=== PATIENT | male | born 1975 | race Caucasian/White ===

== ENCOUNTER 2020-08-26 18:18 | Inpatient (IN) | payer OTHER, SELFPAY ==
[2020-08-26 18:45] LABS: #Eosinphils 0.2 thou/uL (0.0-0.7); #Lymphocytes 1.6 thou/uL (1.20-3.40); #Monocytes 0.7 thou/uL (0.11-0.59); #Neutrophils 6.7 thou/uL (1.40-6.50); %Basophils 0.5 % (0.0-1.0); %Eosinophils 2.1 % (0.0-10.0); %Monocytes 7.3 % (0.0-10.0); %Neutrophils 73.1 % (42.0-75.0); Hemoglobin 14.1 g/dL (14.0-18.0); Mean Corpuscular Hemoglobin 34.2 pg (27.0-31.0); Mean Corpuscular Volume 97.8 fL (78.0-98.0); Mean Platelet Volume 7.3 fL (7.4-10.4); Platelet Count 248 thou/uL (130-400); RBC Distribution Width 12.4 % (11.5-14.5); Red Blood Cell (RBC) Count 4.14 mill/uL (4.70-6.10); White Blood Cell (WBC) Count 9.2 thou/uL (4.8-10.8)
[2020-08-26 19:09] LABS: ALT (SGPT) 67 U/L (8-55); AST (SGOT) 62 U/L (5-34); Alkaline Phosphatase 91 U/L (40-110); Anion Gap 13 mmol/L (10-20); BUN (Urea Nitrogen) 13 mg/dL (8.9-20.6); Bilirubin, Total 0.5 mg/dL (0.2-1.2); Calc. Creatinine Clearance 0 mL/min (70-130); Carbon Dioxide 23 mmol/L (22-29); Chloride 102 mmol/L (98-107); Estimated GFR-MDRD 89; Globulin 2.7 g/dL (2.4-3.5); Glucose 104 mg/dL (70-105); Lipase 8 U/L (8-78); Protein, Total 6.7 g/dL (6.0-8.3); Sodium 133 mmol/L (136-145)
--- NOTE | 2020-08-26 19:09 | RAD ---
Exam: Chest one view HISTORY:Chest pain Comparison: 02/05/2017 FINDINGS: Cardiac silhouette:Cardiomegaly Aorta: Unremarkable Pulmonary vessels: Normal Costophrenic angles: Small bilateral effusions LUNGS: Lungs are hyperinflated. Multifocal interstitial and alveolar opacities suggesting possible mu lti lobar pneumonia. Pneumothorax: No pneumothorax. Persistent opacification of the left lung apex. Osseous abnormalities: None IMPRESSION: 1. Multi lobar opacities suggesting multi lobar pneumonia. Continued surveillance is recommended. 2. Stable opacification of the left lung apex. 3. COPD.
[2020-08-26] MEDS ORDERED: Aspirin Chewable 81 MG TAB ONE ×2 (19:55→19:57)
[2020-08-26] MEDS ORDERED: Nitroglycerin 0.4 MG TAB 1 EACH ONE ×2 (19:55→22:48)
[2020-08-26] MEDS ORDERED: Furosemide 20 MG/2 ML VIAL ONE (19:58)
[2020-08-26 20:38] LABS: SARS-CoV-2 NAA Rapid Test Not Detected (NotDetected)
[2020-08-26] MEDS ORDERED: Azithromycin 500 MG VIAL ONE (20:49)
--- NOTE | 2020-08-26 21:03 | PDOC.FPRHP ---
- History of Present Illness Chief Complaint: SOB x1wk History of Present Illness: Mr. Zendejas is a 45M who presented to the ED for worsening SOB that started 1 wk ago. He went to his PCP on Sunday, who thought the SOB might be related to allergies and started him on Flonase. It did not work and he went back to his PCP on , she started him on some nebulizer breathing treatments. They did not work and he went back to his PCP on 08/25. He was diaphoretic and pale so she got an EKG with results she "didn't like" and sent him to the ED. He endorses orthopnea and PAD. 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 CXR showed multilobar opacities suggesting multilobar PNA in addition to stable opacification of the L lung apex. CBC was nml; CMP showed mild hyponatremia; BNP >2000 He denies cardiac hx aside from one episode of "swelling around his heart" and one episode of recurrent PVCs. He has never seen a Extrusion Supervisor. - Allergies/Adverse Reactions Allergies Allergy/AdvReac Type Severity Reaction Status Date / Time Penicillins Allergy Verified 08/27/20 00:06 Sulfa (Sulfonamide Allergy Verified 08/27/20 00:07 Antibiotics) - Home Medications Medication Instructions Recorded Confirmed Type Loratadine/Pseudoephedrine 1 each PO DAILY 08/27/20 08/27/20 History [Claritin-D 12 Hour Tablet] - History PMHx:COPD, hx of MAC PNA PSHx: hernia s/p repair FHx: lung cancer in dad, no DM or thyroid disease Social: tob use, EtOH abuse, marijuana use, hx of cocaine use - Review of Systems General: denies: fever/chills, weight/appetite/sleep changes Eyes: denies: vision changes ENT: reports: nasal congestion, rhinorrhea Respiratory: reports: cough, shortness of breath, exercise intolerance Cardiovascular: reports: chest pain, paroxysmal nocturnal dyspnea, orthopnea. denies: edema Gastrointestinal: denies: vomiting, diarrhea, abdominal pain, GI bleeding Genitourinary: reports: other (difficulty initiating stream). denies: incontinence - Vital signs BP: 92/78 HR: 82 RR: 22 Tmax: 97.5F Pox: 93% on RA - Physical Exam Constitutional: NAD, awake, alert and oriented, well developed HEENT: normocephalic and atraumatic, EOMI, grossly normal vision, grossly normal hearing, MMM -HEENT: White patches on oropharynx, can be scraped off Neck: supple, FROM, no LAD Chest: no-tender to palpation, no lesions Heart: RRR (difficult to auscultate), pulses present, no edema Lungs: CTAB, no respiratory distress, good air movement, no rales/rhonchi, no wheezing Abdomen: soft, no masses/distention Musculoskeletal: normal structure, normal tone, ROM grossly normal Neurological: no focal deficit Skin: no rash/lesions Heme/Lymphatic: no unusual bruising or bleeding, no purpura, no petechia, no LAD Psychiatric: normal mood and affect, good judgment and insight, intact recent and remote memory FMR H&P: Results - Labs Result Diagrams: 08/30/20 04:07 08/30/20 04:07 Lab results: WBC 9.2 thou/uL (4.8-10.8) 08/26/20 18:36 Hgb 14.1 g/dL (14.0-18.0) 08/26/20 18:36 Hct 40.5 % (42.0-52.0) L 08/26/20 18:36 MCV 97.8 fL (78.0-98.0) 08/26/20 18:36 Plt Count 248 thou/uL (130-400) 08/26/20 18:36 Neutrophils % 73.1 % (42.0-75.0) 08/26/20 18:36 Sodium 133 mmol/L (136-145) L 08/26/20 18:36 Potassium 5.0 mmol/L (3.5-5.1) 08/26/20 18:36 Chloride 102 mmol/L (98-107) 08/26/20 18:36 Carbon Dioxide 23 mmol/L (22-29) 08/26/20 18:36 BUN 13 mg/dL (8.9-20.6) 08/26/20 18:36 Creatinine 0.92 mg/dL (0.7-1.3) 08/26/20 18:36 Glucose 104 mg/dL (70-105) 08/26/20 18:36 Calcium 9.0 mg/dL (7.8-10.44) 08/26/20 18:36 Total Bilirubin 0.5 mg/dL (0.2-1.2) 08/26/20 18:36 AST 62 U/L (5-34) H 08/26/20 18:36 ALT 67 U/L (8-55) H 08/26/20 18:36 Alkaline Phosphatase 91 U/L (40-110) 08/26/20 18:36 CK-MB (CK-2) 8.0 ng/mL (0-6.6) H* 08/26/20 18:36 B-Natriuretic Peptide 2317.5 pg/mL (0-100) H 08/26/20 18:36 Serum Total Protein 6.7 g/dL (6.0-8.3) 08/26/20 18:36 Albumin 4.0 g/dL (3.5-5.0) 08/26/20 18:36 Lipase 8 U/L (8-78) 08/26/20 18:36 FMR H&P: A/P - Plan This is a 45M who presented to the ED for SOB x1wk Sepsis likely 2/2 PNA - SIRS: tachycardic, tachypneic - Clinically, lungs CTAB and satting well on RA - Hx of MAC PNA w/o immunosuppression, per pt Chronic opacities in L lung - CXR showed multilobar opacities suggestive of multilobar PNA - Started on Azithro and Rocephin in the ED Monitor QT for prolongation - 1L bolus LR - BCx ordered - Procal ordered Indeterminate trop suspected to be NSTEMI type 2 - EKG showed L anterior fascicular block and LVH, borderline prolonged QT - Trop 0.039 - CK-MB 8 - BNP 2317.5 - Trending trops, repeat EKG ordered - Caution with Zofran, Azithro, other QT prolonging agents Possible new-onset CHF - BNP 2317.5 - Given Lasix in ED - Clinically, not fluid overloaded - Endorses SOB, orthopnea, paroxysmal dyspnea - Hx of pericardial effusions - Echo ordered - Consider cards consult - Caution with fluid resuscitation EtOH abuse - Drinks EtOH daily - ASE protocol ordered Oral candidiasis - White exudates on palate, scraped off with tongue depressor - Increases suspicion for immunosuppression - Nystatin ordered Tobacco use - Smoking cessation counseling - Nicotine patch Drug use - Marijuana use - UDS ordered Dispo: inpt tele, LOS >48h Diet: HH, low Na DVT: Ruperto 40 GI Ppx: Pepcid Abx: Azithro, Rocephin IVF: SL PCP: [facility] in [facility] [place] [place] Code: Full FMR H&P: Upper Level - Plan Date/Time: 08/26/202101 Princess Vidal MD, have evaluated this patient and agree with findings/plan as outlined by internet sourcer resident. Pertinent changes/additions are listed here. HPI: 45 yo M with PMH of COPD, MAC pneumonia, and pericardial effusion presents for SOB. Patient reports his SOB has been worsening over the last few days. He presented to his PCPs office 3 days ago, reports he was diagnosed with seasonal allergies and sent home on Flonase. He reports his SOB has continued to worsen and he presented again to his PCP today who sent him to the ER. He reports symptoms of fatigue and paroxysmal nocturnal dyspnea. Denies chest pain/palpitations, fever/chills. Report rhinorrhea, denies pharyngitis. Denies nausea/vomiting/diarrhea/constipation. He currently smokes tobacco 2 PPD, has smoked since age 15. He also drinks 4-6 beers daily. ED: given nitro, Rocephin 2 g (22:42 08/26), Zofran, azithromycin 500 mg (08/27), furosemide 20 mg, nitro 0.4 mg, ASA 324 mg. Covid neg. CXR showed multifocal pneumonia and stable MAXIMO opacity, COPD EKG showed sinus tach, possible left atrial enlargement, LVH Physical exam: VS: 98.0, P87, R 18, O2 97% on RA, 150/63 General: cachectic male, no acute distress, cooperative, sitting upright in bed Mouth: poor dentition, no pharyngeal edema, + white exudates on palate that are removable Lungs: BCTA, no wheezing or crackles Cardiac: RRR, no murmurs Abd: +BS, soft, nontender to palpation Extremities: no cyanosis or edema A/P: Sepsis 2/2 CAP -Tachypneic, tachycardic, WBC wnl. Multifocal pneumonia on CXR. Hx of MAC pneumonia -Continue azithromycin and Rocephin -Procal and CRP pending -Blood and urine cx pending Likely new onset CHF -BNP 2300, however pt not fluid overloaded on exam. - formal Echo pending -s/p Lasix Ind Trops - suspect NSTEMI type 2, will continue to trend -Pt denies chest pain Tobacco Abuse -2 PPD, since age 15, 60 PY hx -Unit Leader cessation -nicotine patch while inpt Alcohol abuse -4-6 drinks daily -ASE scoring protocol -need to clarify last known drink in AM Hyponatremia -suspect 2/2 malnutrition vs alcohol abuse Protein/calorie malnutrition -2/2 diet vs alcohol abuse vs other -collateral specialist consulted Thrush -concerned for immunocompromised state -HIV, RPR, Hep C ordered -treat with nystatin powder Marijuana Abuse -aware Hx of Cocaine abuse -aware -UDS pending QTc prolongation -aware -QTc 496, on azithromycin -avoid other QT prolonging medications (Zofran) Hx COPD -no wheezing on exam, not on medications at home for this Mild transaminitis -Suspect 2/2 to alcohol abuse vs hepatic congestion vs other -AST is not 2x greater than ALT -consider liver sono in AM Diet: HH DVT ppx: Lovenox GI ppx: none PCP: [facility], [facility] Code: Full Dispo: admit to tele inpatient, LOS >48 hrs L Stephanie BINGHAM PGY3 Addendum - Attending - Attending Attestation Date/Time: 08/31/20 0436 I discussed Mr Zendejas with Dr. Cerna and Stephanie on the evening of 08/26/2020. I agree with the History, Examination, Assessment and Plan documented above with any addition or exceptions noted below.
[2020-08-26] MEDS ORDERED: Ondansetron PF 4 MG/2 ML Vial ONE (21:22)
[2020-08-26] MEDS ORDERED: cefTRIAXone\\ROCEPHIN 2 GM VIAL ONE (22:36)
[2020-08-27] MEDS ORDERED: Acetaminophen 325 MG TAB PO PRN (00:15)
[2020-08-27] MEDS ORDERED: Ondansetron ODT 4 MG TAB SL PRN (00:15)
[2020-08-27] MEDS ORDERED: Ondansetron PF 4 MG/2 ML Vial IVP PRN (00:15)
[2020-08-27 00:49] LABS: Lactic Acid 1.2 mmol/L (0.5-2.2)
[2020-08-27 01:49] LABS: Troponin I 0.041 ng/mL (< 0.028)
[2020-08-27] MEDS ORDERED: Enoxaparin Sodium 40 MG/0.4 ML SYRINGE SC SCH (02:15)
[2020-08-27 02:16] LABS: Troponin I 0.056 ng/mL (< 0.028)
[2020-08-27] MEDS ORDERED: Lactated Ringer's 1,000 ML IV SCH (04:30)
[2020-08-27 04:39] LABS: #Basophils 0.1 thou/uL (0.0-0.2); #Eosinphils 0.2 thou/uL (0.0-0.7); #Lymphocytes 1.7 thou/uL (1.20-3.40); #Monocytes 0.7 thou/uL (0.11-0.59); #Neutrophils 6.5 thou/uL (1.40-6.50); %Basophils 0.8 % (0.0-1.0); %Eosinophils 2.3 % (0.0-10.0); %Lymphocytes 18.8 % (21.0-51.0); %Monocytes 7.6 % (0.0-10.0); %Neutrophils 70.5 % (42.0-75.0); Hemoglobin 14.3 g/dL (14.0-18.0); Mean Corpuscular HGB CONC 34.2 g/dL (32.0-36.0); Mean Corpuscular Hemoglobin 33.5 pg (27.0-31.0); Mean Corpuscular Volume 97.9 fL (78.0-98.0); Mean Platelet Volume 7.4 fL (7.4-10.4); Platelet Count 260 thou/uL (130-400); RBC Distribution Width 12.4 % (11.5-14.5); Red Blood Cell (RBC) Count 4.26 mill/uL (4.70-6.10); White Blood Cell (WBC) Count 9.2 thou/uL (4.8-10.8)
[2020-08-27 05:00] LABS: ALT (SGPT) 77 U/L (8-55); AST (SGOT) 62 U/L (5-34); Alkaline Phosphatase 94 U/L (40-110); Anion Gap 10 mmol/L (10-20); BUN (Urea Nitrogen) 15 mg/dL (8.9-20.6); Bilirubin, Total 0.6 mg/dL (0.2-1.2); Calc. Creatinine Clearance 99 mL/min (70-130); Calcium 9.1 mg/dL (7.8-10.44); Carbon Dioxide 25 mmol/L (22-29); Chloride 100 mmol/L (98-107); Estimated GFR-MDRD Greater than 90; Globulin 2.7 g/dL (2.4-3.5); Glucose 90 mg/dL (70-105); Potassium 4.8 mmol/L (3.5-5.1); Protein, Total 6.7 g/dL (6.0-8.3); Sodium 130 mmol/L (136-145)
[2020-08-27 05:19] LABS: HIV (1/2) Antibody/Antigen Non-Reactive (NonReactive); HIV 1/2 INDEX 0.09 S/CO (<1.00); Hep C IgG Ab Non-Reactive (NonReactive); Hep C Index 0.08 S/CO (0-0.79); Syphilis Antibody Nonreactive (Nonreactive); Syphilis Antibody Index 0.08 S/CO (<1.00 Non-Reactive); Troponin I 0.049 ng/mL (< 0.028)
--- NOTE | 2020-08-27 06:26 | PDOC.FM ---
- Subjective Subjective: Patient was resting comfortably in bed at the time of evaluation. He endorsed mild SOB, but denied any crushing chest pain, N/V, or recent fevers or chills. Of note, the patient was questioned specifically about his former MAC infection, which he states happened approximately 10Y prior with subsequent evaluation conducted by the Department of Health. Patient denied any cause for such an infection, particularly with regard to known immunocompromise, HIV infection, IV drug use or risky sexual practices. Patient's only concern was that he wanted to have breakfast and go outside to smoke a cigarette. - Objective Vital Signs & Weight: Vital Signs (12 hours) Temp Pulse Resp BP Pulse Ox 08/27/20 03:30 97.6 F 08/27/20 03:08 104 H 24 H 112/68 98 08/27/20 02:30 98 08/27/20 00:05 97.9 F 107 H 16 115/77 98 Weight Weight 62.006 kg I&O: 08/25/20 08/26/20 08/27/20 06:59 06:59 06:59 Intake Total 981.5 Output Total 400 Balance 581.5 Result Diagrams: 08/27/20 04:20 08/27/20 04:20 Phys Exam - Physical Examination Constitutional: NAD HEENT: PERRLA, moist MMs Patchy white exudates in posterior pharynx Neck: no nodes, supple, full ROM Respiratory: no wheezing, no rales, no rhonchi E-to-A Egophany heards in RUL and RML Cardiovascular: RRR, no significant murmur, no rub Gastrointestinal: soft, non-tender, no distention, positive bowel sounds Musculoskeletal: no edema, pulses present Neurological: non-focal, moves all 4 limbs Lymphatic: no nodes Psychiatric: normal affect Skin: no rash Dx/Plan (1) Multifocal pneumonia Code(s): J18.9 - PNEUMONIA, UNSPECIFIED ORGANISM Status: Acute (2) History of Mycobacterium avium complex infection Code(s): Z86.19 - PERSONAL HISTORY OF OTHER INFECTIOUS AND PARASITIC DISEASES Status: Acute (3) New onset of congestive heart failure Code(s): I50.9 - HEART FAILURE, UNSPECIFIED Status: Acute (4) Alcohol abuse Code(s): F10.10 - ALCOHOL ABUSE, UNCOMPLICATED Status: Acute (5) Tobacco abuse Code(s): Z72.0 - TOBACCO USE Status: Acute (6) Marijuana abuse Code(s): F12.10 - CANNABIS ABUSE, UNCOMPLICATED Status: Acute (7) NSTEMI (non-ST elevated myocardial infarction) Code(s): I21.4 - NON-ST ELEVATION (NSTEMI) MYOCARDIAL INFARCTION Status: Acute - Plan Plan: Patient is a 45 y/o male with a 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 1. Multi-Lobar Pneumonia -SIRS: Tachycardic, Tachypneic -Patient has a Hx of MAC PNA w/o Immunosuppression - chronic opacities in left lung -CXR: Multi-lobar opacities -s/p 1L Azithromycin and Ceftriaxone in the ED - may consider altering drug regimen based on repeat EKG -WBCs: 9.2 -Procal: 0.06 -CRP: 0.89 -Lactic Acid: 1.2 -BCx: Pending -UCx: Pending 2. Indeterminate Troponins -Likely 2/2 to NSTEMI, Type 2 -EKG: L Anterior Fascicular Block, LVH with borderline Prolonged QT Interval -Trop: 0.039 > 0.049 -CK-MB: 8 -BNP: 2317.5 -Repeat EKG: Pending -See above for caution with Azithromycin - Jagruti DC'd 3. Possible New-Onset CHF -Patient complains of prolonged SOB, orthopnea and HUTCHINSON -Patient endorses a remote Hx of Pericardial Effusions - cause unknown -BNP: 2317.5 -s/p Lasix x1 in the ED -Echo: Pending - will consider Cardiology consult based on results -Will proceed cautiously with fluid resuscitation 4. EtOH Abuse -Patient endorses daily EtOH Abuse - last EtOH unknown -ASE Protocol -Lorazepam 2 mg PO Q4H PRN 5. Oral Candidiasis -White exudates noted on palate - easily scraped off with tongue depressor -Increased suspicion for immunosuppression -HIV: Pending -RPR: Pending -Nystatin SSW 6. Tobacco Use -Nicotine Patch 21 mg Daily 7. Drug Abuse -Patient endorses frequent MJ Abuse -UDS: Cocaine, MJ Code: Full PCP: CC Diet: HH w/ Low Sodium Activity: Ad zhang VTE PPx: None - SAUL Score: 2 Dispo: Patient is currently stable and admitted to the Telemetry Floor for treatment of Multi-Lobar Pneumonia with ongoing investigation into possible New- Onset CHF and cause for Immunocompromise. Will continue ABx as per above and monitor vital signs closely. Pending repeat EKG and Echo, will alter ABx regimen and consult Cardiology as indicated. Expected LOS > 48H. Addendum - Attending - Attending Attestation Date/Time: 08/27/20 4065 I personally evaluated the patient and discussed the management with Dr. Ashley. I agree with the History, Examination, Assessment and Plan documented above with any addition or exceptions noted below.
[2020-08-27 07:22] LABS: Amphetamine Not Detected (NotDetected); Cocaine Metabolite Screen Detected (NotDetected); Medtox Reader # READER 4; Methamphetamine Not Detected (NotDetected); Opiate Screen Not Detected (NotDetected); Phencyclidine (PCP) Not Detected (NotDetected); THC/Cannabinoid Screen Detected (NotDetected)
[2020-08-27 07:23] LABS: Barbiturates Screen Not Detected (NotDetected); Benzodiazepine Screen Not Detected (NotDetected); Medtox Control Line Valid? VALID (VALID); Methadone Not Detected (NotDetected); Oxycodone Screen Not Detected (NotDetected); Tricyclic Screen Not Detected (NotDetected)
[2020-08-27] MEDS: Famotidine 20 MG TAB PO SCH ×2 (08:19→21:28)
[2020-08-27] MEDS: Nicotine 21 MG PATCH TD SCH (08:20)
[2020-08-27] MEDS ORDERED: Lorazepam 1 MG TAB PO PRN (08:30)
[2020-08-27] MEDS ORDERED: Nystatin 100,000 Units/mL UDCUP SSW SCH (09:00)
[2020-08-27] MEDS ORDERED: FLU VACC QS2020-21(6MOS UP)/PF 60 MCG/0.5 ML SYRINGE IM ONE (09:00)
[2020-08-27] MEDS: Nystatin 500,000 UNITS/5 ML UDCUP SSW SCH ×4 (12:00→21:28)
[2020-08-27] MEDS: Sodium Chloride 1 GM TAB PO SCH (12:24)
[2020-08-27] MEDS ORDERED: Furosemide 40 MG/4 ML VIAL SLOW IVP SCH (15:00)
[2020-08-27] MEDS ORDERED: Milrinone Lactate/D5W 20 MG in Premix Bag 1 BAG IVPB SCH (15:45)
[2020-08-27] MEDS: Carvedilol 3.125 MG TAB PO SCH (16:35)
[2020-08-27] MEDS ORDERED: Azithromycin 500 MG in Sodium Chloride 0.9% 250 ML 250 ML IVPB SCH (21:00)
[2020-08-27] MEDS: cefTRIAXone\\ROCEPHIN 1 GM in Sodium Chloride 0.9% 100 ML IVPB SCH (21:28)
[2020-08-27] MEDS: Enoxaparin Sodium 60 MG/0.6 ML SYRINGE SC SCH (21:30)
[2020-08-28 04:17] LABS: #Basophils 0.1 thou/uL (0.0-0.2); #Eosinphils 0.4 thou/uL (0.0-0.7); #Lymphocytes 1.8 thou/uL (1.20-3.40); #Monocytes 0.7 thou/uL (0.11-0.59); #Neutrophils 4.5 thou/uL (1.40-6.50); %Basophils 1.3 % (0.0-1.0); %Eosinophils 4.9 % (0.0-10.0); %Lymphocytes 24.1 % (21.0-51.0); %Monocytes 9.1 % (0.0-10.0); %Neutrophils 60.7 % (42.0-75.0); Hemoglobin 15.8 g/dL (14.0-18.0); Mean Corpuscular HGB CONC 35.6 g/dL (32.0-36.0); Mean Corpuscular Hemoglobin 34.6 pg (27.0-31.0); Mean Corpuscular Volume 97.1 fL (78.0-98.0); Mean Platelet Volume 7.8 fL (7.4-10.4); Platelet Count 275 thou/uL (130-400); RBC Distribution Width 12.3 % (11.5-14.5); Red Blood Cell (RBC) Count 4.56 mill/uL (4.70-6.10); White Blood Cell (WBC) Count 7.5 thou/uL (4.8-10.8)
[2020-08-28 04:38] LABS: Iron 62 ug/dL (65-175); Iron Binding Capacity, Total 258 mcg/dL (261-462)
[2020-08-28 04:42] LABS: ALT (SGPT) 121 U/L (8-55); AST (SGOT) 88 U/L (5-34); Albumin 3.7 g/dL (3.5-5.0); Alkaline Phosphatase 92 U/L (40-110); Anion Gap 12 mmol/L (10-20); BUN (Urea Nitrogen) 15 mg/dL (8.9-20.6); Bilirubin, Total 0.5 mg/dL (0.2-1.2); Calc. Creatinine Clearance 102 mL/min (70-130); Calcium 8.7 mg/dL (7.8-10.44); Carbon Dioxide 23 mmol/L (22-29); Chloride 101 mmol/L (98-107); Estimated GFR-MDRD Greater than 90; Globulin 2.5 g/dL (2.4-3.5); Glucose 121 mg/dL (70-105); Potassium 3.7 mmol/L (3.5-5.1); Protein, Total 6.2 g/dL (6.0-8.3); Sodium 132 mmol/L (136-145)
--- NOTE | 2020-08-28 05:46 | PDOC.FM ---
- Subjective Subjective: Mr. Sanchez is doing well this morning. He denies any SOB and says he only woke up once catching his breath which is an improvement. He denies any cocaine use. - Objective Vital Signs & Weight: Vital Signs (12 hours) Temp Pulse Resp BP BP Pulse Ox 08/28/20 04:00 97.5 F L 92 15 103/80 103/80 96 08/28/20 00:05 97 08/27/20 23:47 115/84 08/27/20 23:44 98.4 F 111 H 19 115/84 97 08/27/20 19:10 97.6 F 115 H 20 111/73 95 Weight Admit Weight 62.006 kg Weight 60.827 kg I&O: 08/26/20 08/27/20 08/28/20 06:59 06:59 06:59 Intake Total 981.5 960 Output Total 620 1650 Balance 361.5 -690 Result Diagrams: 08/28/20 03:39 08/28/20 03:39 EKG Reviewed by me: Yes (tele: sinus tach 110-115s) Phys Exam - Physical Examination Constitutional: NAD HEENT: moist MMs, sclera anicteric Neck: full ROM Respiratory: no wheezing, clear to auscultation bilateral increased rate Gastrointestinal: soft, non-tender, positive bowel sounds Musculoskeletal: no edema, pulses present Neurological: moves all 4 limbs Psychiatric: normal affect, A&O x 3 Dx/Plan - Plan Plan: Patient is a 45 y/o male with a 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 1. New-Onset Biventricular HF -Patient complains of prolonged SOB, orthopnea and HUTCHINSON and endorses a remote Hx of Pericardial Effusions - cause unknown -BNP: 2317.5, s/p Lasix x1 in the ED -Echo: prethrombus in IVC, increase LV, EF <15% -Consult: Ajith () - entresto, carvedilol, coronary angiogram -Consult: Samy - milrinone drip, recommends abdominal ultrasound to evaluate for hepatomegaly and splenomegaly, consider transfer to a higher care center for possible LVAD or right ventricular biopsy -Hemachromatosis suspicion: iron low, TIBC low, ferritin increased at 373.62, transferrin saturation 24%. Seems unlikely. 2. Dilated Cardiomyopathy See plan above 3. Multi-Lobar Pneumonia -SIRS: Tachycardic, Tachypneic -Patient has a Hx of MAC PNA w/o Immunosuppression - chronic opacities in left lung -CXR: Multi-lobar opacities -s/p 1L Azithromycin and Ceftriaxone in the ED, discontinue azithromycin, continue ceftriaxone -WBCs: 9.2, Procal: 0.06, CRP: 0.89, Lactic Acid: 1.2 -BCx: Pending -UCx: Pending 4. Indeterminate Troponins -Likely 2/2 to NSTEMI, Type 2 -EKG: L Anterior Fascicular Block, LVH with borderline Prolonged QT Interval -Trop: 0.039 > 0.049 > 0.056 > 0.049 -CK-MB: 8 -BNP: 2317.5 -Repeat EKG: Pending 5. EtOH Abuse -Patient endorses daily EtOH Abuse - last EtOH unknown -ASE Protocol -Lorazepam 2 mg PO Q4H PRN 6. Oral Candidiasis -White exudates noted on palate - easily scraped off with tongue depressor -Increased suspicion for immunosuppression -HIV: negative, RPR: negative -Nystatin SSW 7. Tobacco Use -Nicotine Patch 21 mg Daily 8. Drug Abuse -Patient endorses frequent MJ Abuse -UDS: Cocaine, MJ Code: Full PCP: CC Diet: HH w/ Low Sodium Activity: Ad zhang VTE PPx: None - SAUL Score: 2 Dispo: Patient is currently stable and admitted to the Telemetry Floor for treatment newly diagnosed biventricular heart failure and continued treatment of multi-lobar pneumonia with ongoing investigation into cause for immunocompromise. Will continue treatment as per above and monitor vital signs closely. Consider transfer to a higher care center. Expected LOS > 48H. Addendum - Attending - Attending Attestation Date/Time: 08/28/20 3636 I personally evaluated the patient and discussed the management with Dr. Garces. I agree with the History, Examination, Assessment and Plan documented above with any addition or exceptions noted below. Patient currently on a milrinone drip this a.m. Appreciate recs from Dr. Pablo. [facility] unable to [facility] pt as a transfer. Ct chest ordered and additional labs to look for other causes of pneumonia per recs of Dr. Pablo. Consulting ID.
--- NOTE | 2020-08-28 06:10 | CON ---
DATE OF CONSULTATION: 08/27/2020 SERVICE: Advanced Heart Failure Cardiology Consult Service. REASON FOR CONSULT: Acute heart failure. HISTORY OF PRESENT ILLNESS: Mr. Keyur Zendejas, previously healthy 45-year-old gentleman, presented with severe fatigue and shortness of breath. 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 In fact, he was working full-time at [employer] in [place], [place]. He did not notice there is anything really wrong. He denies any fever, chills, or any infectious spells. About 10 weeks ago, he began to notice progressive fatigue. He could do less and less at work and on the weekend all he could do was sleep. About 10 days ago, his symptoms become much more severe. He cannot sleep at night. He will go to sleep at night and then 2 hours later, he will wake up, gasping for breath, walk around, go back to sleep again and wake up. Then for the past week, he was not able to work at all. Eventually, he called his primary care. His primary care physician gave him medication for allergy. It did not have an effect and he went back to his primary care again on Sunday. The ECG was done, it was concerning to the primary care, then he was referred to [facility] for admission. PAST MEDICAL HISTORY: During this initial visit, he denied of having any past medical issues. SOCIAL HISTORY: 1. He has smoked for 30 years, is an active smoker, a pack per day, so he has a 30 pack-year smoking history. 2. He is an active drinker. He drinks about 4 to 8 beers per day or perhaps more. However, he has only been doing that for about 1 to 2 years, that is what he claims. 3. Illicit drug use: He denies any illicit drug use; however, he was tested positive for cocaine and also tested positive for marijuana. After that, he denies cocaine use, but he admits to marijuana use. FAMILY HISTORY: His father at age 50 due to brain cancer; however, his father had a heart attack and received stents at age 47. His mother is still alive and well at age 70. He has one brother who is without any problems. REVIEW OF SYSTEMS: GENERAL: He is fatigued. HEENT: There is no change in vision, hearing, or swallowing. PULMONARY: Please see HPI. CARDIAC: Please see HPI. GI: He does not have any complaints of nausea, vomiting, or diarrhea. Until more recently, he did not have early satiety. : He is able to urinate well. MUSCULOSKELETAL: He does not complain of any joint or muscular pains. INTEGUMENT: There is no new skin breakdown. NEUROLOGIC: There are no new focal deficits or weaknesses. MEDICATIONS: His current medications include; 1. Aspirin 81 mg daily. 2. Carvedilol at 1.56 b.i.d. 3. Ceftriaxone 1 g daily. 4. Enoxaparin 60 mg b.i.d. 5. Famotidine 20 mg b.i.d. 6. Ativan 2 mg q.4 hours p.r.n. 7. Nicotine patch 21 mg daily, then switch. 8. Entresto at 24/ combination half tablet b.i.d. PHYSICAL EXAMINATION: VITAL SIGNS: Heart rate 106, blood pressure 115/83, and he is in sinus tachycardia. His telemetry was reviewed, he is in sinus tachycardia without concerning arrhythmia. GENERAL: He is a thin appearing gentleman. However, he is very fatigued. He is also very short of breath. Taking a few steps will cause shortness of breath and after talking will cause shortness of breath. HEENT: Showed EOMI. Oropharynx showed very poor dentition, but moist mucosa. NECK: His JVP is about 11 cm. PULMONARY: He has good air movement bilaterally, maybe there is very very small amount of crackles at the deep left base. CARDIAC: Tachycardic. Normal S1 and S2, there is 2/6 holosystolic murmur at the apex. However, his PMI is severely laterally and inferiorly displaced, it is about 8th rib or lower and half way towards the mid axillary line. ABDOMEN: Soft, nontender, but the liver seemed to be enlarged. EXTREMITIES: His lower extremities are currently without edema; however, it is cool to touch. Barely palpable radial pulses and minimal dorsalis pedis pulses. DIAGNOSTIC STUDIES: His echocardiogram from August 27, 2020, was reviewed. 1. His left ventricle is very dilated with LVIDd of 8.05 cm. 2. His left ventricular ejection fraction is 10% or worse. 3. His has moderate to severe mitral regurgitation. 4. He has grade 3 diastolic dysfunction, which is a restrictive filling pattern. 5. His right ventricle is dilated with moderately depressed right ventricular function. ASSESSMENT: Unfortunate 45-year-old gentleman presented with acute heart failure with reduced ejection fraction. It is dilated cardiomyopathy with combined systolic and diastolic dysfunction. He also has right ventricular dysfunction. Thus it is biventricular failure. His heart failure is likely to be chronic and progressive given his echocardiographic findings. Right now, the cause of his cardiomyopathy is unknown. He has look of a post-myocarditis. However, drug use, alcohol, and also coronary artery disease that is undiagnosed can all play a role. He is definitely showing signs of poor perfusion. Being so fatigued, being unable to do any meaningful activities, and unable to really concentrate during exam, all points to hypoperfusion. Fortunately, he is not too volume overloaded, it is only mildly so. Thus at this point, we need to optimize his hemodynamics, so we could make a diagnosis. If at all possible, slowly add on heart failure medications. Ideally, he should be transferred to a center that can evaluate him for urgent left ventricular assist device or urgent heart transplant evaluation. If this is a rapidly progressing myocarditis, he does not have very much time. Please see the following for my detailed recommendations. RECOMMENDATIONS: 1. Agree with starting milrinone. Start at 0.125 mcg/kg per minute. If his systolic blood pressure remains above 95 mmHg, increase milrinone to 0.25 mcg/kg per minute. 2. Agree with starting Entresto 24/26 half tablet twice a day. 3. If the patient suddenly drops his blood pressure, stop milrinone immediately and switch to dobutamine at 2.5 mcg/kg per minute and then titrate up to 5 mcg/kg per minute. 4. If the patient drops the blood pressure, he needs to transfer to the CCU immediately. At that point, a central line will be needed. Likely at that point, he will need combination of dobutamine plus norepinephrine. 5. Ideally, a coronary angiogram will be useful. Identifying critical blockage can provide a good solution to solve this problem. 6. Ideally, a right ventricular biopsy to look for inflammatory cells of myocarditis is also good to do. However, due to lack of insurance, he will probably not be able to transfer to a center that can perform this. 7. If at all possible, please assist the patient in finding a center who would take an unfunded patient for urgent advanced heart failure evaluation. 8. Please work with Case Management and Heart Failure Team in establishing long- term medication for heart failure. 9. Please do ultrasound of the abdomen to look for hepatomegaly and also look for splenomegaly. 10. Please assist patient in establishing Medicaid or Medicare. He absolutes needs healthcare insurance. It has been a pleasure taking care of Mr. Keyur Zendejas. If you have any questions, please give me a call. This consultation took about 70 minutes. This includes personally performing history and physical, reading of echocardiogram, coordinating care with multiple services, holding family meeting with the patient and his mother, and direct patient interaction. Job ID: [id number] [facility]Rand
--- NOTE | 2020-08-28 07:36 | CON ---
DATE OF CONSULTATION: 08/27/2020 INDICATION FOR CONSULTATION: A 45-year-old male with a history of drug use and alcohol abuse, who presented with worsening dyspnea and an echo that demonstrated an EF of less than 15%. We are asked to see him for this. HISTORY: This is a pleasant 45-year-old gentleman who has a past medical history significant for MAC pneumonia approximately 10-12 years ago and a pericardial effusion due to unknown cause in 1998. He also has a history significant for at least a 53-slss-iyac history with the patient endorsing up to 5 packs a day smoked at one point and alcohol use 4-8 beers per day, as well as marijuana use, who presented to the ED for worsening dyspnea over the last week. He reports that this past Sunday, he went to his primary care provider, Concepcion Wilson in [place], for dyspnea and she diagnosed him with seasonal allergies and gave him a script for Flonase, which he reported did not help. He then returned to the clinic on Sunday and she gave him a nebulizer which he reported did not help. He returned once again and she performed an EKG at that time after which she recommended he go to a cardiac hospital in [place] to be evaluated. He spoke with his mother and agreed to meet her at the [facility] as this was a mid point for both of them. He reports that along with the worsening dyspnea over the last week, he does endorse new orthopnea and a dry intermittent cough. He denies any fever or any chest pain, palpitations, chest tightness, or abdominal pain. He reports that these are new symptoms and he has never experienced this before. Upon evaluation in the ER he was found to have an initial troponin of 0.039 with a BNP of 2317, and a chest x-ray demonstrated multilobar opacities suggesting multilobar pneumonia, stable opacification of the left lung apex, and COPD. He was given 20 mg of IV Lasix and started on ceftriaxone and azithromycin for his pneumonia. Today, he continues to endorse orthopnea and dyspnea and continued to deny any chest pain or tightness. His troponins were monitored and peaked at 0.056 before down trending. At this time, he has a positive balance on his fluid intake of 361 mL. PAST MEDICAL HISTORY: Significant for the above history of MAC pneumonia, treated by the health department; a pericardial effusion due to unknown cause in 1998, treated with reported anti-inflammatories, what looks like COPD based on the chest x-ray finding; history of hypertension that resolved on its own per patient without treatment. FAMILY HISTORY: Father had lung cancer from smoking and had a myocardial infarction at age 47, at age 50. Paternal grandfather had an AL at age 52 and . SOCIAL HISTORY: The patient endorses smoking 2 packs a day up until last week when he started to have difficulty breathing. 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 Endorses drinking 4-8 beers per day. Endorses occasional marijuana use. The patient did not endorse cocaine use, though this came out positive on his urine drug screen. ALLERGIES: PENICILLIN AND SULFA. MEDICATIONS: Prior to admission included 1. Claritin-D. 2. Flonase. 3. Nebulized treatments. REVIEW OF SYSTEMS: A 12-point review of systems is unremarkable except for what was noted in history of present illness. PHYSICAL EXAMINATION: GENERAL: A slender appearing, pleasant gentleman, who is in no acute distress at this time. VITAL SIGNS: Temperature 97.4, pulse 108, respiratory rate 22, O2 saturation 98% on room air, blood pressure 109/78. HEENT: Head is normocephalic and atraumatic. NECK: Supple with full range of motion. Trachea midline. JVD present. CHEST: Diminished breath sounds on bilateral lower lobes. No wheezing, rales, or rhonchi appreciated. CARDIOVASCULAR: Regular rate and rhythm with normal S1, S2 with no notable murmurs appreciated. ABDOMEN: Positive bowel sounds without any masses appreciated. EXTREMITIES: No clubbing, cyanosis, or edema. Full range of motion throughout. NEUROLOGIC: He appears to be neurologically intact without any gross focal motor deficits appreciated. LABORATORY DATA: Sodium 130, potassium 4.8, chloride 100, BUN 15, creatinine 0.83, GFR greater than 90, AST 62, ALT is 77, troponin 0.049, C-reactive protein 0.89, BNP 2317, procalcitonin 0.06, TSH 1.99. IMPRESSION: 1. Reduced ejection fraction heart failure. Echocardiogram today demonstrates an ejection fraction less than 15% with a significantly increased left ventricular size and restrictive filling pattern noted. Due to the nature of his presentation and the severity of his disease, this has likely been a chronic problem. He was given 20 mg IV Lasix on admission and is still positive on his fluid status. We will add a half tab Entresto b.i.d. and 1.56 mg p.o. b.i.d. Coreg to be held with systolics less than 100. We will also start the patient on 81mg aspirin and will give the patient another dose of 40 mg of IV Lasix to see if this helps him better diurese. The patient will likely benefit from a cardiac catheterization and a LifeVest before he goes home. It appears that the patient is uninsured at this time and would recommend Case Management be involved to help the patient get LifeVest. 2. Dilated cardiomyopathy. See recommendations above. 3. History of drug use. The patient admits to marijuana use, but does not admit to cocaine use, though cocaine is positive on urine drug screen. 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 4. Tobacco abuse. The patient reports that he decided to cut back to 1 pack a day this past week due to worsening dyspnea. Continue to encourage patient to stop smoking as this has likely contributed to his cardiac pathology. 5. Alcohol abuse. The patient drinks up to 4 to 8 beers per day. Continue ASE protocol per primary team. 6. Indeterminate troponins, peaked at 0.056 and it has since trended down. Patient denies chest pain at this time. 7. 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 The patient has a high likelihood of developing a clot and downward side effects of that including stroke. The patient is on 60 mg of Lovenox b.i.d. at this time for therapeutic Lovenox. Would recommend to continue this at this time. 8. Pneumonia. Continue IV antibiotics per primary team. Dr. López evaluated the patient during the consultation and agrees with the assessment and plan. We will continue to follow along with you during the patient's hospital course. Job ID: [id number] [facility]
[2020-08-28] MEDS: Carvedilol 3.125 MG TAB PO SCH ×2 (07:50→16:22)
[2020-08-28] MEDS: Aspirin 81 mg Enteric Coated Tablet PO SCH (07:52)
[2020-08-28] MEDS: Nicotine 21 MG PATCH TD SCH (07:52)
[2020-08-28] MEDS: Enoxaparin Sodium 60 MG/0.6 ML SYRINGE SC SCH ×2 (07:52→21:30)
[2020-08-28] MEDS: Nystatin 500,000 UNITS/5 ML UDCUP SSW SCH ×4 (07:52→21:30)
[2020-08-28] MEDS: Famotidine 20 MG TAB PO SCH ×2 (07:52→21:30)
[2020-08-28] MEDS: Sodium Chloride 1 GM TAB PO SCH (08:01)
[2020-08-28] MEDS ORDERED: Iopamidol-370 76% 500 ML 1 ML ONE (09:18)
--- NOTE | 2020-08-28 11:45 | RAD ---
RADIOGRAPH CHEST 2 VIEW: DATE: 08/28/2020 TIME: 11:32 AM HISTORY: 45-year-old male follow-up abnormal chest radiograph. "Multilobar pulmonary opacities" COMPARISON: 08/26/2020 FINDINGS: Again noted is the severe left apical pleural thickening, chronic left apical volume loss with trache al deviation to the left, and multifocal patchy pulmonary opacities throughout the left upper and mid lung zones. This appearance has not changed since 08/26/2020. Although the left apical pleural thi ckening was present on 02/05/2017 chest radiograph, along with tracheal deviation to the left, most of the left upper and mid lung zone pulmonary opacities were not present at that time. However, on a left shoulder radiograph of 01/14/2020, those left pulmonary opacities were present, and appears similar to the current chest radiograph. Therefore, these appear to be severe chronic pulmonary wagoner es on the left. There are extensive contralateral apical bullae and hyperlucency in the right upper lobe. Diffusely prominent interstitial markings throughout the right mid and lower lung zones appears simil ar to 08/26/2020. Blunting of the lateral costophrenic angles bilaterally on frontal view. No interval change overall in the frontal view compared to 08/26/2020. Lateral view demonstrates mild blunting of bilateral posterior costophrenic angles. No cardiomegaly. IMPRESSION: 1) severe left upper lobe pulmonary changes and left apical pleural changes, appear to be chronic, si gnificantly worse since 02/05/2017, but apparently stable since 01/14/2020. This appearance is suggestive of sequelae of prior inflammatory process such as previous tuberculosis, previous severe p neumonia, and/or pneumoconiosis. 2) severe paraseptal emphysema involving right upper lobe. 3) bilateral pleural thickening. 4) interstitial densities throughout the right mid and lower lung zones. Uncertain whether chronic or acute. 5) recommend continued follow-up..
--- NOTE | 2020-08-28 14:15 | PDOC.BPN ---
- Brief Progress Note Called [facility] in [place], [place] to inquire about possible transfer. Was informed they have no beds. This is the second attempt made as Dr. Senthil Cerna tried to call last night.
--- NOTE | 2020-08-28 15:01 | ULT ---
Sonogram abdomen complete HISTORY: Upper abdomen pain. Dyspnea. FINDINGS: Gallbladder shows no focal abnormalities. Some artifactual echogenicity is noted on several images. Common duct is 0.2 cm. Liver unremarkable without focal mass or intrahepatic biliary dilatation. No f ree fluid. The spleen, kidneys, and visualized portions of the abdominal aorta, IVC, and pancreas are within nor mal limits. IMPRESSION : No abnormalities are demonstrated.
[2020-08-28] MEDS: Milrinone Lactate/D5W 20 MG in Premix Bag 1 BAG IVPB SCH ×2 (16:21→22:42)
[2020-08-28 17:14] LABS: HBSAB Concentration Less than 8.00 mIU/mL; HBSAg Index 0.17 S/CO (0-0.99); Hep B Core Total Ab Non-Reactive (NonReactive); Hep B Core Total Index 0.05 S/CO (0-0.79); Hep B Surf AB Non-Reactive (NonReactive); Hep B Surf Ag Non-Reactive S/CO (NonReactive)
--- NOTE | 2020-08-28 17:24 | PRG ---
DATE OF SERVICE: 08/28/2020 SERVICE: Advanced Heart Failure Cardiology Consulting Service. SUBJECTIVE: Mr. Zendejas had a good day. He felt much better with combination of milrinone and also IV Lasix. He is able to breathe easier. He was able to sleep better. He says the best night's sleep he had in about 2 weeks. He also noticed that he has much more energy level and he is less short of breath. He was much pleased with the results. Due to his chest x-ray findings, questions were asked. He was treated for Mycobacterium avium-intracellulare. However, he did not finish the treatment. He also had multiple sexual partners in the past. The last one he came with several months ago. He denied injectable drug use. He does admit to marijuana use. Thus, this completes a more accurate picture of his status. REVIEW OF SYSTEMS: GENERAL: There is no fever, chills, or productive cough. HEENT: There is no change in vision, hearing, or swallowing. PULMONARY: He is less short of breath. CARDIAC: There is no palpitation, chest pain, or syncope. GI: There is no nausea, vomiting, or diarrhea. : He is able to urinate on his own. MUSCULOSKELETAL: There is no muscle or joint pains. INTEGUMENT: There are no skin breakdowns. NEUROLOGIC: There are no new focal deficits or weaknesses. MEDICATIONS: He is currently on are, 1. Aspirin 81 mg daily. 2. Carvedilol at 1.5 twice a day. 3. Ceftriaxone at 1 g daily. 4. Enoxaparin at 60 mg twice a day. 5. Pepcid 20 mg b.i.d. 6. Milrinone currently at 0.125 mcg/kg/min. 7. Nicotine patch 21 mg daily. 8. Nystatin swish and swallow 500,000 units. 9. Sacubitril/valsartan half tablet twice a day. The telemetry was reviewed. He shows sinus rhythm with occasional PVC. There is no other concerning rhythm. PHYSICAL EXAMINATION: VITAL SIGNS: His most recent vitals are heart rate 97, blood pressure 107/86. GENERAL: He is alert and conversational, resting comfortably in bed and also sitting up easily. He is more energetic and he is able to speak in longer sentences today than yesterday. HEENT: Shows EOMI. His oropharynx has really poor dentition. There is some possible white material. He also has noticeable temporalis wasting to suggest chronic malabsorption or chronic malnutrition. NECK: His JVP is only about 8 or 9 cm today. Thus, he is not volume overload today. PULMONARY: There is good air movement, however, there are some fine Velcro-like crackles. CARDIAC: Regular rate and rhythm. Normal S1, S2. There is 2/6 holosystolic murmur near the apex. His PMI is very much inferiorly and laterally displaced. ABDOMEN: Soft, nontender. Positive bowel sounds. EXTREMITIES: His lower extremities are skinny without edema. LABORATORY DATA: His laboratory values today are white cell count 7.5, hemoglobin 5.8, platelets 295. His chemistry shows sodium 132, potassium 3.6, BUN 15, creatinine 0.8. His other laboratory values show that his ferritin is mildly elevated at 374. His iron is low at 62. His TIBC also reduced at 258. He has a persistently elevated AST and ALT. This is just a chronic liver dysfunction or chronic liver damage. Chest x-ray was reviewed, 1. It shows mild cardiomegaly. 2. It shows bilateral infiltrates and scars on the lung, with prominent infiltrates in the right lung. 3. There are reticulonodular patterns in bilateral lungs. 4. There is also possibility of cavitary lesions. 5. There is pleural effusion. ASSESSMENT: 45-year-old gentleman has an underlying infectious and possibly immunodeficient process driving this whole picture. His chest x-ray finding of infiltrates and scars in bilateral lungs, especially in the right is concerning for an active Mycobacterium avium-intracellulare fungus or tuberculosis infections. This needs to be quickly checked. An infectious process could be driving his cardiomyopathy. He resides in [place] Heart Association stage C, [place] Heart Association class IIIB heart failure with reduced ejection fraction. He also has a right ventricular dysfunction. Currently, he is euvolemic. With augmentation of milrinone, he is heading toward compensated. We will attempt to increase his milrinone today. If his liver enzymes improve, then we know it is from poor perfusion. If the liver enzymes does not improve or gets worse, then this is probably infectious process. If it is possible, the eventual goal will be turning off the milrinone, and discharging him on combination of carvedilol and Entresto plus as needed diuretics. Please see the following for my recommendations. RECOMMENDATIONS: 1. Consider consulting infectious disease specialist too for this case. 2. Please check for hepatitis B infection. Testing includes hepatitis B surface antigen, hepatitis B surface antibody, hepatitis B core antibody, hepatitis B e-antigen, quantitative PCR for HBV DNA, a blood test for tuberculosis such as gamma interferon or T-Spot, blood test for fungus such as Fungitell. 3. Perform CT scan of the chest to look for active HE or tuberculosis infection. 4. If that IV dye is given, the patient can receive IV fluids to clear the dye, that will be 1 mL/kg/min for either 6 to 12 hours. 5. Increase milrinone to 0.25 mcg/kg/min. 6. Increase carvedilol to 3.125 p.o. b.i.d., eventually we will increase up to 6.25. 6.25 mg twice a day is the minimum threshold to obtain survival benefit. 7. Currently, he does not need diuretics. However, he will likely to need diuretics in the future. 8. Coronary angiogram will also be helpful. It has been a pleasure of taking care of Mr. Zendejas. If you have any questions, please give me a call. Visitation time was 50 minutes today. This includes personally performing history and physical, reading chest x-ray, reviewing multiple data sources, coordinating care with other service, holding family meeting to fully understand his past with their current goals, and direct patient interaction. Job ID: [id number] [facility]
--- NOTE | 2020-08-28 17:53 | CT ---
CT Chest W Con History: Mycobacterium avium infection Comparison: Chest radiograph same day Findings: Severe scarring with cavitation the left upper lobe with cephalization of the hilum. Lentif orm opacity is seen involving the lingula. Severe background centrilobular and paraseptal emphysema. Thick bands of scar in both upper lobes. Aortic contour is nonaneurysmal. Heart size is enlarged. The left ventricle is dilated. Upper abdomen is relatively unremarkable. No acute osseous abnormality. Thoracic spine is intact. Bonifacio rnum and manubrium are intact. Impression: 1. Findings of chronic atypical infectious process such as mycobacterium avium. There is extensive sc ar with cicatrization along with cavitation the left lung apex. Lentiform focus of scar is noted within the lingula for which a follow-up CT of the chest in 6 months is recommended. 2. Cardiomegaly with dilated left ventricle suggesting dilated cardiomyopathy. Nonemergent cardiology consultation with echo evaluation may be beneficial. 3. High-grade background severe centrilobular and paraseptal emphysema for age.
[2020-08-28] MEDS: cefTRIAXone\\ROCEPHIN 1 GM in Sodium Chloride 0.9% 100 ML IVPB SCH (21:31)
[2020-08-29 03:54] LABS: #Basophils 0.1 thou/uL (0.0-0.2); #Eosinphils 0.5 thou/uL (0.0-0.7); #Lymphocytes 1.6 thou/uL (1.20-3.40); #Monocytes 0.8 thou/uL (0.11-0.59); #Neutrophils 5.1 thou/uL (1.40-6.50); %Basophils 1.4 % (0.0-1.0); %Eosinophils 5.6 % (0.0-10.0); %Lymphocytes 19.9 % (21.0-51.0); %Monocytes 9.9 % (0.0-10.0); %Neutrophils 63.1 % (42.0-75.0); Mean Corpuscular HGB CONC 35.6 g/dL (32.0-36.0); Mean Corpuscular Hemoglobin 34.7 pg (27.0-31.0); Mean Corpuscular Volume 97.5 fL (78.0-98.0); Mean Platelet Volume 7.2 fL (7.4-10.4); Platelet Count 273 thou/uL (130-400); RBC Distribution Width 12.4 % (11.5-14.5); Red Blood Cell (RBC) Count 4.61 mill/uL (4.70-6.10); White Blood Cell (WBC) Count 8.1 thou/uL (4.8-10.8)
[2020-08-29 04:16] LABS: ALT (SGPT) 99 U/L (8-55); AST (SGOT) 48 U/L (5-34); Albumin 3.4 g/dL (3.5-5.0); Alkaline Phosphatase 79 U/L (40-110); Anion Gap 13 mmol/L (10-20); BUN (Urea Nitrogen) 16 mg/dL (8.9-20.6); Bilirubin, Total 0.4 mg/dL (0.2-1.2); Calc. Creatinine Clearance 97 mL/min (70-130); Calcium 8.3 mg/dL (7.8-10.44); Carbon Dioxide 21 mmol/L (22-29); Chloride 105 mmol/L (98-107); Estimated GFR-MDRD Greater than 90; Globulin 2.4 g/dL (2.4-3.5); Glucose 104 mg/dL (70-105); Potassium 3.9 mmol/L (3.5-5.1); Protein, Total 5.8 g/dL (6.0-8.3); Sodium 135 mmol/L (136-145)
--- NOTE | 2020-08-29 06:04 | PDOC.FM ---
- Subjective Subjective: Mr. Zendejas is feeling well today. His shortness of breath is much improved. - Objective Vital Signs & Weight: Vital Signs (12 hours) Temp Pulse Resp BP BP BP Pulse Ox 08/29/20 04:00 98.6 F 92 18 105/75 96 08/29/20 00:58 96 08/29/20 00:00 56 L 114/75 114/75 08/28/20 20:00 98.3 F 92 18 104/81 104/81 93 L Weight Admit Weight 62.006 kg Weight 59.511 kg I&O: 08/27/20 08/28/20 08/29/20 06:59 06:59 06:59 Intake Total 981.5 1697.6 2290 Output Total 620 3250 2350 Balance 361.5 -1552.4 -60 Result Diagrams: 08/29/20 03:43 08/29/20 03:43 EKG Reviewed by me: Yes (tele: Sinus rhythm and sinus tach 80-110s) Phys Exam - Physical Examination Constitutional: NAD HEENT: moist MMs, sclera anicteric Neck: full ROM Respiratory: no wheezing, clear to auscultation bilateral Cardiovascular: RRR, no significant murmur Gastrointestinal: soft, non-tender, no distention Musculoskeletal: no edema, pulses present Neurological: moves all 4 limbs Psychiatric: normal affect, A&O x 3 Dx/Plan - Plan Plan: Patient is a 45 y/o male with a 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 1. New-Onset Biventricular HF -Patient complains of prolonged SOB, orthopnea and HUTCHINSON and endorses a remote Hx of Pericardial Effusions - cause unknown -BNP: 2317.5, s/p Lasix x1 in the ED -Echo: prethrombus in IVC, increase LV, EF <15% -Consult: Ajith () - entresto, carvedilol, coronary angiogram -Consult: Samy - increased milrinone drip, increased carvedilol. Keep SBP >90. -Hemachromatosis suspicion: iron low, TIBC low, ferritin increased at 373.62, transferrin saturation 24%. Seems unlikely. -Abdominal ultrasound normal -Called [facility] on two occasions for potential transfer and was informed no beds were available. 2. Dilated Cardiomyopathy -Suspicion for infectious tachycardia -HIV, RPR, Hep B were negative -HIV RNA pending, TB pending, fungal studies pending -Consult: Moiz: awaiting recs 3. Multi-Lobar Pneumonia -SIRS: Tachycardic, Tachypneic -Patient has a Hx of MAC PNA w/o Immunosuppression - chronic opacities in left lung -CXR: Multi-lobar opacities -s/p 1L Azithromycin and Ceftriaxone in the ED, discontinue azithromycin, continue ceftriaxone -WBCs: 9.2, Procal: 0.06, CRP: 0.89, Lactic Acid: 1.2 -BCx: neg -UCx: neg -CT chest: chronic MAC, cardiomegaly, emphysema 4. Indeterminate Troponins -Likely 2/2 to NSTEMI, Type 2 -EKG: L Anterior Fascicular Block, LVH with borderline Prolonged QT Interval -Trop: 0.039 > 0.049 > 0.056 > 0.049 -CK-MB: 8 -BNP: 2317.5 5. EtOH Abuse -Patient endorses daily EtOH Abuse - last EtOH unknown -ASE Protocol -Lorazepam 2 mg PO Q4H PRN 6. Oral Candidiasis -White exudates noted on palate - easily scraped off with tongue depressor -Increased suspicion for immunosuppression -HIV: negative, RPR: negative -Nystatin SSW 7. Tobacco Use -Nicotine Patch 21 mg Daily 8. Drug Abuse -Patient endorses frequent MJ Abuse -UDS: Cocaine, MJ Code: Full PCP: CC Diet: HH w/ Low Sodium Activity: Ad zhang VTE PPx: None - SAUL Score: 2 Dispo: Will speak with Samy today to ask how long patient should be on milrinone. Follow López recs to determine if patient will receive cath soon. Follow Moiz recs. Discharge pending completed workup. Addendum - Attending - Attending Attestation Date/Time: 08/29/20 4705 I personally evaluated the patient and discussed the management with Dr. Garces. I agree with the History, Examination, Assessment and Plan documented above with any addition or exceptions noted below. Patient is feeling a little better this morning. He remains on the milrinone drip. Awaiting ID consult. Will f/u with cards recs. Liver enzymes improving.
[2020-08-29] MEDS: Nicotine 21 MG PATCH TD SCH (08:32)
[2020-08-29] MEDS: Nystatin 500,000 UNITS/5 ML UDCUP SSW SCH ×4 (08:32→21:17)
[2020-08-29] MEDS: Carvedilol 3.125 MG TAB PO SCH ×2 (08:33→16:20)
[2020-08-29] MEDS: Aspirin 81 mg Enteric Coated Tablet PO SCH (08:33)
[2020-08-29] MEDS: Famotidine 20 MG TAB PO SCH ×2 (08:33→21:17)
[2020-08-29] MEDS: Enoxaparin Sodium 60 MG/0.6 ML SYRINGE SC SCH ×2 (08:33→21:17)
[2020-08-29] MEDS: Sodium Chloride 1 GM TAB PO SCH (08:34)
--- NOTE | 2020-08-29 08:52 | EKG ---
Test Reason : STAT Blood Pressure : / mmHG Vent. Rate : 103 BPM Atrial Rate : 103 BPM P-R Int : 152 ms QRS Dur : 108 ms QT Int : 386 ms P-R-T Axes : 090 -51 120 degrees QTc Int : 505 ms Sinus tachycardia Left atrial enlargement Left anterior fascicular block Left ventricular hypertrophy with repolarization abnormality Abnormal ECG When compared with ECG of 26-AUG-2020 18:23, (Unconfirmed) No significant change was found Confirmed by DR. Elina LEON ([id number]) on 08/29/2020 8:51:53 AM Referred By: Confirmed By:DR. Elina LEON
--- NOTE | 2020-08-29 19:40 | PDOC.CPN ---
- Subjective Date: 08/19/20 Time: 17:00 - Review of Systems General: denies: fever/chills, weight/appetite/sleep changes, night sweats, fatigue Respiratory: denies: cough, congestion, shortness of breath, exercise intolerance Cardiovascular: denies: chest pain, palpitation, edema, paroxysmal nocturnal dyspnea, orthopnea Gastrointestinal: denies: nausea, vomiting, diarrhea, constipation, abd pain, GI bleeding Musculoskeletal: denies: pain, tenderness, stiffness, swelling, arthriti s/arthralgias Neurological: denies: numbness, syncope, seizure, weakness - Objective Allergies/Adverse Reactions: Allergies Allergy/AdvReac Type Severity Reaction Status Date / Time Penicillins Allergy Verified 08/27/20 00:06 Sulfa (Sulfonamide Allergy Verified 08/27/20 00:07 Antibiotics) Visit Medications: Current Medications Aspirin (Aspirin 81 Mg Enteric Coated Tablet) 81 mg PO DAILY [facility] Last Admin: 08/29/20 08:33 Dose: 81 mg Documented by: Carvedilol (Carvedilol 3.125 Mg Tab) 3.125 mg PO BID-WM [facility] Last Admin: 08/29/20 16:20 Dose: 3.125 mg Documented by: Enoxaparin Sodium (Enoxaparin Sodium 60 Mg/0.6 Ml Syringe) 60 mg SC 0900,2100 [facility] Last Admin: 08/29/20 08:33 Dose: 60 mg Documented by: Famotidine (Famotidine 20 Mg Tab) 20 mg PO BID [facility] Last Admin: 08/29/20 08:33 Dose: 20 mg Documented by: Ceftriaxone Sodium 1 gm/ (Sodium Chloride) 100 mls @ 200 mls/hr IVPB 2200 [facility] Last Admin: 08/28/20 21:31 Dose: 100 mls Documented by: Milrinone Lactate/Dextrose 20 (mg/ Device) 100 mls @ 4.65 mls/hr IVPB INF [facility] Last Admin: 08/28/20 22:42 Dose: 100 mls Documented by: Lorazepam (Lorazepam 1 Mg Tab) 2 mg PO Q4H PRN PRN Reason: Anxiety/Agitation Last Admin: 08/27/20 12:30 Dose: 2 mg Documented by: Nicotine (Nicotine 21 Mg Patch) 21 mg TD DAILY [facility] Last Admin: 08/29/20 08:32 Dose: Not Given Documented by: Nystatin (Nystatin 500,000 Units/5 Ml Udcup) 500,000 units SSW QID [facility] Last Admin: 08/29/20 16:20 Dose: 500,000 units Documented by: Sodium Chloride (Flush - Normal Saline 10 Ml Syringe) 10 ml IVF PRN PRN PRN Reason: Saline Flush Last Admin: 08/28/20 21:31 Dose: 10 ml Documented by: Sodium Chloride (Sodium Chloride 1 Gm Tab) 1 gm PO DAILY [facility] Last Admin: 08/29/20 08:34 Dose: 1 gm Documented by: Vital Signs & Weight: Vital Signs Temp Pulse Resp BP BP Pulse Ox 08/29/20 15:26 97.8 F 88 16 109/81 109/81 98 08/29/20 11:13 98/68 08/29/20 11:11 97.9 F 95 20 98/68 95 08/29/20 08:19 114/76 08/29/20 07:53 97 Admit Weight 136 lb 11.2 oz Weight 131 lb 3.2 oz - Quality Measures Condition: Heart Failure CV meds: Beta Joanie: Yes, NICOLE/ARB: Yes - Physical Exam Neck: no JVD/HJR Cardiac: regular rate and rhythm, no murmur Lungs: clear to auscultation, no wheeze, rales, rhonchi Neuro: grossly intact Extremities: no cyanosis, no clubbing, no edema Musculoskeletal: normal range of motion - Labs Result Diagrams: 08/29/20 03:43 08/29/20 03:43 Troponin/CKMB CK-MB (CK-2) 8.0 ng/mL (0-6.6) H* 08/26/20 18:36 Troponin I 0.049 ng/mL (< 0.028) H 08/27/20 04:20 - Assessment/Plan Assessment/Plan: 1.CMY. Severe decrease in AM. Plan for cardiac cath in AM to rule out severe CAD. Procedure and risks explained to the pt. 2.CHF: symptoms improved. Denies SOB. Ambulating in the halls. On Milrinone. 3.Tobacco abuse: advised to stop. 4.Illicit drug use: may be the basis of the CMY. 5.Abn. Troponin: may be due to demand ischemia or underlying CAD, cath tomorrow. 6.Chronic lung changes, consider chronic infectious dz. Dr. Rockwell consulted.
[2020-08-29] MEDS ORDERED: Communication Order-Pharmacy FS SCH (19:45)
[2020-08-29] MEDS: Milrinone Lactate/D5W 20 MG in Premix Bag 1 BAG IVPB SCH (21:16)
[2020-08-29] MEDS: cefTRIAXone\\ROCEPHIN 1 GM in Sodium Chloride 0.9% 100 ML IVPB SCH (21:17)
--- NOTE | 2020-08-29 22:12 | CON ---
DATE OF CONSULTATION: 08/29/2020 REASON FOR CONSULTATION: Cardiomyopathy and history of previously treated mycobacterium avium complex lung infection. 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 Vasques about 8 to 10 years ago. He interrupted the treatment before the planned end date of therapy, approximately around 8 months of treatment and he never followed up for that since, and he developed worsening dyspnea for the past few weeks and saw his PCP and after trying a few inhaled medications, he ended up coming to the emergency room was admitted and found to have EF of 15%. He is in the process of being worked up for his cardiomyopathy. Right now, he has some headaches intermittently. No visual symptoms, sore throat, odynophagia, or dysphagia. No odynophagia. Sometimes, he has chest pain in the left anterior chest area when he takes a deep breath, but not usually. He has no sputum production for many years now and no hemoptysis. Still smoking 2 packs of cigarettes per day. No abdominal pain or diarrhea. No genitourinary symptoms. No edema. He has a history of some pericardial process in 1998 with effusion, hypertension, short-lived emphysema, Mycobacterium avium complex infection, treated for 8 months with triple drug combination. He saw Dr. Vasques for 3 or 4 times, interrupted his treatment prematurely. He has not followed for that diagnosis since. SOCIAL HISTORY: He lives in [place]. Smokes marijuana intermittently. Smokes two packs of cigarettes per day. Used cocaine many years ago by the inhaled route, but never did intravenous drugs and drinks daily. He works in [employer] in [place] for a [employer]. ALLERGIES: PENICILLIN AND SULFA DRUGS. MEDICATIONS: He is only taking Claritin-D. PHYSICAL EXAMINATION: VITAL SIGNS: He has been afebrile. Blood pressure 109/81, pulse 88, respirations 16, and O2 saturation 98%. SKIN: Peripheral IV access. He is voiding in the toilet urinal. No lymphadenopathy. Has no edema. HEENT: Ocular movements conjugate. Oral cavity with numerous missing teeth. Remainder ones with marked decay and gum disease. Oral mucosa otherwise normal. NECK: Supple. No jugular venous distention. LUNGS: With no obvious crackles or wheezing. HEART: S1 and S2. Very faint systolic murmur at the apex. No S3. ABDOMEN: Soft, not distended or tender. No ascites. No bladder distention. No organomegaly. No joint inflammatory activity. EXTREMITIES: No edema. Pulses 1+ in dorsalis pedis. Plantar responses are flexor. Moves all extremities equally. LABORATORY DATA: Syphilis, hepatitis serology, HIV, and SARS-CoV PCR all nonreactive. White cell count is 9.2, hemoglobin 14, MCV 97, platelets 248 with 72% neutrophils. Sodium 133, creatinine 0.92. AST 62, ALT 67. Troponin 0.039. BNP was 2300. Albumin 4.0, globulin 2.7, toxic screen cocaine metabolites. Chest CT showed a cavitary lesion with thickened perry in the left upper lobe, cavitation of left lung apex, cardiomegaly, and dilated left ventricle and the severe centrilobular and paraseptal emphysema. Abdomen ultrasound, nothing remarkable. There is a pathology report from October 2012, which showed no malignancy. ASSESSMENT: 1. History of Mycobacterium avium complex infection, treated for 8 to 10 years ago. The patient interrupted treatment prematurely and has not had any followup since does not have any symptoms right now other than the ones related to his heart failure, specifically has no sputum production, hemoptysis, or cough. 2. Cardiomyopathy, unclear etiology at this moment. The patient to undergo cardiac catheterization followed by other interventions to identify if it is ischemic or not. DISCUSSION: Once the coronary angio clarifies if cardiomyopathy it is ischemic or not, then further testing might be required including the possibility of post-infectious cardiomyopathy including viral and parasitic. Trypanosoma cruzi has autoctone transmission in [place] and certain areas and that is within the realm of possibilities. Mycobacterium avium complex has not been reported as an agent causing direct myocarditis other than in animals. I have not been able to find any single report of direct myocarditis caused by Mycobacterium avium complex infection. Other cause of infectious myocarditis could have left the patient with dilated cardiomyopathy including adenovirus, coxsackie, and herpes virus group type of viruses, various other bacterial pathogens, those are appear to be less likely. In terms of working up his mycobacterial infection, the next step would be to obtain sputum for cultures. He is not spontaneously producing any, so he would have to have a respiratory therapist to administer hypertonic saline to stimulate cough and submit samples for AFB culture. Since he did take 8 months of treatment, it is conceivable that he could have eradicated infection. Job ID: [id number] JOHANNE
[2020-08-30 04:29] LABS: #Basophils 0.1 thou/uL (0.0-0.2); #Eosinphils 0.4 thou/uL (0.0-0.7); #Lymphocytes 1.8 thou/uL (1.20-3.40); #Monocytes 0.7 thou/uL (0.11-0.59); %Basophils 1.5 % (0.0-1.0); %Eosinophils 6.2 % (0.0-10.0); %Lymphocytes 25.2 % (21.0-51.0); %Monocytes 9.8 % (0.0-10.0); %Neutrophils 57.3 % (42.0-75.0); Hemoglobin 15.3 g/dL (14.0-18.0); Mean Corpuscular HGB CONC 35.5 g/dL (32.0-36.0); Mean Corpuscular Hemoglobin 33.9 pg (27.0-31.0); Mean Corpuscular Volume 95.5 fL (78.0-98.0); Mean Platelet Volume 7.5 fL (7.4-10.4); Platelet Count 283 thou/uL (130-400); RBC Distribution Width 12.3 % (11.5-14.5); Red Blood Cell (RBC) Count 4.51 mill/uL (4.70-6.10)
[2020-08-30 05:01] LABS: ALT (SGPT) 67 U/L (8-55); AST (SGOT) 25 U/L (5-34); Albumin 3.3 g/dL (3.5-5.0); Alkaline Phosphatase 70 U/L (40-110); Anion Gap 11 mmol/L (10-20); BUN (Urea Nitrogen) 14 mg/dL (8.9-20.6); Bilirubin, Total 0.3 mg/dL (0.2-1.2); Calc. Creatinine Clearance 106 mL/min (70-130); Calcium 8.4 mg/dL (7.8-10.44); Carbon Dioxide 22 mmol/L (22-29); Chloride 106 mmol/L (98-107); Estimated GFR-MDRD Greater than 90; Globulin 2.4 g/dL (2.4-3.5); Glucose 95 mg/dL (70-105); Potassium 3.8 mmol/L (3.5-5.1); Protein, Total 5.7 g/dL (6.0-8.3); Sodium 135 mmol/L (136-145)
[2020-08-30] MEDS: Carvedilol 3.125 MG TAB PO SCH ×2 (05:46→16:57)
[2020-08-30] MEDS: Famotidine 20 MG TAB PO SCH ×2 (05:46→21:16)
[2020-08-30] MEDS: Aspirin 81 mg Enteric Coated Tablet PO SCH (05:46)
[2020-08-30] MEDS: Sodium Chloride 1 GM TAB PO SCH (05:46)
--- NOTE | 2020-08-30 06:23 | PRG ---
DATE OF SERVICE: 08/29/2020 SUBJECTIVE: Mr. Zendejas had a good day. With starting milrinone, also increasing the dose of milrinone to 0.25 mcg/kg per minute helped him a lot. He said he is no longer short of breath. He is now breathing easy. Before milrinone, he felt very short of breath and tight-chested. He also noticed his energy level has increased with milrinone. He is now able to walk around the hospital and he has not felt this good in a long time. Furthermore, this is the first time in many days he actually slept overnight. So, he is feeling much better. However, he complains that he feels like slowly coming back of allergies, so he made a request for Claritin. He also said he has been taking Claritin-D for a long time for about a year or two. He said that taking Claritin by itself, it did not provide relief, it had to be Claritin-D. REVIEW OF SYSTEMS: GENERAL: There is no fever, chills, or productive cough. HEENT: There is no change in vision, hearing, or swallowing. PULMONARY: Please see HPI. CARDIAC: There is no palpitation, chest pain, or syncope. GI: There is no nausea, vomiting, or diarrhea. : He is able to urinate on his own. MUSCULOSKELETAL: He is not complaining of muscle or joint pains. INTEGUMENT: There is no new skin breakdown. NEUROLOGIC: There are no new focal deficits or weaknesses. MEDICATIONS: His medication list includes; 1. Aspirin 81 mg daily. 2. Carvedilol 3.125 mg b.i.d. 3. Ceftriaxone 1 g daily. 4. Enoxaparin 60 mg SC twice a day. 5. Famotidine (Pepcid) 20 mg b.i.d. 6. Milrinone currently at 0.25 mcg/kg/minute. 7. Nicotine patch, right now is 21 mg daily. 8. Nystatin swish and swallow 500,000 units. 9. Sacubitril/valsartan currently at 24/ half tablet twice a day. Telemetry was reviewed. The patient is in sinus rhythm. Sometimes sinus tachycardia. PHYSICAL EXAMINATION: VITAL SIGNS: Latest vitals that were taken with a heart rate 88, blood pressure 101/73. GENERAL: I was able to lay the patient down flat. He is actually comfortable lying flat. He is not feeling shortness of breath while lying flat. This is an improvement. HEENT: Shows EOMI. Oropharynx has moist mucosa, but he has poor dentition. NECK: His JVP is approximately 7 or 8 cm. LUNGS: There is good air movement bilaterally and clear to auscultation bilaterally. CARDIAC: Regular rate and rhythm with normal S1 and S2. There is 2/6 holosystolic murmur at the apex with radiation to the left axilla. His PMI is severely inferiorly and laterally displaced, indicating extremely enlarged heart. ABDOMEN: Soft, nontender. Positive bowel sounds. EXTREMITIES: Lower extremities are without edema. IMAGING STUDIES: CT scan was done yesterday. CT scan showed there are of lung cavities especially left upper lobe and some in the right upper lobe, consistent with mycobacterium avium intracellulare. There are also infiltrates in the lungs. LABORATORY DATA: His current laboratory values are white cell blood count 8.1, hemoglobin 45, platelets 273. His chemistry showed sodium 135, potassium 3.9, chloride 105, bicarb 21, BUN 16, creatinine 0.81. His AST is 48, which is decreased from yesterday. ALT is 99, which is decreased from yesterday. ASSESSMENT: This is a 45-year-old male, has improved on milrinone. He likely to reside in [place] Heart Association stage C/stage D, [place] Heart Association class 3B heart failure with reduced ejection fraction. It is a biventricular failure. Increasing the milrinone dose relieving the symptom and also decreasing his liver enzymes suggest that he has significant low cardiac output. It being the first admission for heart failure, he will need a coronary angiogram to see if there is significant stenosis. If there is significant coronary artery disease with critical stenosis, then revascularization can help this patient. Thus, it will be very reasonable and ideal for him to get a coronary angiogram as soon as possible. We will also need to titrate up carvedilol. For now, we need to hold off on Entresto half dose. The reason why is we do not want to drop the blood pressure too much and then we also want to make sure that he is ready for his catheterization. The overall plan if there is normal coronary, it will be use the milrinone to provide enough blood flow to clear the dye and after that, the milrinone can be titrated off over 24 hours. At the end of titrating off milrinone, then you can restart Entresto. The target goal for him will be Entresto 24/26 twice a day. If he only tolerates half tablet, then a half tablet will work too. Please see the following for my recommendations. RECOMMENDATIONS: 1. Proceed with a coronary angiogram tomorrow. 2. Hold Entresto tonight and tomorrow, we will start this after the coronary angiogram. If needed he can tolerate a low dose of IV fluids to flush out the dye. This can be normal saline 50 mL/hour for 10 hours. 3. The main plan will be use milrinone to maintain his cardiac output and clear out his liver congestion first. Then, the milrinone can be titrated off over one day. You would decrease it down to 0.125 mcg/kg/min at night and then next morning, then you can turn it off. Please do restart Entresto half dose twice a day the day after catheterization and also at the end of the milrinone titration off. Possible discharge medications will consist of carvedilol 6.25 mg twice a day and Entresto 24/26 tablet at least half tablet twice a day, if possible full tablet twice a day. 4. We can use digoxin 0.125 mg daily to help with some slight improvement in contractility of the heart as an outpatient. He may need some chronic low-dose diuretics, but this is to be seen. It has been a pleasure taking care of Mr. Zendejas. If any questions, please give me a call. The total visitation time was 30 minutes. This includes personally performing history and physical, reviewing data, coordinating care, meeting with the family does include Ms. Zendejas, his mom and his daughter and also direct patient interaction. Job ID: [id number] [facility]Rand
[2020-08-30] MEDS ORDERED: Verapamil 5 MG/2 ML VIAL ONE (06:45)
[2020-08-30] MEDS ORDERED: Heparin 10,000 UNITS/ 10 ML VIAL ONE (06:45)
--- NOTE | 2020-08-30 06:45 | PDOC.FM ---
- Subjective Subjective: Mr. Zendejas just returned from his cath this AM. He denies SOB and asks if he can go outside and walk around. - Objective Vital Signs & Weight: Vital Signs (12 hours) Temp Pulse Resp BP BP BP Pulse Ox 08/30/20 04:00 98.5 F 86 13 109/80 109/80 93 L 08/30/20 00:00 97 88/56 L 88/56 L 08/29/20 20:00 97.1 F L 115 H 18 111/81 111/81 98 Weight Admit Weight 62.006 kg Weight 59.421 kg I&O: 08/28/20 08/29/20 08/30/20 06:59 06:59 06:59 Intake Total 1697.6 2290 2960 Output Total 3250 2700 2600 Balance -1552.4 -410 360 Result Diagrams: 08/30/20 04:07 08/30/20 04:07 EKG Reviewed by me: Yes (tele: secondary AVB, 7 beats Vtach) Phys Exam - Physical Examination Constitutional: NAD HEENT: moist MMs, sclera anicteric Neck: full ROM Respiratory: no wheezing, clear to auscultation bilateral Cardiovascular: RRR, no significant murmur Gastrointestinal: soft, non-tender, no distention, positive bowel sounds Musculoskeletal: no edema, pulses present Neurological: moves all 4 limbs Psychiatric: normal affect, A&O x 3 Dx/Plan - Plan Plan: Patient is a 45 y/o male with a 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 1. New-Onset Biventricular HF -Patient complains of prolonged SOB, orthopnea and HUTCHINSON and endorses a remote Hx of Pericardial Effusions - cause unknown -BNP: 2317.5, s/p Lasix x1 in the ED -Echo: prethrombus in IVC, increase LV, EF <15% -Consult: Ajith () - Cath revealed 50% LAD stenosis -Consult: Samy - Keep SBP >90. Continue milrinone drip today and tomorrow, then titrate milrinone drip down (.0125 for 12 hrs). Hold entresto until milrinone drip is discontinued then start back at half dose and increase if BP is maintained after 4 doses. Will discharge home on entresto and 5.25 coreg -Hemachromatosis suspicion: iron low, TIBC low, ferritin increased at 373.62, transferrin saturation 24%. Seems unlikely. -Abdominal ultrasound normal -Called [facility] on two occasions for potential transfer and was informed no beds were available. 2. Dilated Cardiomyopathy -Suspicion for infectious tachycardia -HIV, RPR, Hep B were negative -HIV RNA pending, TB pending, fungal studies pending -Consult: Moiz: sputum cx for rule out continued MAC infection. Consider Chagas disease. 3. Multi-Lobar Pneumonia -SIRS: Tachycardic, Tachypneic -Patient has a Hx of MAC PNA w/o Immunosuppression - chronic opacities in left lung -CXR: Multi-lobar opacities -s/p 1L Azithromycin and Ceftriaxone in the ED, discontinue azithromycin, contin ue ceftriaxone -WBCs: 9.2, Procal: 0.06, CRP: 0.89, Lactic Acid: 1.2 -BCx: neg -UCx: neg -CT chest: chronic MAC, cardiomegaly, emphysema 4. Indeterminate Troponins -Likely 2/2 to NSTEMI, Type 2 -EKG: L Anterior Fascicular Block, LVH with borderline Prolonged QT Interval -Trop: 0.039 > 0.049 > 0.056 > 0.049 -CK-MB: 8 -BNP: 2317.5 5. EtOH Abuse -Patient endorses daily EtOH Abuse - last EtOH unknown -ASE Protocol -Lorazepam 2 mg PO Q4H PRN 6. Oral Candidiasis -White exudates noted on palate - easily scraped off with tongue depressor -Increased suspicion for immunosuppression -HIV: negative, RPR: negative -Nystatin SSW 7. Tobacco Use -Nicotine Patch 21 mg Daily 8. Drug Abuse -Patient endorses frequent MJ Abuse -UDS: Cocaine, MJ Code: Full PCP: CC Diet: HH w/ Low Sodium Activity: Ad zhang VTE PPx: None - SAUL Score: 2 Dispo: Discharge pending titration off milrinone and adequate control on PO medications
[2020-08-30] MEDS ORDERED: Nitroglycerin 100MG/250ML BOT 250 ML ONE (06:46)
[2020-08-30] MEDS ORDERED: Sodium Chloride 0.9% 200 ML IV PRN (08:02)
[2020-08-30] MEDS ORDERED: Acetaminophen/Codeine 30-300mg Tablet PO PRN ×2 (08:02)
[2020-08-30] MEDS ORDERED: Nitroglycerin 0.4 MG TAB (25 Tab Bottle) SL PRN (08:02)
[2020-08-30] MEDS ORDERED: Iopamidol 370 76% 100 ML VIAL ONE (08:59)
[2020-08-30] MEDS: Nicotine 21 MG PATCH TD SCH (10:24)
[2020-08-30] MEDS: Nystatin 500,000 UNITS/5 ML UDCUP SSW SCH ×4 (10:24→21:16)
--- NOTE | 2020-08-30 14:07 | PRG ---
DATE OF SERVICE: 08/30/2020 Mr. Zendejas was admitted with new-onset heart failure. He just returned from cath a few hours ago and was found to have one coronary artery with 50% occlusion not likely to be the cause of his heart failure. Dr. Rockwell is also on board as we further investigate what were the possible causes of Mr. Zendejas's heart failure. He states that he used drugs about 10 years ago, but none recently. However, his recent urine drug screen is positive for cocaine and marijuana. I believe there may be an element of drug toxicity contributing to his cardiomyopathy. In the event, it is not due to coronary artery disease and he is reassured about this. Job ID: [id number]
[2020-08-30] MEDS: Milrinone Lactate/D5W 20 MG in Premix Bag 1 BAG IVPB SCH (18:36)
[2020-08-30] MEDS: cefTRIAXone\\ROCEPHIN 1 GM in Sodium Chloride 0.9% 100 ML IVPB SCH (21:16)
[2020-08-31 04:42] LABS: #Basophils 0.1 thou/uL (0.0-0.2); #Eosinphils 0.4 thou/uL (0.0-0.7); #Lymphocytes 1.5 thou/uL (1.20-3.40); #Monocytes 0.7 thou/uL (0.11-0.59); #Neutrophils 3.2 thou/uL (1.40-6.50); %Basophils 1.4 % (0.0-1.0); %Eosinophils 7.1 % (0.0-10.0); %Lymphocytes 25.2 % (21.0-51.0); %Monocytes 11.6 % (0.0-10.0); %Neutrophils 54.6 % (42.0-75.0); Hemoglobin 14.2 g/dL (14.0-18.0); Mean Corpuscular HGB CONC 34.3 g/dL (32.0-36.0); Mean Corpuscular Hemoglobin 33.3 pg (27.0-31.0); Mean Corpuscular Volume 97.1 fL (78.0-98.0); Mean Platelet Volume 7.5 fL (7.4-10.4); Platelet Count 283 thou/uL (130-400); RBC Distribution Width 12.3 % (11.5-14.5); Red Blood Cell (RBC) Count 4.28 mill/uL (4.70-6.10); White Blood Cell (WBC) Count 5.8 thou/uL (4.8-10.8)
[2020-08-31 05:25] LABS: ALT (SGPT) 51 U/L (8-55); AST (SGOT) 22 U/L (5-34); Albumin 3.3 g/dL (3.5-5.0); Alkaline Phosphatase 64 U/L (40-110); Anion Gap 10 mmol/L (10-20); BUN (Urea Nitrogen) 14 mg/dL (8.9-20.6); Bilirubin, Total 0.3 mg/dL (0.2-1.2); Calc. Creatinine Clearance 92 mL/min (70-130); Calcium 8.3 mg/dL (7.8-10.44); Carbon Dioxide 23 mmol/L (22-29); Chloride 107 mmol/L (98-107); Estimated GFR-MDRD Greater than 90; Globulin 2.3 g/dL (2.4-3.5); Glucose 119 mg/dL (70-105); Protein, Total 5.6 g/dL (6.0-8.3); Sodium 136 mmol/L (136-145)
--- NOTE | 2020-08-31 06:30 | PDOC.FM ---
- Subjective Subjective: Mr. Sanchez is feeling restless staying in bed all day and wishes to walk around the hospital and outside if possible. Told patient and patient's nurse that would be okay. - Objective Vital Signs & Weight: Vital Signs (12 hours) Temp Pulse Resp BP BP BP BP 08/31/20 04:00 97.9 F 106 H 16 110/69 08/31/20 00:00 131/77 131/77 08/30/20 20:00 98.3 F 90 16 103/75 103/75 Pulse Ox 08/31/20 04:00 96 08/31/20 00:00 08/30/20 20:00 96 Weight Admit Weight 62.006 kg Weight 59.421 kg I&O: 08/29/20 08/30/20 08/31/20 06:59 06:59 06:59 Intake Total 2290 2960 3050 Output Total 2700 2600 1750 Balance -179 065 2115 Result Diagrams: 08/31/20 04:15 08/31/20 04:15 EKG Reviewed by me: Yes (ST, SR, PAT) Radiology: cath: 50% stenosis of LAD Phys Exam - Physical Examination Constitutional: NAD HEENT: moist MMs, sclera anicteric Neck: no nodes, supple, full ROM Respiratory: no wheezing, clear to auscultation bilateral Cardiovascular: RRR, no significant murmur Gastrointestinal: soft, non-tender, no distention, positive bowel sounds Musculoskeletal: no edema, pulses present Neurological: moves all 4 limbs Psychiatric: normal affect, A&O x 3 Dx/Plan - Plan Plan: Patient is a 45 y/o male with a 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 1. New-Onset Biventricular HF -Patient complains of prolonged SOB, orthopnea and HUTCHINSON and endorses a remote Hx of Pericardial Effusions - cause unknown -BNP: 2317.5, s/p Lasix x1 in the ED -Echo: prethrombus in IVC, increase LV, EF <15% -Consult: Ajith () - Cath revealed 50% LAD stenosis -Consult: Samy - Keep SBP >90. Continue milrinone today on 0.25mcg, then titrate milrinone drip down (.125 for 12 hrs). Hold entresto until milrinone drip is discontinued then start back at half dose and increase if BP is maintained after 4 doses. Will discharge home on entresto and 6.25 coreg -Hemachromatosis suspicion: iron low, TIBC low, ferritin increased at 373.62, transferrin saturation 24%. Seems unlikely. -Abdominal ultrasound normal -Called [facility] on two occasions for potential transfer and was informed no be ds were available. 2. Dilated Cardiomyopathy -Suspicion for infectious tachycardia -HIV, RPR, Hep B were negative -HIV RNA pending, TB pending, fungal studies pending -Consult: Moiz: sputum cx for rule out continued MAC infection. Consider Chagas disease. 3. Multi-Lobar Pneumonia -SIRS: Tachycardic, Tachypneic -Patient has a Hx of MAC PNA w/o Immunosuppression - chronic opacities in left lung -CXR: Multi-lobar opacities -s/p 1L Azithromycin and Ceftriaxone in the ED, discontinue azithromycin, continue ceftriaxone -WBCs: 9.2, Procal: 0.06, CRP: 0.89, Lactic Acid: 1.2 -BCx: neg -UCx: neg -CT chest: chronic MAC, cardiomegaly, emphysema 4. Indeterminate Troponins -Likely 2/2 to NSTEMI, Type 2 -EKG: L Anterior Fascicular Block, LVH with borderline Prolonged QT Interval -Trop: 0.039 > 0.049 > 0.056 > 0.049 -CK-MB: 8 -BNP: 2317.5 5. EtOH Abuse -Patient endorses daily EtOH Abuse - last EtOH unknown -ASE Protocol -Lorazepam 2 mg PO Q4H PRN 6. Oral Candidiasis -White exudates noted on palate - easily scraped off with tongue depressor -Increased suspicion for immunosuppression -HIV: negative, RPR: negative -Nystatin SSW 7. Tobacco Use -Nicotine Patch 21 mg Daily 8. Drug Abuse -Patient endorses frequent MJ Abuse -UDS: Cocaine, MJ Code: Full PCP: CC Diet: HH w/ Low Sodium Activity: Ad zhang VTE PPx: None - SAUL Score: 2 Dispo: Discharge pending titration off milrinone and adequate control on PO medications CATH:RCA 50% stenosis.No stenosis in LAD.md portillo
[2020-08-31] MEDS: Nicotine 21 MG PATCH TD SCH (08:26)
[2020-08-31] MEDS: Nystatin 500,000 UNITS/5 ML UDCUP SSW SCH ×4 (08:26→20:58)
[2020-08-31] MEDS: Aspirin 81 mg Enteric Coated Tablet PO SCH (08:26)
[2020-08-31] MEDS: Famotidine 20 MG TAB PO SCH ×2 (08:26→20:57)
[2020-08-31] MEDS: Carvedilol 3.125 MG TAB PO SCH ×2 (08:26→16:44)
[2020-08-31] MEDS: Sodium Chloride 1 GM TAB PO SCH (08:26)
--- NOTE | 2020-08-31 14:10 | PRG ---
DATE OF SERVICE: 08/31/2020 Mr. Zendejas is sitting in bed, resting comfortably in no distress. 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 I have also reviewed the note of Dr. Peña Garecs and discussed it with her and agree with her assessment and plan. Job ID: [id number]
[2020-08-31] MEDS: Milrinone Lactate/D5W 20 MG in Premix Bag 1 BAG IVPB SCH (16:47)
[2020-08-31] MEDS ORDERED: Milrinone Lactate/D5W 20 MG in Premix Bag 1 BAG IVPB SCH (18:12)
[2020-08-31 19:13] LABS: HIV-1 Quantitative, RNA PCR <20 copies/mL (.)
[2020-08-31 19:38] LABS: HBV as IU/mL HBV DNA not detected IU/mL (.)
[2020-08-31] MEDS: cefTRIAXone\\ROCEPHIN 1 GM in Sodium Chloride 0.9% 100 ML IVPB SCH (20:59)
[2020-09-01 04:52] LABS: #Basophils 0.1 thou/uL (0.0-0.2); #Eosinphils 0.4 thou/uL (0.0-0.7); #Lymphocytes 1.5 thou/uL (1.20-3.40); #Monocytes 0.7 thou/uL (0.11-0.59); #Neutrophils 4.5 thou/uL (1.40-6.50); %Basophils 1.2 % (0.0-1.0); %Eosinophils 5.9 % (0.0-10.0); %Lymphocytes 21.3 % (21.0-51.0); %Monocytes 9.9 % (0.0-10.0); %Neutrophils 61.6 % (42.0-75.0); Hemoglobin 14.6 g/dL (14.0-18.0); Mean Corpuscular HGB CONC 35.4 g/dL (32.0-36.0); Mean Corpuscular Hemoglobin 34.4 pg (27.0-31.0); Mean Corpuscular Volume 97.1 fL (78.0-98.0); Mean Platelet Volume 7.5 fL (7.4-10.4); Platelet Count 277 thou/uL (130-400); RBC Distribution Width 12.5 % (11.5-14.5); Red Blood Cell (RBC) Count 4.24 mill/uL (4.70-6.10); White Blood Cell (WBC) Count 7.2 thou/uL (4.8-10.8)
[2020-09-01 05:16] LABS: ALT (SGPT) 53 U/L (8-55); AST (SGOT) 27 U/L (5-34); Albumin 3.4 g/dL (3.5-5.0); Alkaline Phosphatase 65 U/L (40-110); Anion Gap 10 mmol/L (10-20); BUN (Urea Nitrogen) 14 mg/dL (8.9-20.6); Bilirubin, Total 0.3 mg/dL (0.2-1.2); Calc. Creatinine Clearance 105 mL/min (70-130); Calcium 8.8 mg/dL (7.8-10.44); Carbon Dioxide 24 mmol/L (22-29); Chloride 106 mmol/L (98-107); Estimated GFR-MDRD Greater than 90; Globulin 2.4 g/dL (2.4-3.5); Glucose 97 mg/dL (70-105); Protein, Total 5.8 g/dL (6.0-8.3); Sodium 136 mmol/L (136-145)
--- NOTE | 2020-09-01 06:43 | PDOC.FM ---
- Subjective Subjective: Mr. Sanchez is doing well this morning with no complaints. He is anxious for discharge and to leave the hospital. Said he walked around outside several times yesterday. - Objective Vital Signs & Weight: Vital Signs (12 hours) Temp Pulse Resp BP BP BP Pulse Ox 09/01/20 04:00 97.7 F 92 18 101/74 98 09/01/20 00:00 98 16 116/76 116/76 08/31/20 20:00 98 08/31/20 19:30 97.2 F L 97 18 113/79 113/79 98 Weight Admit Weight 62.006 kg Weight 60.691 kg I&O: 08/30/20 08/31/20 09/01/20 06:59 06:59 06:59 Intake Total 2960 3050 2100 Output Total 2600 1750 2850 Balance 360 1300 -750 Result Diagrams: 09/01/20 04:17 09/01/20 04:17 EKG Reviewed by me: Yes (tele: SR) Phys Exam - Physical Examination Constitutional: NAD HEENT: moist MMs, sclera anicteric Neck: no nodes, supple, full ROM Respiratory: no wheezing, clear to auscultation bilateral Cardiovascular: RRR, no significant murmur Gastrointestinal: soft, non-tender, no distention, positive bowel sounds Musculoskeletal: no edema, pulses present Neurological: non-focal, moves all 4 limbs Psychiatric: normal affect, A&O x 3 Dx/Plan - Plan Plan: Patient is a 45 y/o male with a 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 1. New-Onset Biventricular HF -Patient complains of prolonged SOB, orthopnea and HUTCHINSON and endorses a remote Hx of Pericardial Effusions - cause unknown -BNP: 2317.5, s/p Lasix x1 in the ED -Echo: prethrombus in IVC, increase LV, EF <15% -Consult: Ajith () - Cath revealed 50% RCA stenosis -Consult: Samy - Keep SBP >90. Milrinone ran on 0.125mcg last night and was discontinued this morning. Half dose entresto started evening of 08/31. Will continue half dose for 4 doses and then increase to full dose if BP is maintained. Will discharge home on entresto and 6.25 coreg -Hemachromatosis suspicion: iron low, TIBC low, ferritin increased at 373.62, transferrin saturation 24%. Seems unlikely. -Abdominal ultrasound normal -Called [facility] on two occasions for potential transfer and was informed no beds were available. 2. Dilated Cardiomyopathy -Suspicion for infectious tachycardia -HIV RNA, RPR, Hep B were negative -TB pending, fungal studies pending -Consult: Moiz: sputum cx for rule out continued MAC infection. Consider Chagas disease. 3. Multi-Lobar Pneumonia -SIRS: Tachycardic, Tachypneic -Patient has a Hx of MAC PNA w/o Immunosuppression - chronic opacities in left lung -CXR: Multi-lobar opacities -s/p 1L Azithromycin and Ceftriaxone in the ED, discontinue azithromycin, continue ceftriaxone -WBCs: 9.2, Procal: 0.06, CRP: 0.89, Lactic Acid: 1.2 -BCx: neg -UCx: neg -CT chest: chronic MAC, cardiomegaly, emphysema 4. Indeterminate Troponins -Likely 2/2 to NSTEMI, Type 2 -EKG: L Anterior Fascicular Block, LVH with borderline Prolonged QT Interval -Trop: 0.039 > 0.049 > 0.056 > 0.049 -CK-MB: 8 -BNP: 2317.5 5. EtOH Abuse -Patient endorses daily EtOH Abuse - last EtOH unknown -ASE Protocol -Lorazepam 2 mg PO Q4H PRN 6. Oral Candidiasis -White exudates noted on palate - easily scraped off with tongue depressor -Increased suspicion for immunosuppression -HIV: negative, RPR: negative -Nystatin SSW 7. Tobacco Use -Nicotine Patch 21 mg Daily 8. Drug Abuse -Patient endorses frequent MJ Abuse -UDS: Cocaine, MJ Code: Full PCP: CC Diet: HH w/ Low Sodium Activity: Ad zhang VTE PPx: None - SAUL Score: 2 Dispo: Discharge pending establishment of PO medications. Will follow Cardiology recs.
[2020-09-01] MEDS: Aspirin 81 mg Enteric Coated Tablet PO SCH (09:00)
[2020-09-01] MEDS: Sodium Chloride 1 GM TAB PO SCH (09:00)
[2020-09-01] MEDS: Carvedilol 3.125 MG TAB PO SCH ×2 (09:00→17:30)
[2020-09-01] MEDS: Nystatin 500,000 UNITS/5 ML UDCUP SSW SCH ×4 (09:00→21:03)
[2020-09-01] MEDS: Nicotine 21 MG PATCH TD SCH (09:00)
[2020-09-01] MEDS: Famotidine 20 MG TAB PO SCH ×2 (09:00→21:03)
--- NOTE | 2020-09-01 14:08 | PRG ---
DATE OF SERVICE: 09/01/2020 I have examined the patient and discussed his care with Dr. Peña Garces. I have also read her note and agree with her assessment and plan. Mr. Zendejas is currently undergoing gradual titration of his Entresto. When full dosages are reached by late tomorrow, we can likely discharge him shortly thereafter. He does admit feeling a little bit more short of breath after was discontinued. We told him this is to be expected until the Entresto can start to have its effects. We appreciate the input from the Heart Failure Service and we will continue to follow their instructions. Job ID: [id number]
[2020-09-01 14:24] VITALS: BMI 19.2
[2020-09-01 18:36] LABS: QuantiFERON-TB Gold Plus Negative (Negative)
[2020-09-02 04:48] LABS: #Basophils 0.1 thou/uL (0.0-0.2); #Eosinphils 0.5 thou/uL (0.0-0.7); #Lymphocytes 1.8 thou/uL (1.20-3.40); #Monocytes 0.9 thou/uL (0.11-0.59); %Basophils 1.1 % (0.0-1.0); %Eosinophils 5.8 % (0.0-10.0); %Lymphocytes 22.2 % (21.0-51.0); %Monocytes 10.3 % (0.0-10.0); %Neutrophils 60.6 % (42.0-75.0); Hemoglobin 14.7 g/dL (14.0-18.0); Mean Corpuscular HGB CONC 35.2 g/dL (32.0-36.0); Mean Corpuscular Hemoglobin 33.9 pg (27.0-31.0); Mean Corpuscular Volume 96.4 fL (78.0-98.0); Mean Platelet Volume 7.5 fL (7.4-10.4); Platelet Count 280 thou/uL (130-400); RBC Distribution Width 12.4 % (11.5-14.5); Red Blood Cell (RBC) Count 4.34 mill/uL (4.70-6.10); White Blood Cell (WBC) Count 8.2 thou/uL (4.8-10.8)
[2020-09-02 05:11] LABS: ALT (SGPT) 49 U/L (8-55); AST (SGOT) 24 U/L (5-34); Albumin 3.4 g/dL (3.5-5.0); Alkaline Phosphatase 65 U/L (40-110); Anion Gap 12 mmol/L (10-20); BUN (Urea Nitrogen) 11 mg/dL (8.9-20.6); Bilirubin, Total 0.3 mg/dL (0.2-1.2); Calc. Creatinine Clearance 100 mL/min (70-130); Calcium 8.6 mg/dL (7.8-10.44); Carbon Dioxide 22 mmol/L (22-29); Chloride 107 mmol/L (98-107); Estimated GFR-MDRD Greater than 90; Globulin 2.5 g/dL (2.4-3.5); Glucose 98 mg/dL (70-105); Potassium 3.8 mmol/L (3.5-5.1); Protein, Total 5.9 g/dL (6.0-8.3); Sodium 137 mmol/L (136-145)
--- NOTE | 2020-09-02 06:26 | PDOC.FM ---
- Subjective Subjective: Mr. Sanchez reports increasing SOB when sitting still since coming off IV milrinone but says it improves when he gets up and moves around. He says the life vest people are supposed to come at 2pm today. He is anxious to go home. - Objective Vital Signs & Weight: Vital Signs (12 hours) Temp Pulse Resp BP BP Pulse Ox 09/02/20 03:45 98.3 F 91 18 119/77 97 09/02/20 00:00 88 16 09/01/20 20:00 98.1 F 97 20 110/75 98 Weight Admit Weight 62.006 kg Weight 61.326 kg I&O: 08/31/20 09/01/20 09/02/20 06:59 06:59 06:59 Intake Total 3050 2100 2160 Output Total 1750 2850 875 Balance 1300 -750 1285 Result Diagrams: 09/02/20 04:17 09/02/20 04:17 EKG Reviewed by me: Yes (tele: SR) Phys Exam - Physical Examination Constitutional: NAD HEENT: moist MMs, sclera anicteric Neck: no nodes, supple, full ROM Respiratory: no wheezing, no rales, no rhonchi, clear to auscultation bilateral Cardiovascular: RRR, no significant murmur Gastrointestinal: soft, non-tender, no distention, positive bowel sounds Musculoskeletal: no edema, pulses present Neurological: non-focal, moves all 4 limbs Psychiatric: normal affect, A&O x 3 Dx/Plan - Plan Plan: Patient is a 45 y/o male with a 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 1. New-Onset Biventricular HF -Patient complains of prolonged SOB, orthopnea and HUTCHINSON and endorses a remote Hx of Pericardial Effusions - cause unknown -BNP: 2317.5, s/p Lasix x1 in the ED -Echo: prethrombus in IVC, increase LV, EF <15% -Consult: Ajith () - Cath revealed 50% RCA stenosis -Consult: Samy - Keep SBP >90. On full dose of entresto. Will discharge home on entresto and 6.25 coreg. Fitting and approval for life vest today. CM is working of medication assistance. -Hemachromatosis suspicion: iron low, TIBC low, ferritin increased at 373.62, transferrin saturation 24%. Seems unlikely. -Abdominal ultrasound normal -Called [facility] on two occasions for potential transfer and was informed no beds were available. 2. Dilated Cardiomyopathy -Suspicion for infectious tachycardia -HIV RNA, RPR, Hep B were negative -TB pending, fungal studies pending -Consult: Moiz: sputum cx for rule out continued MAC infection. Consider Chagas disease. 3. Multi-Lobar Pneumonia -SIRS: Tachycardic, Tachypneic -Patient has a Hx of MAC PNA w/o Immunosuppression - chronic opacities in left lung -CXR: Multi-lobar opacities -s/p 1L Azithromycin and Ceftriaxone in the ED, discontinue azithromycin -WBCs: 9.2, Procal: 0.06, CRP: 0.89, Lactic Acid: 1.2 -BCx: neg -UCx: neg -CT chest: chronic MAC, cardiomegaly, emphysema -lung changes appear more chronic in nature rather than acute disease. Discontinued rocephin after 5 days of therapy. 4. Indeterminate Troponins -Likely 2/2 to NSTEMI, Type 2 -EKG: L Anterior Fascicular Block, LVH with borderline Prolonged QT Interval -Trop: 0.039 > 0.049 > 0.056 > 0.049 -CK-MB: 8 -BNP: 2317.5 5. EtOH Abuse -Patient endorses daily EtOH Abuse - last EtOH unknown -ASE Protocol -Lorazepam 2 mg PO Q4H PRN 6. Oral Candidiasis -White exudates noted on palate - easily scraped off with tongue depressor -Increased suspicion for immunosuppression -HIV: negative, RPR: negative -Nystatin SSW 7. Tobacco Use -Nicotine Patch 21 mg Daily 8. Drug Abuse -Patient endorses frequent MJ Abuse -UDS: Cocaine, MJ Code: Full PCP: CC Diet: HH w/ Low Sodium Activity: Ad zhang VTE PPx: None - SAUL Score: 2 Dispo: Discharge pending life vest approval and entresto coverage.
[2020-09-02] MEDS: Nicotine 21 MG PATCH TD SCH (09:05)
[2020-09-02] MEDS: Carvedilol 3.125 MG TAB PO SCH ×2 (09:05→17:14)
[2020-09-02] MEDS: Nystatin 500,000 UNITS/5 ML UDCUP SSW SCH ×3 (09:05→17:14)
[2020-09-02] MEDS: Sodium Chloride 1 GM TAB PO SCH (09:05)
[2020-09-02] MEDS: Aspirin 81 mg Enteric Coated Tablet PO SCH (09:05)
[2020-09-02] MEDS: Famotidine 20 MG TAB PO SCH (09:05)
--- NOTE | 2020-09-02 14:32 | PRG ---
DATE OF SERVICE: 09/02/2020 Mr. Zendejas will get his full dose of Entresto today. He will be seen by the defibrillator people at 2:00, after which he can be discharged. Job ID: [id number]
[2020-09-02 15:58] VITALS: BP 114/87; TEMP 98.6
--- NOTE | 2020-09-04 13:24 | EKG ---
Test Reason : Blood Pressure : / mmHG Vent. Rate : 118 BPM Atrial Rate : 118 BPM P-R Int : 142 ms QRS Dur : 106 ms QT Int : 354 ms P-R-T Axes : 088 -51 117 degrees QTc Int : 496 ms Sinus tachycardia Possible Left atrial enlargement Left anterior fascicular block Left ventricular hypertrophy with repolarization abnormality Abnormal ECG Confirmed by BERTA WHYTE DO ([id number]), newspaper managing editor XAVIER CHRISTENSEN ([id number]) on 09/04/2020 1:24:36 PM Referred By: Confirmed By:BERTA WHYTE DO
== END 2020-09-02 17:40 | disposition home or self-care (01) | DRG 280 ==
LOC: ERS 18:18 → 2NO 08-27 00:05
PROVIDERS: ADMIT Family Medicine; ATTEND Family Medicine
PROC: 4A023N7 Measurement of Cardiac Sampling and Pressure, Left Heart, Percutaneous Approach (ICD-10-PCS; principal; 2020-08-30)
PROC: B2111ZZ Fluoroscopy of Multiple Coronary Arteries using Low Osmolar Contrast (ICD-10-PCS; 2020-08-30)
DX: I50.21 Acute systolic (congestive) heart failure (principal); I21.A1 Myocardial infarction type 2; J18.9 Pneumonia, unspecified organism; B37.0 Candidal stomatitis; E87.1 Hypo-osmolality and hyponatremia; E44.0 Moderate protein-calorie malnutrition; Z68.1 Body mass index [BMI] 19.9 or less, adult; I42.0 Dilated cardiomyopathy; Z20.828 Contact with and (suspected) exposure to other viral communicable diseases; I25.10 Atherosclerotic heart disease of native coronary artery without angina pectoris; F10.10 Alcohol abuse, uncomplicated; J43.9 Emphysema, unspecified; F12.10 Cannabis abuse, uncomplicated; I50.82 Biventricular heart failure; F14.11 Cocaine abuse, in remission; R74.01 Elevation of levels of liver transaminase levels; F17.200 Nicotine dependence, unspecified, uncomplicated; Z88.0 Allergy status to penicillin; Z88.2 Allergy status to sulfonamides; Z98.890 Other specified postprocedural states; Z71.6 Tobacco abuse counseling; Z86.19 Personal history of other infectious and parasitic diseases
CPT/HCPCS: 36415; 71045; 71046; 71260; 80053; 80306; 82553; 82728; 83540; 83550; 83605; 83690; 83880; 84145; 84443; 84484; 85025; 86140; 86480; 86612; 86635; 86698; 86704; 86706; 86780; 86803; 87040; 87086; 87340; 87350; 87389; 87449; 87517; 87536; 89220; 93005; 93010; 93306; 93458; 93975; 96365; 96366; 96367; 96375; 97139; J0456; J0696; J1644; J1650; J1940; J2260; J2405; J3490; Q9967; U0002

== ENCOUNTER 2020-09-04 09:04 | Observation (INO) | payer OTHER, SELFPAY ==
[2020-09-04 12:39] VITALS: BMI 19.3
[2020-09-04] MEDS ORDERED: FLU VACC QS2020-21(6MOS UP)/PF 60 MCG/0.5 ML SYRINGE IM ONE (13:30)
--- NOTE | 2020-09-04 14:48 | PDOC.FPRHP ---
- History of Present Illness Chief Complaint: SOB History of Present Illness: 45 yo M with PMHx of newly diagnosed HFrEF (EF<15%) presents to OSH for SOB. Patient reports that since being discharged on 09/02, he had progressively worsening SOB. It began on the evening of his discharge on 09/02 and was worse when lying down. He ate a fried chicken finger meal the night of dc. He also reports "2 puffs of a joint" of marijuana. denies other drug use. Was recently admitted at [facility] from 08/27-09/02, Cath revealed 50% stenosis of RCA, ECHO with prethrombus in IVC-EF<15%, started on Entresto/Coreg, suspicion at that time for hemochromatosis. ED Course: Presented to OSH, received nitro paste, 40 mg IV Lasix X1 and was transferred to [facility]. - Allergies/Adverse Reactions Allergies Allergy/AdvReac Type Severity Reaction Status Date / Time Penicillins Allergy Verified 08/27/20 00:06 Sulfa (Sulfonamide Allergy Verified 08/27/20 00:07 Antibiotics) - Home Medications Medication Instructions Recorded Confirmed Type Loratadine/Pseudoephedrine 1 each PO DAILY 08/27/20 09/04/20 History [Claritin-D 12 Hour Tablet] Aspirin [Ecotrin Low Strength] 81 mg PO DAILY #30 tab 09/02/20 09/04/20 Rx Carvedilol [Coreg] 6.25 mg PO BID-WM #60 tab 09/02/20 09/04/20 Rx Nitroglycerin [Nitrostat] 0.4 mg SL Q5MIN PRN #15 tab 09/02/20 09/04/20 Rx Sacubitril/Valsartan [Entresto 24 1 tab PO BID #60 tab 09/02/20 09/04/20 Rx mg-26 mg Tablet] - History PMHx:COPD, HFrEF EF <15% per ECHO on 08/27 hx of MAC PNA PSHx: hernia s/p repair FHx: lung cancer in dad, no DM or thyroid disease Social: tob use, EtOH abuse, marijuana use, hx of cocaine use - Review of Systems Eyes: denies: vision changes ENT: denies: nasal congestion, rhinorrhea Respiratory: reports: shortness of breath, exercise intolerance. denies: cough, congestion Cardiovascular: denies: chest pain, palpitation, edema Gastrointestinal: denies: nausea, vomiting Genitourinary: denies: incontinence, dysuria Skin: denies: rashes, lesions - Vital signs BP: 110/87 HR: 94 RR: 16 Tmax: 97.4 Pox: 98% on RA Wt: 61 kg - Physical Exam Constitutional: NAD, awake, alert and oriented HEENT: normocephalic and atraumatic, EOMI Heart: RRR, normal S1/S2, no murmurs/rubs/gallops Lungs: CTAB, no respiratory distress, good air movement Abdomen: soft, non-tender, bowel sounds present Musculoskeletal: normal structure, normal tone, ROM grossly normal Psychiatric: normal mood and affect, intact recent and remote memory FMR H&P: Results - Labs Lab results: BNP 4300, Trop 0.064 FMR H&P: A/P - Problem List (1) Marijuana abuse Current Visit: No Status: Acute Code(s): F12.10 - CANNABIS ABUSE, UNCOMPLICATED (2) New onset of congestive heart failure Current Visit: No Status: Acute Code(s): I50.9 - HEART FAILURE, UNSPECIFIED - Plan Acute CHF exacerbation - Given new diagnosis, history, and resolution of sx w/ lasix, likely fluid overload 2/2 CHF - Continue home medications - Start 20 mg Lasix QD - Discuss impact of diet and other contributing factors to exacerbation Marijuana abuse - UDS - Discuss impact on disease Indeterminate troponin - likely 2/2 demand ischemia given no history of chest pain and none at time of exam with absence of any other sx Code status: Full Diet: Heart Healthy DVT/GI ppx: not indicated Dispo: admitted to [facility], expected LOS <48 hrs FMR H&P: Upper Level - Pertinent history Patient is a 45 y/o male who presents to the hospital for evaluation of SOB. Of note, the patient was DC'd 48H prior after being diagnosed with severe Biventricular Heart Failure, etiology unknown. Patient states that he felt WNL on the AM of DC, but began feeling SOB after returning home. Patient states that he ate a high-fat / high-salt meal and did not adhere to a fluid- restricted diet, and subsequently began to feel SOB as soon as he returned home. Patient also states that he continues to abuse MJ and EtOH. Patient denies any other worrisome signs or symptoms such as fevers, chills, worsening cough, chest pain, N/V/D, ABD pain or bloody stools. - Pertinent findings Physical exam was remarkable for poor air movement during inspiration and notable HUTCHINSON. Patient appeared tired but was otherwise stable, and did not require supplemental O2. Per review of the patient's rhythm strip on continuous cardiac monitoring, there was no evidence of ST changes or arrhythmia. - Plan Date/Time: 09/04/20 1443 Patient is a 45 y/o make with a PMH significant for Biventricular Heart Failure, Tobacco Abuse, and Polysubstance Abuse who presents to the hospital as a transfer from an outside facility for worsening SOB. 1. CHF Exacerbation -Worsening SOB since DC on 09/02 with continue Tobacco Abuse, Substance Abuse, and non-adherence to a Heart Healthy Diet -Per check-out, initial physical exam was notable for dyspnea and crackles largely resolved at the time of evaluation by the Resident Medicine Team following administration of Furosemide and Nitro -Trop: 0.064 will continue to trend -BNP: 4350 increased from 2317 during previous admission -EKG: No reported ST changes -CXR: Cardiomegaly with severe chronic lung changes unchanged from last CXR -s/p Furosemide and Nitro administration at outside facility will continue based on clinical picture -Will monitor with continuous cardiac monitoring and ensure that medication regimen is optimized -Extensive work-up was completed during previous admission will not repeat Echo or additional investigation into etiology of Biventricular Heart Failure at this time -Daily Weight, Strict I&Os 2. Tobacco Abuse -Likely contributing factor to #1 -Patient states that he now only smokes 0.5 PPD, down from 2 PPD prior to his previous admission -Will summer camp counselor strongly on the importance of polysubstance abuse cessation 3. Polysubstance Abuse -Likely contributing factor to #1 -Patient admits to using MJ since DC -UDS during last admission was positive for Cocaine and MJ -UDS: Pending -Will summer camp counselor strongly on the importance of Polysubstance Abuse cessation 4. ETOH Abuse -Patient endorsed daily EtOH Abuse during his previous admission but denies drinking since DC -ASE Protocol Code: Full PCP: CC Diet: Heart Healthy w/ Low Sodium (Fluid Restriction < 1800 ml/day) Activity: Ad zhang VTE PPx: None GI PPx: None Dispo: Patient is currently stable and admitted to the Telemetry Floor for further observation and treatment of likely CHF Exacerbation. Will continue diuresis as per above and ensure that patients medication regimen is optimized based on his multiple co-morbidities. Will summer camp counselor patient on the importance of Tobacco/EtOH/Substance Abuse cessation and educate on appropriate dietary modifications. Expected LOS < 48H. I, [Guru Ashley], have evaluated this patient and agree with findings/plan as outlined by music industry internship resident. Pertinent changes/additions are listed here. Addendum - Attending - Attending Attestation Date/Time: 09/04/20 4466 I personally evaluated the patient and discussed the management with Dr. Pineda I agree with the History, Examination, Assessment and Plan documented above with any addition or exceptions noted below. Patient recent hospitalized with nonischemic cardiomyopathy with HFrEF 10-15% with life vest episode of recurrent pulmonary edema improved with nitrates and IV lasix. Observation continue entrest, Coreg and ASA po loop diuretic.
[2020-09-04] MEDS ORDERED: Senokot S 8.6-50 MG TAB PO PRN (15:27)
[2020-09-04] MEDS ORDERED: Acetaminophen 325 MG TAB PO PRN (15:27)
[2020-09-04] MEDS ORDERED: Acetaminophen 650 MG Suppository PR PRN (15:27)
[2020-09-04] MEDS ORDERED: Calcium Carbonate 500 MG ChewTAB PO PRN (15:27)
[2020-09-04] MEDS ORDERED: Nitroglycerin 0.4 MG TAB (25 Tab Bottle) SL PRN (15:35)
[2020-09-04 17:47] LABS: Amphetamine Not Detected (NotDetected); Barbiturates Screen Not Detected (NotDetected); Benzodiazepine Screen Not Detected (NotDetected); Cocaine Metabolite Screen Not Detected (NotDetected); Medtox Control Line Valid? VALID (VALID); Medtox Reader # READER 1; Methadone Not Detected (NotDetected); Methamphetamine Not Detected (NotDetected); Opiate Screen Not Detected (NotDetected); Oxycodone Screen Not Detected (NotDetected); Phencyclidine (PCP) Not Detected (NotDetected); THC/Cannabinoid Screen Detected (NotDetected); Tricyclic Screen Not Detected (NotDetected)
[2020-09-04] MEDS ORDERED: Nicotine 14 MG PATCH TD SCH (18:30)
[2020-09-04] MEDS: Carvedilol 3.125 MG TAB PO SCH (18:51)
[2020-09-04] MEDS ORDERED: Furosemide 40 MG/4 ML VIAL SLOW IVP SCH (22:15)
[2020-09-05 04:54] LABS: #Eosinphils 0.3 thou/uL (0.0-0.7); #Lymphocytes 2.1 thou/uL (1.20-3.40); #Monocytes 0.6 thou/uL (0.11-0.59); #Neutrophils 5.2 thou/uL (1.40-6.50); %Basophils 0.5 % (0.0-1.0); %Eosinophils 3.1 % (0.0-10.0); %Lymphocytes 25.7 % (21.0-51.0); %Monocytes 7.2 % (0.0-10.0); %Neutrophils 63.5 % (42.0-75.0); Mean Corpuscular HGB CONC 34.6 g/dL (32.0-36.0); Mean Corpuscular Volume 95.4 fL (78.0-98.0); Mean Platelet Volume 7.7 fL (7.4-10.4); Platelet Count 294 thou/uL (130-400); RBC Distribution Width 12.4 % (11.5-14.5); Red Blood Cell (RBC) Count 4.55 mill/uL (4.70-6.10); White Blood Cell (WBC) Count 8.2 thou/uL (4.8-10.8)
--- NOTE | 2020-09-05 05:20 | PDOC.FM ---
- Subjective Subjective: Pt states he is short of breathe this morning. He says after the lasix he felt well yesterday. He said he started getting short of breathe on Sunday but he felt great the day before. He denies any edema - Objective MAR Reviewed: Yes Vital Signs & Weight: Vital Signs (12 hours) Temp Pulse Resp BP Pulse Ox 09/04/20 19:50 98.1 F 102 H 16 122/93 H 99 Weight Weight 61.235 kg I&O: 09/03/20 09/04/20 09/05/20 06:59 06:59 06:59 Intake Total 300 Output Total 900 Balance -600 Result Diagrams: 09/05/20 04:30 09/05/20 04:30 EKG Reviewed by me: Yes (sinus tach) Phys Exam - Physical Examination Constitutional: NAD HEENT: moist MMs, sclera anicteric Neck: no nodes, supple Respiratory: no wheezing, no rales, no rhonchi, clear to auscultation bilateral Cardiovascular: RRR, no significant murmur Gastrointestinal: soft, non-tender, positive bowel sounds Musculoskeletal: no edema, pulses present Neurological: moves all 4 limbs Lymphatic: no nodes Psychiatric: normal affect Skin: no rash, normal turgor Dx/Plan (1) CHF exacerbation Code(s): I50.9 - HEART FAILURE, UNSPECIFIED Status: Acute (2) Elevated troponin Code(s): R77.8 - OTHER SPECIFIED ABNORMALITIES OF PLASMA PROTEINS Status: Acute (3) Heart failure with reduced ejection fraction Code(s): I50.20 - UNSPECIFIED SYSTOLIC (CONGESTIVE) HEART FAILURE Status: Acute (4) Alcohol abuse Code(s): F10.10 - ALCOHOL ABUSE, UNCOMPLICATED Status: Acute (5) Marijuana abuse Code(s): F12.10 - CANNABIS ABUSE, UNCOMPLICATED Status: Acute (6) Multifocal pneumonia Code(s): J18.9 - PNEUMONIA, UNSPECIFIED ORGANISM Status: Acute (7) Tobacco abuse Code(s): Z72.0 - TOBACCO USE Status: Acute - Plan Plan: Patient is a 45 y/o make with a PMH significant for Biventricular Heart Failure, Tobacco Abuse, and Polysubstance Abuse who presents to the hospital as a transfer from an outside facility for worsening SOB. 1. CHF Exacerbation -Worsening SOB since DC on 09/02 with continue Tobacco Abuse, Substance Abuse, and non-adherence to a Heart Healthy Diet -Per check-out, initial physical exam was notable for dyspnea and crackles largely resolved at the time of evaluation by the Resident Medicine Team following administration of Furosemide and Nitro -Trop: 0.064 > 0.076, but had signifcant work up with last visit -BNP: 4350 increased from 2317 during previous admission, but this is likely due to Entresto affecting pathway -EKG: No reported ST changes -CXR: Cardiomegaly with severe chronic lung changes unchanged from last CXR -s/p Furosemide 20 mg IV Lasix and Nitro administration at outside facility will continue based on clinical picture -Will monitor with continuous cardiac monitoring and ensure that medication regimen is optimized -Extensive work-up was completed during previous admission will not repeat Echo or additional investigation into etiology of Biventricular Heart Failure at this time -Daily Weight, Strict I&Os 2. Indeterminate troponin - Likely 2/2 demand ischemia given no history of chest pain and none at time of exam with absence of any other sx -Trop: 0.064 > 0.076 -Will monitor for signs of chest pain 3. Tobacco Abuse -Likely contributing factor to #1 -Patient states that he now only smokes 0.5 PPD, down from 2 PPD prior to his previous admission -Will corporate counselor strongly on the importance of polysubstance abuse cessation 4. Polysubstance Abuse -Likely contributing factor to #1 -Patient admits to using MJ since DC -UDS during last admission was positive for Cocaine and MJ -UDS: + THC -Will corporate counselor strongly on the importance of Polysubstance Abuse cessation 5. ETOH Abuse -Patient endorsed daily EtOH Abuse during his previous admission but denies drinking since DC -ASE Protocol Code: Full PCP: CC Diet: Heart Healthy w/ Low Sodium (Fluid Restriction < 1800 ml/day) Activity: Ad zhang VTE PPx: None GI PPx: None Dispo: Given IV Lasix this morning. Will send with Lasix PO if clinically stable this afternoon. Follow up with PCP is important. Addendum - Attending - Attending Attestation Date/Time: 09/05/20 [id number] I personally evaluated the patient and discussed the management with Dr. Hinton I agree with the History, Examination, Assessment and Plan documented above with any addition or exceptions noted below. HFrEF s/p diuresis much improved discussed salt and fluid restriction aware of need to avoid substance abuse and importance of life vest.
[2020-09-05 05:28] LABS: Anion Gap 13 mmol/L (10-20); BUN (Urea Nitrogen) 19 mg/dL (8.9-20.6); Calc. Creatinine Clearance 99 mL/min (70-130); Calcium 9.3 mg/dL (7.8-10.44); Carbon Dioxide 23 mmol/L (22-29); Chloride 103 mmol/L (98-107); Estimated GFR-MDRD Greater than 90; Glucose 89 mg/dL (70-105); Magnesium 2.1 mg/dL (1.6-2.6); Potassium 3.9 mmol/L (3.5-5.1); Sodium 135 mmol/L (136-145)
[2020-09-05] MEDS ORDERED: Furosemide 40 MG/4 ML VIAL SLOW IVP SCH (06:30)
[2020-09-05 07:13] LABS: Troponin I 0.076 ng/mL (< 0.028)
[2020-09-05] MEDS: Carvedilol 3.125 MG TAB PO SCH ×2 (08:49→18:38)
[2020-09-05] MEDS ORDERED: Aspirin 81 mg Enteric Coated Tablet PO SCH (09:00)
[2020-09-05] MEDS ORDERED: Loratadine/Pseudoephedrine 10/240 mg Tablet PO SCH (09:00)
[2020-09-05 18:03] VITALS: BP 110/72; TEMP 98.5
--- NOTE | 2020-09-12 20:41 | DIS ---
DATE OF ADMISSION: 09/04/2020 DATE OF DISCHARGE: 09/05/2020 ATTENDING: Miles Brooks MD RESIDENT: Saul Hinton MD CONSULTS: None. IMAGING: None. PRIMARY DIAGNOSES: 1. Congestive heart failure exacerbation. 2. Indeterminate troponin. SECONDARY DIAGNOSES: 1. Tobacco abuse. 2. Polysubstance abuse. 3. Alcohol abuse. DISCHARGE MEDICATIONS: Start Lasix 40 mg p.o. daily. Continue home medications : 1. Nitrostat 0.4 mg sublingual q.5 minutes p.r.n. for chest pain. 2. Claritin-D 12-Hour one tab daily. 3. Coreg 6.25 mg p.o. b.i.d. with meals. 4. Aspirin 81 mg daily. 5. Entresto 24 mg/26 mg tablet one tab p.o. b.i.d. DISCONTINUED MEDICATIONS: None. HISTORY OF PRESENT ILLNESS: The patient is a 45-year-old male with past medical history of newly diagnosed heart failure with reduced ejection fraction and EF of less than 15%, who presented to an outside hospital for shortness of breath. The patient reports that since being discharged on 09/02, he had progressively worsening shortness of breath that began on the evening of his discharge on 09/02, is worse when lying down. He ate fried chicken finger meal the night after his discharge. He also reports 2 puffs of a joint of marijuana. Denies any other drug use. He was recently managed at [facility] from 08/27 to 09/02. Catheterization revealed 50% stenosis of RCA. Echo with pre-thrombus in IVC, EF less than 15%, started on Entresto and Coreg, suspicion at that time for hemochromatosis. In the ED, he was given nitroglycerin paste, 40 of IV Lasix and was transferred to [facility] ER. 1. CHF exacerbation. The patient had a BNP that was 4350, which was an increase from 2317 during previous hospital stay. However, he started Entresto, which is likely affecting the BNP. EKG showed no ST changes. Chest x-ray showed cardiomegaly with chronic lung changes, unchanged from last x-ray. He received 20 mg of IV Lasix at an outside facility and 2 doses of 40 mg IV Lasix during hospitalization. He had good urine output and was no longer short of breath prior to discharge. 2. Indeterminate troponin, likely secondary to demand ischemia. Troponin was 0.064 and 0.076. Cardiology was not consulted due to the fact that the patient recently had a heart catheterization in prior admission earlier in the month. 3. Tobacco abuse. The patient states he smokes 1.5 packs per day, down from 2 on previous admission. Counseled on importance of tobacco cessation. 4. Polysubstance abuse, history of UDS positive for cocaine. This admission, his UDS was positive for THC. Counseled on the importance of marijuana cessation and cessation of alcohol abuse. Patient endorsed daily alcohol use. ASE protocol was in place, but no medications were given. It was discussed with the patient that he should limit his alcohol intake due to heart failure. DISCHARGE INSTRUCTIONS: 1. Discharged to home. 2. Activity: As tolerated. 3. Diet: Heart healthy, low sodium with fluid restriction of 2 liters. 4. Follow up with [facility] on 09/09. Job ID: [id number]
== END 2020-09-05 18:07 | disposition home or self-care (01) ==
LOC: 2NO 10:19 → INTOOBSV 10:19
PROVIDERS: ADMIT Family Medicine; ATTEND Family Medicine
DX: I50.82 Biventricular heart failure (principal); F19.10 Other psychoactive substance abuse, uncomplicated; F17.210 Nicotine dependence, cigarettes, uncomplicated; I51.7 Cardiomegaly; Z79.899 Other long term (current) drug therapy; Z88.0 Allergy status to penicillin; Z88.2 Allergy status to sulfonamides; Z80.1 Family history of malignant neoplasm of trachea, bronchus and lung; Z87.01 Personal history of pneumonia (recurrent)
CPT/HCPCS: 36415; 80048; 80306; 83735; 84484; 85025; 96374; 96376; G0378; J1940

== ENCOUNTER 2020-10-31 05:35 | Inpatient (IN) | payer OTHER ==
[2020-10-31] MEDS ORDERED: Azithromycin 500 MG VIAL ONE (06:30)
[2020-10-31] MEDS ORDERED: Cefepime 2 GM VIAL ONE (06:30)
[2020-10-31] MEDS ORDERED: methylPREDNISolone Sod Succ/PF 125 MG/2 ML VIAL ONE (06:30)
--- NOTE | 2020-10-31 08:36 | PDOC.HHP ---
Hospitalist HPI - History of Present Illness Hemoptysis History of Present Illness: Mr. 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 Patient reports that late yesterday evening day prior to admission he suddenly began coughing up large amounts of bright red blood. Patient reports that overnight he coughed up approximately 1 cup of blood. Patient denies any other symptoms including no shortness of breath no chest pain no dyspnea. Patient recently started Eliquis 4 days ago and has been compliant. He denies any difficulty swallowing, nasal drainage or bloody noses, blood in his stool or melena. Patient with recent admission for acute heart failure exacerbation and new onset idiopathic cardiomyopathy. Thought to be question viral pathology versus alcohol induced. Patient has recent heart cath which showed 50% stenosis to the RCA. Patient recently had complete work-up done by Dr. Bacon of infectious disease and was negative for HIV or other viral pathogens. In emergency room initial vital signs 113/84, 82, 98.6, 97% on room air. H&H stable at 16.7/48.3. WBC 9.6. BUN/CR 13/0.85. Sodium 138, potassium 3.9. Troponin [address] of the chest showed old cavitary lesion with significant bronchiectasis, blebs which appears stable from prior exams per my review. No obvious sources of hemorrhage identified. Hospitalist ROS - Review of Systems Constitutional: denies: fever, chills, sweats, weakness, malaise, other Eyes: denies: pain, vision change, conjunctivae inflammation, eyelid inflammation, redness, other ENT: denies: ear pain, ear discharge, nose pain, nose discharge, nose congestion, mouth pain, mouth swelling, throat pain, throat swelling, other Respiratory: reports: cough, hemoptysis, sputum. denies: dry, shortness of breath, SOB with excertion, pleuritic pain, wheezing, other Cardiovascular: denies: chest pain, palpitations, orthopnea, paroxysmal noc. dyspnea, edema, light headedness, other Gastrointestinal: denies: nausea, vomiting, abdominal pain, diarrhea, constipation, melena, hematochezia, other Genitourinary: denies: dysuria, frequency, incontinence, hematuria, retention, other Musculoskeletal: denies: neck pain, shoulder pain, arm pain, back pain, hand pain, leg pain, foot pain, other Skin: denies: rash, lesions, mary, bruising, other Neurological: denies: weakness, numbness, incoordination, change in speech, confusion, seizures, other - Medication Medications: Home medications include Coreg Aspirin Entresto Eliquis Lasix Allergy to penicillin and sulfa Hospitalist History - Past Medical History Other Medical History: Past medical history of MAC treated 8 years ago Idiopathic cardiomyopathy with EF of 15% with LifeVest 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 Tobacco use Alcohol use Hypertension Hyperlipidemia - Past Surgical History Other Surgical History: Past surgical history includes Hernia repair x2 Lung biopsy Heart catheterization - Family History Other Family History: Patient reports family history of lung cancer in his father reportedly secondary to agent orange Family history of cardiac disease - Social History Smoking Status: Current every day smoker Tobacco Type: chewing tobacco Alcohol: reports: Heavy Drugs: reports: marijuana Living Situation: With Family Activity level: independent ambulation - Exam General Appearance: NAD, awake alert General - other findings: Thin Eye: PERRL, anicteric sclera ENT: normocephalic atraumatic, no oropharyngeal lesions, moist mucosa Neck: supple, symmetric, no JVD, no thyromegaly, no lymphadenopathy, no carotid bruit Heart: RRR, normal peripheral pulses, murmur present Respiratory: no wheezes, normal chest expansion, no tachypnea Respiratory - other findings: Rhonchi heard over the right upper lung field Gastrointestinal: soft, non-tender, non-distended, normal bowel sounds, no palpable masses, no hepatomegaly, no splenomegaly, no bruit Extremities: no cyanosis, no clubbing, no edema Skin: normal turgor, no lesions, no rashes Neurological: cranial nerve grossly intact, normal sensation to touch, no weakness, no focal deficits, no new deficit Musculoskeletal: normal tone, normal strength, no muscle wasting Psychiatric: normal affect, normal behavior, A&O x 3 Hospitalist Results - Labs Result Diagrams: 11/01/20 03:06 11/01/20 03:06 Hospitalist H&P A/P - Plan Plan: 45-year-old male with 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 Hemoptysis Patient has history of MAC which was treated approximately [address] Vasques. At that time patient did not fully complete therapy and was lost to follow-up. Patient was recently admitted in August and had work-up by in fectious disease which did not identify any infection. Patient was HIV and TB negative at that time. Patient did recently start Eliquis secondary to IVC thrombus 4 days prior to admission. We will hold Eliquis given his continued hemoptysis and consult cardiology and pulmonology for further recommendations. Patient's respiratory status is stable and he has no airway compromise. In the room, patient coughed up small amount of bright red blood mixed with frothy white sputum. His H/H is stable and he is hemodynamically stable. No nasal or oropharyngeal bleeding identified. Patient received cefepime, azithromycin and steroids in the emergency room. Plan Continue IV antibiotics Hold Eliquis Sputum culture Closely monitor respiratory status Pulmonology, cardiology consults recommendations appreciated Idiopathic cardiomyopathy History of idiopathic cardiomyopathy recently diagnosed in August of this year. EF less than 15%. Patient has LifeVest in place. Follows with Dr. López of cardiology. Patient recently had heart cath which only showed a 50% stenosis of the RCA. Question if cardiomyopathy is viral versus alcohol induced. Patient is on Entresto, Coreg, aspirin and Lasix as well as newly started on Eliquis. His initial troponin was 0.013. He has no chest pain. Will consult cardiology regarding anticoagulation. Plan Hold Eliquis in setting of continued hemoptysis Continue Entresto, Coreg, Lasix, aspirin Cardiology consult for anticoagulation, recommendations appreciated History of MAC History of Mycobacterium avium complex infection approximately 8 years ago which was treated by Dr. Vasques. Patient did undergo 8 months of treatment but was lost to follow-up. Patient recently evaluated by infectious disease in August and was negative for tuberculosis at that time. While this could be a recurrence of his MAC likely new onset hemoptysis related to patient starting on Eliquis. I&D completed thorough work-up at that time and patient was negative for HIV, Aspergillus, TB, Histoplasma, Blastomyces, Hepatitis, and Syphilis. Plan -Sputum culture -Likely resolved -Will continue to monitor IVC thrombus Recent admission with new onset heart failure and incidental IVC "pre-thrombus". Patient started on Eliquis 4 days prior to admission presumably for this. Will hold Eliquis given continued hemoptysis and consult cardiology for further recommendations regarding anticoagulation. Plan Hold Eliquis Cardiology consult recommendations appreciated Tobacco use History of tobacco abuse. Patient continues to smoke cigarettes. Will family life counselor on smoking cessation and make nicotine patch available. Alcohol use History of daily alcohol abuse, however patient currently denies use. Will place patient on ASE protocol in meantime. DVT prophylaxiscontraindicated secondary to bleeding Full code Case discussed with attending physician, Dr. Gibson.
[2020-10-31] MEDS ORDERED: Acetaminophen 325 MG TAB PO PRN (08:49)
[2020-10-31] MEDS ORDERED: Acetaminophen 650 MG Suppository PR PRN (08:49)
--- NOTE | 2020-10-31 08:52 | CT ---
PRELIMINARY REPORT/[facility]/EMERGENCY AFTER HOURS PROCEDURE: EXAM: CTA Chest with Intravenous Contrast CLINICAL HISTORY: Hemoptysis TECHNIQUE: Axial CTA images of the chest with intravenous contrast. Three-dimensional MIP/volume rendered reform ations were performed. CONTRAST: With; ISOVUE 370, 90ML COMPARISON: 08/28/2020. FINDINGS: PULMONARY ARTERIES There is no intraluminal filling defect suspicious for PE. AORTA No thoracic aortic aneurysm or dissection. LUNGS Severe scarring with cavitation in the left upper lung is again noted and unchanged. There is an opa city in the left lingula which has a lentiform shape and is unchanged. There is significant emphysem atous change within both lungs. Moderate scarring in both upper lungs.. PLEURAL SPACES No pleural effusion. No pneumothorax. HEART AND MEDIASTINUM The heart size is mildly prominent. No pericardial effusion.. LYMPH NODES No lymphadenopathy. BONES No focal osseous abnormality or acute fracture. CHEST WALL AND UPPER ABDOMEN Images through the upper abdomen are unremarkable. The chest wall is unremarkable. IMPRESSION: There is no evidence of pulmonary arterial emboli. Emphysematous changes identified in both lungs are again noted. Severe scarring with cavitation in the left upper lung is again identified and unchanged. There is a n opacity in the left lingula which has a lentiform shape and is unchanged. Atypical infection is ayala spected in this region. ELECTRONICALLY SIGNED BY: Olamide Kraus DO Oct 31, 2020 6:32:30 AM [employer] CO[employer] This report is intended for review by the ordering physician only, in accordance of law. If you recei ve this report in error, please call [facility] at [phone]. FINAL REPORT EMERGENCY AFTER HOURS CTA CHEST WITH CONTRAST: DATE: 10/31/2020 COMPARISON: 08/28/2020. FINDINGS/IMPRESSION: I agree with the findings and impression given in the preliminary report per [facility] physici an. 1. There are severe emphysematous changes in the lungs with scarring in the lung apices. There is vo lume loss in the left apex with areas of stable soft tissue density. 2. No evidence of pulmonary thromboembolism. POS: EAA
[2020-10-31] MEDS: Aspirin 81 mg Enteric Coated Tablet PO SCH (09:47)
[2020-10-31] MEDS: Furosemide 40 MG TAB PO SCH (09:48)
[2020-10-31] MEDS: Nicotine 14 MG PATCH TD SCH (09:48)
[2020-10-31 10:31] VITALS: BMI 19.2
--- NOTE | 2020-10-31 13:14 | PDOC.CPN ---
- Subjective Date: 10/31/20 Time: 13:04 Interval history: Mr. Zendejas presented to the ER for a c/o coughing up blood. He has a history of cardiomyopathy and severely decreased EF of 15%, he is wearing a Life Vest. He was placed on Eliquis this past week as an outpatient for a a pre-thromubs in his IVC. He states that early this morning about 2:00 a.m., he was watching a movie and felt something funny in his throat, and he states he coughed up about one cup of blood. His hemoglobin remains stable at 16.7 today. He states that he went to the ER and while he was in the ambulance being transported here, he did cough up a small amount of blood, he denies any more hemoptysis since being admitted into the hospital today. He denies blood in his stool, black-tarry stools, or coffee ground emesis. He states that he still smoking marijuana as well as cigarettes, 1 PPD. He states that he still drinks 1-2 beers periodically. He denies any chest pain, shortness of breath, dyspnea, nausea, dizziness or syncope, or BLE edema. - Review of Systems General: denies: fever/chills, weight/appetite/sleep changes, night sweats, fatigue Respiratory: reports: cough (hemoptysis) Cardiovascular: denies: chest pain, palpitation, edema, paroxysmal nocturnal dyspnea, orthopnea Gastrointestinal: denies: nausea, vomiting, diarrhea, constipation, abd pain, GI bleeding Musculoskeletal: denies: pain, tenderness, stiffness, swelling, arthritis/arthralgias Neurological: denies: numbness, syncope, seizure, weakness - Objective Allergies/Adverse Reactions: Allergies Allergy/AdvReac Type Severity Reaction Status Date / Time Penicillins Allergy Verified 08/27/20 00:06 Sulfa (Sulfonamide Allergy Verified 08/27/20 00:07 Antibiotics) Visit Medications: Current Medications Acetaminophen (Acetaminophen 325 Mg Tab) 650 mg PO Q4H PRN PRN Reason: Headache/Fever/Mild Pain (1-3) Acetaminophen (Acetaminophen 650 Mg Suppository) 650 mg TN Q4H PRN PRN Reason: Headache/Fever/Mild Pain (1-3) Aspirin (Aspirin 81 Mg Enteric Coated Tablet) 81 mg PO DAILY [facility] Last Admin: 10/31/20 09:47 Dose: 81 mg Documented by: Carvedilol (Carvedilol 3.125 Mg Tab) 6.25 mg PO BID-[facility] Furosemide (Furosemide 40 Mg Tab) 40 mg PO DAILY [facility] Last Admin: 10/31/20 09:48 Dose: Not Given Documented by: Cefepime HCl 2 gm/ Sodium (Chloride) 100 mls @ 200 mls/hr IVPB 0600,1800 [facility] Azithromycin 500 mg/ Sodium (Chloride) 250 mls @ 250 mls/hr IVPB Q24HR [facility] Nicotine (Nicotine 14 Mg Patch) 14 mg TD Q24HR [facility] Last Admin: 10/31/20 09:48 Dose: Not Given Documented by: Pantoprazole Sodium (Pantoprazole 40 Mg Tab) 40 mg PO DAILY [facility] Sacubitril/Valsartan (Sacubitril 24mg/Valsartan 26mg Tab) 1 tab PO BID [facility] Last Admin: 10/31/20 09:47 Dose: 1 tab Documented by: Sodium Chloride (Flush - Normal Saline 10 Ml Syringe) 10 ml IVF PRN PRN PRN Reason: Saline Flush Vital Signs & Weight: Vital Signs Temp Pulse Resp BP Pulse Ox 10/31/20 07:49 98.1 F 91 18 102/71 98 Weight 134 lb - CHADS-VASc Congestive heart failure: 1 Risk Score: 1 - Quality Measures Condition: Heart Failure CV meds: Beta Joanie: Yes, NICOLE/ARB: Yes, ASA: Yes, Plavix/Effient/Brilinta: No, Anticoagulant: No - Medication Contraindications No Anticoagulant reason: Medical contraindication - Physical Exam General: alert & oriented x3, appears well, no apparent distress HEENT: normocephaly Neck: supple neck, midline trachea, no JVD/HJR, no masses, no bruit Cardiac: regular rate and rhythm, no murmur, S1/S2 Lungs: clear to auscultation, normal breath sounds, normal exam, no wheeze, rales, rhonchi Neuro: cranial nerve 2-12 intact, grossly intact, motor function intact Abdomen: active bowel sounds, soft, non-tender Extremities: no cyanosis, no clubbing, no edema, 2+ Posterior Tibial, 2+ Dorsalis Pedus Skin: clear Musculoskeletal: normal range of motion, no pain, no fluid collection - Assessment/Plan Assessment/Plan: 1. Hemoptysis: Patient denies any more hemoptysis since being admitted to the hospital. We will stop his Eliquis at this time. I will add Protonix daily. He may need a GI consult if this continues or if he begins having hematemesis, but this may be pulmonary related d/t his previous history of starting OAC and MAC and other chroninc lung scarring as seen on his chest CT. He is scheduled to have a Pulmonary consult today, he is requesting to see Dr. Penaloza as his family is well-established with him. I will also start him back on a heart healthy, low-sodium diet as it is unlikely that any other procedures will be done today and he has had no evidence of hematemesis. 2. Cardiomyopathy and decresed EF: he is wearing his life vest and is on a beta joanie as well as Entresto, Aspirin and Lasix. He is scheduled for an ECHO outpatient and also sees cardiac rehab and Dr. Pablo with the heart failure clinic. We will continue to monitor. Pt. seen and eval. by me. I have discussed this case with the DINING ROOM CAPTAIN and personally examined the pt. I agree with the above A/P. Poor prognosis in this pt. with multiple medical issues. comfort
[2020-10-31] MEDS ORDERED: Iopamidol 370 76% 100 ML VIAL ONE (13:44)
[2020-10-31] MEDS: Cefepime 2 GM in Sodium Chloride 0.9% 100 ML IVPB SCH (18:21)
[2020-10-31] MEDS: Carvedilol 3.125 MG TAB PO SCH (18:35)
[2020-10-31 21:59] LABS: Hemoglobin 16.1 g/dL (14.0-18.0)
[2020-10-31 22:05] LABS: Prothrombin Time 13.6 sec (12.0-14.7)
[2020-10-31 22:06] LABS: PTT 32.7 sec (22.9-36.1)
[2020-10-31] MEDS ORDERED: Ondansetron PF 4 MG/2 ML Vial IVP PRN (23:28)
[2020-10-31] MEDS ORDERED: Lorazepam 2 MG/ML VIAL SLOW IVP SCH (23:45)
--- NOTE | 2020-11-01 00:07 | PDOC.EVN ---
Event Note - Event Note Event Note: Nursing called. Patient coughing/spitting blood. Approximately 900mls total today. Patient is frustrated. He ambulated to bathroom, lifevest alerted of possible discharge, but did not discharge per patient. At time, patient BP 124/89, HR 160, RR 20, sp02 92% RA. Upon assessment patient calm, sitting bedside. spitting and intermittently coughing blood into vomit bag. No acute distress. Speaking in complete sentences. Ordered stat EKG. Continue to trend H/H. Transfer to [facility]. Give Kcentra dose x 1 now. Give ativan 1mg IVP now. npo. Consult pulmonology now. Discussed plan with Dr. Rohan Barajas.
[2020-11-01] MEDS ORDERED: HUMAN PROTHROMBIN COMPLX IV SCH (00:45)
[2020-11-01] MEDS ORDERED: ADMIXTURE FEE IV SCH (00:45)
[2020-11-01 04:08] LABS: Anion Gap 17 mmol/L (10-20); BUN (Urea Nitrogen) 25 mg/dL (8.9-20.6); Calc. Creatinine Clearance 104 mL/min (70-130); Calcium 8.7 mg/dL (7.8-10.44); Carbon Dioxide 20 mmol/L (22-29); Chloride 106 mmol/L (98-107); Glucose 132 mg/dL (70-105); Sodium 139 mmol/L (136-145)
[2020-11-01 04:12] LABS: Band 7 % (5-11); Eosinophils 1 % (0-10); Hemoglobin 13.9 g/dL (14.0-18.0); Hypochromia SLIGHT = 6-15 cells (100X) (0-5/hpf); Lymphocytes 21 % (21-51); MDiff Complete? YES; Mean Corpuscular HGB CONC 34.9 g/dL (32.0-36.0); Mean Corpuscular Volume 94.8 fL (78.0-98.0); Mean Platelet Volume 7.8 fL (7.4-10.4); Monocytes 15 % (0-10); Neutrophil 55 % (42-75); Platelet Count 313 thou/uL (130-400); Platelet Morphology Comment Appears Adequate; RBC Distribution Width 11.9 % (11.5-14.5); Reactive Lymphocytes 1 % (0-10); Red Blood Cell (RBC) Count 4.19 mill/uL (4.70-6.10); White Blood Cell (WBC) Count 20.5 thou/uL (4.8-10.8)
[2020-11-01] MEDS: Cefepime 2 GM in Sodium Chloride 0.9% 100 ML IVPB SCH ×2 (05:03→18:21)
--- NOTE | 2020-11-01 05:57 | CON ---
DATE OF CONSULTATION: 10/31/2020 CHIEF COMPLAINT: Hemoptysis. HISTORY OF PRESENT ILLNESS: Mr. 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 At that time, he received appropriate multi-drug therapy under direction of Dr. Vasques. The records are not very clear, but it appears as though the patient simply quit going to the office. I presume that his cultures were negative, although I do not have evidence of that. Both the patient and his mother note that the regimen was extremely expensive and that in part drove their decision to quit therapy. In August, the patient was seen by Dr. Rockwell for worsening of his shortness of breath and abnormal x-ray. He was found at that time to have severe depressed LV function with EF of approximately 15%. He had extensive evaluation for infectious disease and his AFB tests were negative as well as his HIV therapy. The patient is known to have advanced bullous disease with volume loss in the left upper lung as well as diffuse bronchiectatic changes. These are really no different than they were a number of years ago, but presumably the result of his MAC disease. The patient presents to the hospital now with hemoptysis. He states that he was doing well last evening when he suddenly felt a tickle in his throat. He cleared his throat and expectorated a [id number] amount of bright red blood. He had several more episodes over a few hours and became concerned and ultimately presented to the emergency room and transferred to [facility]. He estimates total amount of blood streaking at one cup. It has been much less now through the day. There is no mix of purulent material. He has not had any recent weight loss. He has not had any fevers or chills. He denies any chest pain or associated precipitating factors. The patient was placed on Eliquis on of the previous week, so he has been on it about nine days. He and his mother recall that it was started presumably for his heart failure. They deny knowledge of atrial fibrillation. The chart makes comment of possible IVC thrombosis, although I do not see any x-ray report or other confirmatory test in that regard. SOCIAL HISTORY: The patient is a 45-year-old male, lives at home with his mother. He has intolerance to penicillin and sulfa. He is a heavy smoker of 1 to 2 packs per day and I have talked to him about the critical importance of smoking cessation. HOME MEDICATIONS: Include; 1. Entresto b.i.d. 2. Lasix 40 daily. 3. Coreg 6.25 b.i.d. 4. Aspirin 81 daily. 5. Nitroglycerin p.r.n. 6. Claritin-D. 7. He was recently placed on Eliquis. He has seen Dr. López for his Cardiology care. PAST MEDICAL HISTORY: Remarkable for mycobacterium avium complex. He has history of congestive heart failure with relatively normal coronaries, at least on the basis of my assessment of his catheterization report. He has bullous lung disease and bronchiectasis in large part related to or contributory to his mycobacterium avium. He is a long-standing smoker without home oxygen. REVIEW OF SYSTEMS: Remarkable as above. PHYSICAL EXAMINATION: VITAL SIGNS: Blood pressure 102/71, heart rate is 91, and respiratory rate 18. He is afebrile. Saturation 98% on room air. Weight 134 pounds with BMI of 19. GENERAL: He is a 45-year-old gentleman, appears older than the stated age. There is no obvious bleeding source in the nasal passages or the oropharynx. NECK: Shows no adenopathy. LUNGS: Showed decreased breath sounds, especially on the left. He has some rhonchi on the right. I do not hear any wheezes. HEART: Regular rate and rhythm. ABDOMEN: Soft. Bowel sounds are normal. EXTREMITIES: He does not have any edema. LABORATORY DATA: None available here, but prior to transfer; his white count was 9600, hemoglobin was 16.7 with hematocrit 48.3, and platelet count 248,000. PTT was 41 seconds and INR 14.7. Chemistries included sodium 138, potassium 3.9, chloride 103, CO2 is 23, BUN 13, and creatinine 0.85. Liver tests were negative. CRP is minimally elevated at 0.9. BNP was elevated at 4350. Chest x-ray shows volume loss in the left with large cavity and apical capping. There are diffuse emphysematous changes in the lung zones. IMPRESSION: 1. Hemoptysis. The patient has been stable for many years, has treatment of his mycobacterium avium complex disease and now has significant hemoptysis. He was recently placed on Eliquis and I would assume that to be the cause rather than a re-exacerbation of his mycobacterium avium complex disease. The indication for anticoagulation is not clear to me. The patient reports that it was given for heart failure, although the chart reports that he had possible inferior vena cava thrombosis. In any circumstance, it does not appear as though he is going to be a very good candidate for anticoagulation therapy. 2. Severe heart failure. 3. Tobacco abuse; longstanding, heavy, and active. 4. Chronic obstructive pulmonary disease, advanced secondary to above. PLAN: At this point, we have discontinued his Eliquis. I do not think that he needs emergent bronchoscopy. It is reasonable to try to get sputum to see if he has re-exacerbation of his MAC disease, but that does not seem very likely, especially in light of recent extensive evaluation by Dr. Rockwell, which did not demonstrate re-exacerbation of MAC pathology. I certainly sympathize with the need for anticoagulation, but choices are going to be very limited. I have strongly encouraged the patient regarding smoking cessation. We have talked about traditional treatment of his MAC disease and I think that he is quite fortunate that his disease was cured. This is certainly not the case for the majority of patients. Thank you for this consultation. We will be happy to follow along. ADDENDUM: I have spoken with Dr. López about his indication for anticoagulation therapy. She reports that she started it because of his profound systolic dysfunction with EF of less than 15%. When I quiz about the possibility of IVC obstruction, she states that was not the case, but apparently there was notation of sluggish flow or maybe even artifact in the IVC, but clearly in her mind, no evidence of IVC thrombosis. As such, I think there is even greater ability to remove anticoagulation therapy. It would have been challenging if he were to have significant thrombotic events, but unfortunately, we are just going to have to treat his heart failure medically without anticoagulation. It has also been reported to me that he had significant worsening of hemoptysis this evening after my visit with him. Job ID: [id number]
[2020-11-01] MEDS: Furosemide 40 MG TAB PO SCH (09:03)
[2020-11-01] MEDS: Aspirin 81 mg Enteric Coated Tablet PO SCH (09:03)
[2020-11-01] MEDS: Azithromycin 500 MG in Sodium Chloride 0.9% 250 ML 250 ML IVPB SCH (09:04)
[2020-11-01] MEDS: Nicotine 14 MG PATCH TD SCH (09:10)
[2020-11-01] MEDS: Carvedilol 3.125 MG TAB PO SCH ×2 (09:10→18:42)
[2020-11-01] MEDS: Lorazepam 2 MG/ML VIAL SLOW IVP PRN (10:06)
--- NOTE | 2020-11-01 10:45 | PDOC.CPN ---
- Subjective Date: 11/01/20 Time: 10:45 - Review of Systems General: reports: fatigue Respiratory: reports: cough (hemoptysis) Cardiovascular: denies: chest pain, palpitation, edema, paroxysmal nocturnal dyspnea, orthopnea Gastrointestinal: denies: nausea, vomiting, diarrhea, constipation, abd pain, GI bleeding Musculoskeletal: denies: pain, tenderness, stiffness, swelling, arthrit is/arthralgias Neurological: denies: numbness, syncope, seizure, weakness - Objective Allergies/Adverse Reactions: Allergies Allergy/AdvReac Type Severity Reaction Status Date / Time Penicillins Allergy Verified 08/27/20 00:06 Sulfa (Sulfonamide Allergy Verified 08/27/20 00:07 Antibiotics) Visit Medications: Current Medications Acetaminophen (Acetaminophen 325 Mg Tab) 650 mg PO Q4H PRN PRN Reason: Headache/Fever/Mild Pain (1-3) Acetaminophen (Acetaminophen 650 Mg Suppository) 650 mg ME Q4H PRN PRN Reason: Headache/Fever/Mild Pain (1-3) Aspirin (Aspirin 81 Mg Enteric Coated Tablet) 81 mg PO DAILY [facility] Last Admin: 11/01/20 09:03 Dose: 81 mg Documented by: Carvedilol (Carvedilol 3.125 Mg Tab) 6.25 mg PO BID-WM [facility] Last Admin: 11/01/20 09:10 Dose: Not Given Documented by: Furosemide (Furosemide 40 Mg Tab) 40 mg PO DAILY [facility] Last Admin: 11/01/20 09:03 Dose: Not Given Documented by: Cefepime HCl 2 gm/ Sodium (Chloride) 100 mls @ 200 mls/hr IVPB 0600,1800 [facility] Last Admin: 11/01/20 05:03 Dose: 100 mls Documented by: Azithromycin 500 mg/ Sodium (Chloride) 250 mls @ 250 mls/hr IVPB Q24HR [facility] Last Admin: 11/01/20 09:04 Dose: 250 mls Documented by: Lorazepam (Lorazepam 2 Mg/Ml Vial) 1 mg SLOW IVP Q8H PRN PRN Reason: Anxiety Last Admin: 11/01/20 10:06 Dose: 1 mg Documented by: Nicotine (Nicotine 14 Mg Patch) 14 mg TD Q24HR [facility] Last Admin: 11/01/20 09:10 Dose: Not Given Documented by: Ondansetron HCl (Ondansetron Pf 4 Mg/2 Ml Vial) 4 mg IVP Q6H PRN PRN Reason: Nausea/Vomiting Pantoprazole Sodium (Pantoprazole 40 Mg Tab) 40 mg PO DAILY [facility] Last Admin: 11/01/20 09:03 Dose: 40 mg Documented by: Sacubitril/Valsartan (Sacubitril 24mg/Valsartan 26mg Tab) 1 tab PO BID [facility] Last Admin: 11/01/20 09:10 Dose: 1 tab Documented by: Sodium Chloride (Flush - Normal Saline 10 Ml Syringe) 10 ml IVF PRN PRN PRN Reason: Saline Flush Vital Signs & Weight: Vital Signs Temp Pulse Resp BP Pulse Ox 11/01/20 01:00 98.1 F 94 L 10/31/20 23:15 160 H 20 124/89 91 L Admit Weight 2.078 oz Weight 134 lb - Quality Measures Condition: Heart Failure CV meds: Beta Joanie: Yes, NICOLE/ARB: Yes, ASA: Yes, Plavix/Effient/Brilinta: No, Anticoagulant: No - Medication Contraindications No Anticoagulant reason: Medical contraindication - Physical Exam General: alert & oriented x3, no apparent distress Neck: no JVD/HJR Cardiac: regular rate and rhythm Lungs: clear to auscultation, no wheezes, no rales, no rhonchi, other (hemoptysis.) Neuro: grossly intact Abdomen: unremarkable Extremities: no edema Musculoskeletal: normal range of motion - Labs Result Diagrams: 11/01/20 03:06 11/01/20 03:06 - Telemetry Sinus rhythms and dysrhythmias: sinus tachycardia - Assessment/Plan Assessment/Plan: 1. Hemoptysis: Patient continues with hemoptysis since being admitted to the hospital. We stopped his Eliquis. Added Protonix daily. He may need a GI consult if this continues or if he begins having hematemesis, but this may be pulmonary related d/t his previous history of starting OAC and MAC and other chroninc lung scarring as seen on his chest CT. He is scheduled to have a Pulmonary consult today, he is requesting to see Dr. Penaloza as his family is well-established with him. I will also start him back on a heart healthy, low-sodium diet as it is unlikely that any other procedures will be done today and he has had no evidence of hematemesis. 2. Cardiomyopathy and decresed EF: he is wearing his life vest and is on a beta joanie as well as Entresto, Aspirin and Lasix. He is scheduled for an ECHO outpatient and also sees cardiac rehab and Dr. Pablo with the heart failure clinic. We will continue to monitor.
--- NOTE | 2020-11-01 14:31 | PDOC.HOSPP ---
- Subjective Encounter Date: 11/01/20 Encounter Time: 09:15 Subjective: Patient had episode of hemoptysis this morning as well. He sees a hemoglobin is stable. Plan is discussed with the patient and the family at bedside. He looks quite fatigued but alert oriented x3. Will discontinue the aspirin - Objective Vital Signs & Weight: Vital Signs (12 hours) Temp Pulse Ox 11/01/20 11:30 97.1 F L 11/01/20 08:00 94 L Weight Admit Weight 2.078 oz Weight 134 lb Most Recent Monitor Data Heart Rate from ECG 153 NIBP 84/49 NIBP BP-Mean 60 Respiration from ECG 19 SpO2 96 I&O: 10/31/20 11/01/20 11/02/20 06:59 06:59 06:59 Intake Total 304 Output Total 1100 Balance -796 Result Diagrams: 11/01/20 03:06 11/01/20 03:06 Hospitalist ROS - Medication Medications: Active Medications Generic Name Dose Route Start Last Admin Trade Name Freq PRN Reason Stop Dose Admin Aspirin 81 mg 10/31/20 09:00 11/01/20 09:03 Aspirin 81 Mg Enteric Coated Tablet PO 81 mg DAILY SHER Administration Carvedilol 6.25 mg 10/31/20 17:00 11/01/20 09:10 Carvedilol 3.125 Mg Tab PO Not Given BID-WM SHER Furosemide 40 mg 10/31/20 09:00 11/01/20 09:03 Furosemide 40 Mg Tab PO Not Given DAILY SHER Cefepime HCl 2 gm/ Sodium 100 mls @ 200 mls/hr 10/31/20 18:00 11/01/20 05:03 Chloride IVPB 100 mls 0600,1800 SHER Administration Azithromycin 500 mg/ Sodium 250 mls @ 250 mls/hr 11/01/20 09:00 11/01/20 09:04 Chloride IVPB 250 mls Q24HR SHER Administration Lorazepam 1 mg 11/01/20 09:25 11/01/20 10:06 Lorazepam 2 Mg/Ml Vial SLOW IVP 1 mg Q8H PRN Administration Anxiety Nicotine 14 mg 10/31/20 09:00 11/01/20 09:10 Nicotine 14 Mg Patch TD Not Given Q24HR SHER Pantoprazole Sodium 40 mg 11/01/20 09:00 11/01/20 09:03 Pantoprazole 40 Mg Tab PO 40 mg DAILY SHER Administration Sacubitril/Valsartan 1 tab 10/31/20 09:00 11/01/20 09:10 Sacubitril 24mg/Valsartan 26mg Tab PO 1 tab BID SHER Administration - Exam General Appearance: NAD, awake alert Eye: PERRL ENT: normocephalic atraumatic Neck: supple Heart: RRR Respiratory: CTAB, normal chest expansion Gastrointestinal: soft, normal bowel sounds Neurological: cranial nerve grossly intact, no focal deficits Musculoskeletal: normal tone Psychiatric: normal affect, A&O x 3 Hosp A/P - Plan 45-year-old male with 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 Hemoptysis Prior history of MAC which was treated approximately [address] Vasques[address] -cefepime, azithromycin -hold ASA, eliquis Sputum culture -Pulmonary on board Idiopathic cardiomyopathy - EF less than 15%. Patient has LifeVest in place. -recent heart cath which only showed a 50% stenosis of the RCA. -Questionable - cardiomyopathy d/t viral versus alcohol induced. -on Entresto, Coreg, aspirin and Lasix as well as newly started on Eliquis. IVC thrombus Recent admission with new onset heart failure and incidental IVC "pre-thrombus". Patient started on Eliquis 4 days prior to admission presumably for this. -Questionable thrombus--anticoagulation started probably for low EF versus thrombus or could be artifact in the IVC - it appears based on Jose's conversation with there is no evidence of IVC thrombosis. - Will hold Eliquis given continued hemoptysis . active Tobacco use -activities counselor on smoking cessation -Nicotine patch Alcohol use History of daily alcohol abuse -ativan PRN Full code
[2020-11-01 15:32] LABS: Hemoglobin 11.2 g/dL (14.0-18.0)
[2020-11-01] MEDS: HYDROcodone/Chlorphen Polis 5 ML UDCUP PO PRN (22:07)
[2020-11-02] MEDS: Lorazepam 2 MG/ML VIAL SLOW IVP PRN ×3 (02:00→18:07)
[2020-11-02] MEDS: Cefepime 2 GM in Sodium Chloride 0.9% 100 ML IVPB SCH ×2 (05:39→18:07)
[2020-11-02 08:47] LABS: #Basophils 0.1 thou/uL (0.0-0.2); #Eosinphils 0.5 thou/uL (0.0-0.7); #Lymphocytes 1.6 thou/uL (1.20-3.40); #Monocytes 0.8 thou/uL (0.11-0.59); #Neutrophils 5.2 thou/uL (1.40-6.50); %Basophils 0.8 % (0.0-1.0); %Eosinophils 5.9 % (0.0-10.0); %Lymphocytes 19.5 % (21.0-51.0); %Monocytes 9.8 % (0.0-10.0); %Neutrophils 64.1 % (42.0-75.0); Hemoglobin 10.3 g/dL (14.0-18.0); Mean Corpuscular HGB CONC 34.7 g/dL (32.0-36.0); Mean Corpuscular Hemoglobin 32.4 pg (27.0-31.0); Mean Corpuscular Volume 93.3 fL (78.0-98.0); Mean Platelet Volume 7.3 fL (7.4-10.4); Platelet Count 177 thou/uL (130-400); RBC Distribution Width 12.1 % (11.5-14.5); Red Blood Cell (RBC) Count 3.18 mill/uL (4.70-6.10)
[2020-11-02 09:02] LABS: Anion Gap 11 mmol/L (10-20); BUN (Urea Nitrogen) 23 mg/dL (8.9-20.6); Calc. Creatinine Clearance 100 mL/min (70-130); Carbon Dioxide 26 mmol/L (22-29); Chloride 106 mmol/L (98-107); Glucose 84 mg/dL (70-105); Potassium 3.8 mmol/L (3.5-5.1); Sodium 139 mmol/L (136-145)
--- NOTE | 2020-11-02 09:27 | PRG ---
DATE OF SERVICE: 11/02/2020 SUBJECTIVE: The patient has had no hemoptysis overnight. He did require 2 units transfused yesterday. OBJECTIVE: VITAL SIGNS: His temperature is 98.5, pulse is 87, blood pressure is 83/60. HEENT: Unremarkable. NECK: No adenopathy or JVD. LUNGS: Clear. CARDIAC: S1 and S2. Regular. ABDOMEN: Soft. EXTREMITIES: No edema. LABORATORY: Sodium 139, potassium 3.8, chloride 106, CO2 of 26, BUN 23, creatinine 0.8, glucose 84. White blood cell count 8, hemoglobin 10, hematocrit 29.7, and platelet count 177. ASSESSMENT: 1. Status post massive hemoptysis from anticoagulation and underlying lung disease. 2. Emphysema. 3. Cardiomyopathy. PLAN: 1. Would withhold anticoagulation indefinitely. 2. Continue to monitor his H and H with a repeat CBC tomorrow. Job ID: [id number]
[2020-11-02] MEDS: Guaifenesin DM 100-10/5 ML UDCUP PO PRN ×4 (10:11→21:31)
[2020-11-02] MEDS: Nicotine 14 MG PATCH TD SCH (10:16)
[2020-11-02] MEDS: Carvedilol 3.125 MG TAB PO SCH ×2 (10:17→18:04)
[2020-11-02] MEDS: Azithromycin 500 MG in Sodium Chloride 0.9% 250 ML 250 ML IVPB SCH (10:17)
[2020-11-02] MEDS: Furosemide 40 MG TAB PO SCH (10:17)
[2020-11-02] MEDS: HYDROcodone/Chlorphen Polis 5 ML UDCUP PO PRN (15:28)
--- NOTE | 2020-11-02 17:04 | PDOC.HOSPP ---
- Subjective Encounter Date: 11/02/20 Encounter Time: 09:45 Subjective: Patient looks quite lethargic. He did have another episode of small hematemesis. Family believe mother at bedside. Pulmonary note reviewed. - Objective Vital Signs & Weight: Vital Signs (12 hours) Temp Pulse Ox 11/02/20 15:57 98.3 F 11/02/20 11:23 98.2 F 11/02/20 08:00 97 11/02/20 07:00 98.5 F 11/02/20 05:37 97.7 F Weight Admit Weight 2.078 oz Weight 134 lb Most Recent Monitor Data Heart Rate from ECG 103 NIBP 94/68 NIBP BP-Mean 76 Respiration from ECG 30 SpO2 97 I&O: 11/01/20 11/02/20 11/03/20 06:59 06:59 06:59 Intake Total 845 700 Output Total 1600 Balance -755 700 Result Diagrams: 11/02/20 08:11 11/02/20 08:11 Hospitalist ROS - Medication Medications: Active Medications Generic Name Dose Route Start Last Admin Trade Name Freq PRN Reason Stop Dose Admin Carvedilol 6.25 mg 10/31/20 17:00 11/02/20 10:17 Carvedilol 3.125 Mg Tab PO Not Given BID-WM SHER Chlorphenir/Hydrocodone Polistirex 5 ml 11/01/20 17:09 11/02/20 15:28 Hydrocodone/Chlorphen Polis 5 Ml Udcup PO 5 ml Q12H PRN Administration Cough Furosemide 40 mg 10/31/20 09:00 11/02/20 10:17 Furosemide 40 Mg Tab PO Not Given DAILY SHER Guaifenesin/Dextromethorphan 15 ml 11/01/20 17:09 11/02/20 14:36 Guaifenesin Dm 100-10/5 Ml Udcup PO 15 ml Q4H PRN Administration Cough Cefepime HCl 2 gm/ Sodium 100 mls @ 200 mls/hr 10/31/20 18:00 11/02/20 05:39 Chloride IVPB 100 mls 0600,1800 SHER Administration Azithromycin 500 mg/ Sodium 250 mls @ 250 mls/hr 11/01/20 09:00 11/02/20 10:17 Chloride IVPB 250 mls Q24HR SHER Administration Lorazepam 1 mg 11/01/20 09:25 11/02/20 10:15 Lorazepam 2 Mg/Ml Vial SLOW IVP 1 mg Q8H PRN Administration Anxiety Nicotine 14 mg 10/31/20 09:00 11/02/20 10:16 Nicotine 14 Mg Patch TD Not Given Q24HR [facility]ER Pantoprazole Sodium 40 mg 11/01/20 09:00 11/02/20 10:16 Pantoprazole 40 Mg Tab PO 40 mg DAILY SHER Administration Sacubitril/Valsartan 1 tab 10/31/20 09:00 11/02/20 10:16 Sacubitril 24mg/Valsartan 26mg Tab PO 1 tab BID SHER Administration - Exam General Appearance: NAD, awake alert Eye: PERRL ENT: normocephalic atraumatic Neck: supple, symmetric, no lymphadenopathy Heart: RRR, normal peripheral pulses Respiratory: CTAB, normal chest expansion Gastrointestinal: soft, normal bowel sounds Neurological: cranial nerve grossly intact Psychiatric: A&O x 3 Hosp A/P - Plan 45-year-old male with 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 Hemoptysis Prior history of MAC which was treated approximately [address] Vasques[address] -cefepime, azithromycin -hold ASA, eliquis Sputum culture -Pulmonary on board Idiopathic cardiomyopathy - EF less than 15%. Patient has LifeVest in place. -recent heart cath which only showed a 50% stenosis of the RCA. -Questionable - cardiomyopathy d/t viral versus alcohol induced. -on Entresto, Coreg, aspirin and Lasix as well as newly started on Eliquis. -----------> Eliquis will be discontinued indefinitely. IVC thrombus Recent admission with new onset heart failure and incidental IVC "pre-thrombus". Patient started on Eliquis 4 days prior to admission presumably for this. -Questionable thrombus--anticoagulation started probably for low EF versus thrombus or could be artifact in the IVC - it appears based on Jose's conversation with there is no evidence of IVC thrombosis. - Will hold Eliquis given continued hemoptysis . active Tobacco use -trauma counsellor on smoking cessation -Nicotine patch Alcohol use History of daily alcohol abuse -ativan PRN Full code Stable hemoglobin today. Continue monitoring in the IMCU -likely can transfer to telemetry bed tomorrow.
[2020-11-03] MEDS: Guaifenesin DM 100-10/5 ML UDCUP PO PRN ×5 (01:41→17:17)
[2020-11-03] MEDS: Lorazepam 2 MG/ML VIAL SLOW IVP PRN ×3 (01:42→17:17)
[2020-11-03 03:59] LABS: #Basophils 0.1 thou/uL (0.0-0.2); #Eosinphils 0.4 thou/uL (0.0-0.7); #Lymphocytes 1.3 thou/uL (1.20-3.40); #Monocytes 0.9 thou/uL (0.11-0.59); #Neutrophils 4.5 thou/uL (1.40-6.50); %Basophils 0.9 % (0.0-1.0); %Eosinophils 5.7 % (0.0-10.0); %Lymphocytes 18.5 % (21.0-51.0); %Monocytes 11.9 % (0.0-10.0); Hemoglobin 9.4 g/dL (14.0-18.0); Mean Corpuscular HGB CONC 35.4 g/dL (32.0-36.0); Mean Corpuscular Volume 93.2 fL (78.0-98.0); Mean Platelet Volume 7.5 fL (7.4-10.4); Platelet Count 173 thou/uL (130-400); RBC Distribution Width 12.1 % (11.5-14.5); Red Blood Cell (RBC) Count 2.85 mill/uL (4.70-6.10); White Blood Cell (WBC) Count 7.1 thou/uL (4.8-10.8)
[2020-11-03 04:26] LABS: Anion Gap 9 mmol/L (10-20); BUN (Urea Nitrogen) 15 mg/dL (8.9-20.6); Calc. Creatinine Clearance 115 mL/min (70-130); Calcium 7.7 mg/dL (7.8-10.44); Carbon Dioxide 24 mmol/L (22-29); Chloride 105 mmol/L (98-107); Glucose 86 mg/dL (70-105); Potassium 3.6 mmol/L (3.5-5.1); Sodium 134 mmol/L (136-145)
[2020-11-03] MEDS: Cefepime 2 GM in Sodium Chloride 0.9% 100 ML IVPB SCH ×2 (05:23→17:17)
[2020-11-03] MEDS: Carvedilol 3.125 MG TAB PO SCH ×2 (08:52→17:16)
[2020-11-03] MEDS: Azithromycin 500 MG in Sodium Chloride 0.9% 250 ML 250 ML IVPB SCH (08:52)
[2020-11-03] MEDS: Furosemide 20 MG TAB PO SCH (08:52)
[2020-11-03] MEDS: Nicotine 14 MG PATCH TD SCH (08:59)
[2020-11-03] MEDS: HYDROcodone/Chlorphen Polis 5 ML UDCUP PO PRN (09:19)
--- NOTE | 2020-11-03 09:55 | PRG ---
DATE OF SERVICE: 11/03/2020 SUBJECTIVE: He has coughed up some old blood in the last 24 hours, but overall his hemoptysis has slowed down immensely. OBJECTIVE: VITAL SIGNS: Temperature 97.6, pulse 88, blood pressure 88/54. HEENT: Unremarkable. NECK: No JVD. CHEST: Clear. CARDIAC: S1 and S2. Regular. ABDOMEN: Soft. EXTREMITIES: No edema. LABORATORY DATA: Sodium 136, potassium 3.6, chloride 105, CO2 of 24, BUN 15, creatinine 0.7, glucose 86. White blood cell count 7.1, hematocrit 26.5, and platelet count 173. ASSESSMENT: 1. Hemoptysis after anticoagulation. Recommendation would not anticoagulate this patient. 2. His hemoglobin seems to have stabilized. 3. Can likely go home by tomorrow if all are in agreement. Job ID: [id number]
--- NOTE | 2020-11-03 14:50 | PDOC.CPN ---
- Subjective Date: 11/03/20 Time: 14:50 Interval history: No overnight events, patient states hemoptysis is getting better, he states he only coughed up a very small amount of blood-tinged sputum today. He states he feels better today. Denies chest pain or shortness of breath. - Review of Systems General: denies: fever/chills, weight/appetite/sleep changes, night sweats, fatigue Respiratory: reports: cough Cardiovascular: denies: chest pain, palpitation, edema, paroxysmal nocturnal dyspnea, orthopnea Gastrointestinal: denies: nausea, vomiting, diarrhea, constipation, abd pain, GI bleeding Musculoskeletal: denies: pain, tenderness, stiffness, swelling, arthritis/arthralgias Neurological: denies: numbness, syncope, seizure, weakness - Objective Allergies/Adverse Reactions: Allergies Allergy/AdvReac Type Severity Reaction Status Date / Time Penicillins Allergy Verified 08/27/20 00:06 Sulfa (Sulfonamide Allergy Verified 08/27/20 00:07 Antibiotics) Visit Medications: Current Medications Acetaminophen (Acetaminophen 325 Mg Tab) 650 mg PO Q4H PRN PRN Reason: Headache/Fever/Mild Pain (1-3) Acetaminophen (Acetaminophen 650 Mg Suppository) 650 mg FL Q4H PRN PRN Reason: Headache/Fever/Mild Pain (1-3) Carvedilol (Carvedilol 3.125 Mg Tab) 3.125 mg PO BID-[facility] Last Admin: 11/03/20 08:52 Dose: 3.125 mg Documented by: Chlorphenir/Hydrocodone Polistirex (Hydrocodone/Chlorphen Polis 5 Ml Udcup) 5 ml PO Q12H PRN PRN Reason: Cough Last Admin: 11/03/20 09:19 Dose: 5 ml Documented by: Furosemide (Furosemide 20 Mg Tab) 20 mg PO DAILY [facility] Last Admin: 11/03/20 08:52 Dose: 20 mg Documented by: Guaifenesin/Dextromethorphan (Guaifenesin Dm 100-10/5 Ml Udcup) 15 ml PO Q4H PRN PRN Reason: Cough Last Admin: 11/03/20 13:24 Dose: 15 ml Documented by: Cefepime HCl 2 gm/ Sodium (Chloride) 100 mls @ 200 mls/hr IVPB 0600,1800 [facility] Last Admin: 11/03/20 05:23 Dose: 100 mls Documented by: Azithromycin 500 mg/ Sodium (Chloride) 250 mls @ 250 mls/hr IVPB Q24HR [facility] Last Admin: 11/03/20 08:52 Dose: 250 mls Documented by: Lorazepam (Lorazepam 2 Mg/Ml Vial) 1 mg SLOW IVP Q8H PRN PRN Reason: Anxiety Last Admin: 11/03/20 09:19 Dose: 1 mg Documented by: Nicotine (Nicotine 14 Mg Patch) 14 mg TD Q24HR [facility] Last Admin: 11/03/20 08:59 Dose: Not Given Documented by: Ondansetron HCl (Ondansetron Pf 4 Mg/2 Ml Vial) 4 mg IVP Q6H PRN PRN Reason: Nausea/Vomiting Pantoprazole Sodium (Pantoprazole 40 Mg Tab) 40 mg PO DAILY [facility] Last Admin: 11/03/20 08:52 Dose: 40 mg Documented by: Sacubitril/Valsartan (Sacubitril 24mg/Valsartan 26mg Tab) 1 tab PO BID [facility] Last Admin: 11/03/20 08:52 Dose: 1 tab Documented by: Sodium Chloride (Flush - Normal Saline 10 Ml Syringe) 10 ml IVF PRN PRN PRN Reason: Saline Flush Vital Signs & Weight: Vital Signs Temp Pulse Ox 11/03/20 11:29 98 11/03/20 11:00 98.2 F 11/03/20 08:00 99 11/03/20 07:53 97.6 F 11/03/20 03:56 97.4 F L Admit Weight 2.078 oz Weight 134 lb - Quality Measures Condition: Heart Failure CV meds: Beta Joanie: Yes, NICOLE/ARB: Yes, ASA: Yes, Plavix/Effient/Brilinta: No, Anticoagulant: No - Medication Contraindications No Anticoagulant reason: Medical contraindication - Physical Exam General: alert & oriented x3, appears well, no apparent distress HEENT: normocephaly Neck: supple neck, no JVD/HJR, no bruit Cardiac: regular rate and rhythm, no murmur Lungs: normal breath sounds, no wheeze, rales, rhonchi Neuro: grossly intact Abdomen: active bowel sounds, soft, non-tender Extremities: no cyanosis, no clubbing, no edema Skin: clear Musculoskeletal: normal range of motion, no pain, no fluid collection - Labs Result Diagrams: 11/03/20 03:23 11/03/20 03:23 - EKG Interpretation EKG Method: Telemetry EKG: sinus rhythm - Assessment/Plan Assessment/Plan: 1. Hemoptysis: Patient doing much better today, he states he only coughed up a very small amount of blood-tinged sputum today. He received 2 units of PRBC's yesterday. 2. Cardiomyopathy and decresed EF: he is wearing his life vest and is on a beta joanie as well as Entresto, Aspirin and Lasix. He is scheduled for an ECHO outpatient and also sees cardiac rehab and Dr. Pablo with the heart failure clinic. We will continue to monitor. Cardiology will sign off at this time. He has an outpatient office visit scheduled with Dr. López with Echocardiogram. Please have patient schedule follow-up appointment with the heart failure clinic. i agree with the A/P by the [employer]. Okay to d/c from a cardiac standpoint. comfort
--- NOTE | 2020-11-03 16:43 | PDOC.HOSPP ---
- Subjective Encounter Date: 11/03/20 Encounter Time: 11:45 Subjective: Patient did not had any further hemoptysis this morning however he did had him hemoptysis last night. - Objective Vital Signs & Weight: Vital Signs (12 hours) Temp Pulse Ox 11/03/20 15:00 97.8 F 11/03/20 11:29 98 11/03/20 11:00 98.2 F 11/03/20 08:00 99 11/03/20 07:53 97.6 F Weight Admit Weight 2.078 oz Weight 134 lb Most Recent Monitor Data Heart Rate from ECG 87 NIBP 79/57 NIBP BP-Mean 64 Respiration from ECG 21 SpO2 97 I&O: 11/02/20 11/03/20 11/04/20 06:59 06:59 06:59 Intake Total 700 1550 Output Total 800 Balance 700 750 Result Diagrams: 11/03/20 03:23 11/03/20 03:23 Hospitalist ROS - Medication Medications: Active Medications Generic Name Dose Route Start Last Admin Trade Name Freq PRN Reason Stop Dose Admin Carvedilol 3.125 mg 11/03/20 08:00 11/03/20 08:52 Carvedilol 3.125 Mg Tab PO 3.125 mg BID-[facility] Administration Chlorphenir/Hydrocodone Polistirex 5 ml 11/01/20 17:09 11/03/20 09:19 Hydrocodone/Chlorphen Polis 5 Ml Udcup PO 5 ml Q12H PRN Administration Cough Furosemide 20 mg 11/03/20 09:00 11/03/20 08:52 Furosemide 20 Mg Tab PO 20 mg DAILY [facility] Administration Guaifenesin/Dextromethorphan 15 ml 11/01/20 17:09 11/03/20 13:24 Guaifenesin Dm 100-10/5 Ml Udcup PO 15 ml Q4H PRN Administration Cough Cefepime HCl 2 gm/ Sodium 100 mls @ 200 mls/hr 10/31/20 18:00 11/03/20 05:23 Chloride IVPB 100 mls 0600,1800 [facility] Administration Azithromycin 500 mg/ Sodium 250 mls @ 250 mls/hr 11/01/20 09:00 11/03/20 08:52 Chloride IVPB 250 mls Q24HR [facility] Administration Lorazepam 1 mg 11/01/20 09:25 11/03/20 09:19 Lorazepam 2 Mg/Ml Vial SLOW IVP 1 mg Q8H PRN Administration Anxiety Nicotine 14 mg 10/31/20 09:00 11/03/20 08:59 Nicotine 14 Mg Patch TD Not Given Q24HR [facility] Pantoprazole Sodium 40 mg 11/01/20 09:00 11/03/20 08:52 Pantoprazole 40 Mg Tab PO 40 mg DAILY [facility] Administration Sacubitril/Valsartan 1 tab 10/31/20 09:00 11/03/20 08:52 Sacubitril 24mg/Valsartan 26mg Tab PO 1 tab BID [facility] Administration Hosp A/P - Plan 45-year-old male with 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 Hemoptysis Prior history of MAC which was treated approximately [address] Vasques. -cefepime, azithromycin -hold ASA, eliquis Sputum culture -Pulmonary on board Idiopathic cardiomyopathy - EF less than 15%. Patient has LifeVest in place. -recent heart cath which only showed a 50% stenosis of the RCA. -Questionable - cardiomyopathy d/t viral versus alcohol induced. -on Entresto, Coreg, aspirin and Lasix as well as newly started on Eliquis.-----------> Eliquis will be discontinued indefinitely. IVC thrombus Recent admission with new onset heart failure and incidental IVC "pre-thrombus". Patient started on Eliquis 4 days prior to admission presumably for this. -Questionable thrombus--anticoagulation started probably for low EF versus thrombus or could be artifact in the IVC - it appears based on Jose's conversation with there is no evidence of IVC thrombosis. - Will hold Eliquis given continued hemoptysis . 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 - can go to medical bed plan for dc in am, if no further hemoptysis. Patient will follow with Dr. López Repeat echo during his visit
[2020-11-04] MEDS: Lorazepam 2 MG/ML VIAL SLOW IVP PRN (00:15)
[2020-11-04] MEDS: Guaifenesin DM 100-10/5 ML UDCUP PO PRN ×3 (00:16→10:43)
[2020-11-04 06:01] LABS: #Eosinphils 0.3 thou/uL (0.0-0.7); #Lymphocytes 1.1 thou/uL (1.20-3.40); #Monocytes 0.6 thou/uL (0.11-0.59); #Neutrophils 3.6 thou/uL (1.40-6.50); %Basophils 0.7 % (0.0-1.0); %Eosinophils 5.8 % (0.0-10.0); %Lymphocytes 19.6 % (21.0-51.0); %Monocytes 11.2 % (0.0-10.0); %Neutrophils 62.7 % (42.0-75.0); Mean Corpuscular HGB CONC 35.6 g/dL (32.0-36.0); Mean Corpuscular Hemoglobin 33.7 pg (27.0-31.0); Mean Corpuscular Volume 94.6 fL (78.0-98.0); Mean Platelet Volume 7.3 fL (7.4-10.4); Platelet Count 174 thou/uL (130-400); RBC Distribution Width 11.8 % (11.5-14.5); Red Blood Cell (RBC) Count 2.67 mill/uL (4.70-6.10); White Blood Cell (WBC) Count 5.8 thou/uL (4.8-10.8)
[2020-11-04] MEDS: Cefepime 2 GM in Sodium Chloride 0.9% 100 ML IVPB SCH (06:22)
[2020-11-04 06:25] LABS: Anion Gap 10 mmol/L (10-20); BUN (Urea Nitrogen) 8 mg/dL (8.9-20.6); Calc. Creatinine Clearance 123 mL/min (70-130); Carbon Dioxide 26 mmol/L (22-29); Chloride 103 mmol/L (98-107); Glucose 86 mg/dL (70-105); Potassium 3.1 mmol/L (3.5-5.1); Sodium 136 mmol/L (136-145)
[2020-11-04] MEDS: HYDROcodone/Chlorphen Polis 5 ML UDCUP PO PRN (08:40)
[2020-11-04] MEDS: Furosemide 20 MG TAB PO SCH (08:42)
[2020-11-04] MEDS: Carvedilol 3.125 MG TAB PO SCH (08:42)
[2020-11-04] MEDS: Nicotine 14 MG PATCH TD SCH (08:43)
[2020-11-04] MEDS: Azithromycin 500 MG in Sodium Chloride 0.9% 250 ML 250 ML IVPB SCH (08:44)
--- NOTE | 2020-11-04 10:26 | PRG ---
DATE OF SERVICE: 11/04/2020 SUBJECTIVE: The patient has had no more hemoptysis overnight. Feels good. No complaints. OBJECTIVE: VITAL SIGNS: Temperature 98.3, pulse 80, respirations 18, O2 saturation 93%. HEENT: Unremarkable. NECK: No JVD. CHEST: Fairly clear anteriorly. CARDIAC: S1 and S2, regular. ABDOMEN: Soft. EXTREMITIES: No edema. LABORATORY DATA: Hemoglobin 9, hematocrit 25.2. ASSESSMENT: Status post massive hemoptysis after anticoagulation. PLAN: I think, he is safe to be discharged. I would avoid anticoagulation in the future. Job ID: [id number]
[2020-11-04 13:12] VITALS: BP 88/59; TEMP 98.1
--- NOTE | 2020-11-05 18:29 | DIS ---
DATE OF ADMISSION: 11/01/2020 DATE OF DISCHARGE: 11/04/2020 DISCHARGE DISPOSITION: Home. 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 PROCEDURES DONE DURING HOSPITALIZATION: CT angio chest done on the day of admission showed emphysematous changes in both lungs. There was severe scarring with cavitation in the left upper lung. There is opacity in the left lingula. Discharge white count of 5, H and H of 9 and 25, platelet count 174. DISCHARGE MEDICATIONS: 1. Carvedilol 3.125 mg twice daily. 2. Aspirin 81 mg p.o. daily. 3. Entresto 24/26 mg p.o. one tablet twice daily. 4. Lasix 20 mg daily. ALLERGIES: ALLERGIC TO PENICILLIN AND SULFA. DISCHARGE PLAN: The patient to follow up with Heart Failure clinic/Dr. Pablo in 1 week. He needs to follow up with his primary care physician, Paola Echeverria in 1 week. BRIEF COURSE DURING HOSPITALIZATION: The patient initially got admitted on the with complaints of blood in his sputum. He was on Eliquis for suspected thrombus in his IVC. This has been ruled out during his stay here. 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 Out of abundance of caution, the patient received two units of packed cell transfusion. His H and H have remained stable. The patient's hemoptysis has completely resolved after stopping Eliquis. He had known ejection fraction of 15% with cardiomyopathy and has a LifeVest on. He has a followup appointment to see Dr. Squires in a month for possible AICD with biventricular pacer if his ejection fraction remains low. The patient has a history of Mycobacterium avium complex infection from last 8 years or so and will follow up with Dr. Vasques in the outpatient setting. He was evaluated by Dr. López and his Eliquis has been discontinued. Dr. Penaloza from Pulmonology has evaluated the patient as well. At the time of discharge, he is ambulating and eating well. He is hemodynamically stable and will be shortly discharged home. Please note, I have seen and examined the patient on the day of discharge. Job ID: [id number] [facility]
== END 2020-11-04 13:07 | disposition home or self-care (01) | DRG 813 ==
LOC: ERS 05:35 → SURG A 06:42 → OBSVTOIN 11-01 00:21 → CCU 11-01 00:46 → IMCU/EMU 11-01 07:58 → T4-B 11-03 18:45
PROVIDERS: ADMIT Internal Medicine; ATTEND Internal Medicine
PROC: 30233N1 Transfusion of Nonautologous Red Blood Cells into Peripheral Vein, Percutaneous Approach (ICD-10-PCS; principal; 2020-11-01)
DX: D68.32 Hemorrhagic disorder due to extrinsic circulating anticoagulants (principal); R04.2 Hemoptysis; I42.8 Other cardiomyopathies; A31.2 Disseminated mycobacterium avium-intracellulare complex (DMAC); I10 Essential (primary) hypertension; F17.220 Nicotine dependence, chewing tobacco, uncomplicated; T45.515A Adverse effect of anticoagulants, initial encounter; J43.9 Emphysema, unspecified; F10.11 Alcohol abuse, in remission; E78.5 Hyperlipidemia, unspecified; Z79.01 Long term (current) use of anticoagulants; Z79.82 Long term (current) use of aspirin; Z88.0 Allergy status to penicillin; Z88.2 Allergy status to sulfonamides; Z71.6 Tobacco abuse counseling
CPT/HCPCS: 36415; 36430; 71275; 80048; 85025; 86850; 86900; 86901; 96365; 96375; 96376; C9132; G0378; J0456; J0692; J2060; J2930; J3490; J7050; P9016; Q9967

== ENCOUNTER 2022-07-27 07:36 | Outpatient (CLI) | payer OTHER ==
[2022-07-27] MEDS ORDERED: Iopamidol 370 76% 100 ML VIAL ONE (15:54)
== END 2022-07-27 07:37 | disposition home or self-care (01) ==
LOC: CT 07:36
PROVIDERS: ATTEND Surgery
DX: I23.6 Thrombosis of atrium, auricular appendage, and ventricle as current complications following acute myocardial infarction (principal); I70.8 Atherosclerosis of other arteries; I70.0 Atherosclerosis of aorta; N21.0 Calculus in bladder; J43.9 Emphysema, unspecified; J98.4 Other disorders of lung
CPT/HCPCS: 71275; 74174; 93880; Q9967

== ENCOUNTER 2022-11-14 03:30 | Inpatient (IN) | payer OTHER ==
[2022-11-14 04:10] LABS: #Eosinphils 0.2 thou/uL (0.0-0.7); #Lymphocytes 1.9 thou/uL (1.20-3.40); #Monocytes 0.8 thou/uL (0.11-0.59); #Neutrophils 6.1 thou/uL (1.40-6.50); %Basophils 0.4 % (0.0-1.0); %Eosinophils 1.7 % (0.0-10.0); %Lymphocytes 21.1 % (21.0-51.0); %Monocytes 8.7 % (0.0-10.0); %Neutrophils 68.1 % (42.0-75.0); Hemoglobin 16.4 g/dL (14.0-18.0); Mean Corpuscular HGB CONC 34.6 g/dL (32.0-36.0); Mean Corpuscular Hemoglobin 32.2 pg (27.0-31.0); Mean Corpuscular Volume 92.8 fl (78.0-98.0); Mean Platelet Volume 7.7 fL (7.4-10.4); Platelet Count 274 10x3/uL (130-400); RBC Distribution Width 14.7 % (11.5-14.5); Red Blood Cell (RBC) Count 5.11 mill/uL (4.70-6.10)
[2022-11-14] MEDS ORDERED: Tenecteplase 50 MG ONE (04:16)
[2022-11-14 04:24] LABS: Prothrombin Time 13.8 sec (12.0-14.7)
[2022-11-14 04:25] LABS: PTT 37.5 sec (22.9-36.1)
[2022-11-14 04:34] LABS: ALT (SGPT) 8 U/L (8-55); AST (SGOT) 12 U/L (5-34); Albumin 3.8 g/dL (3.5-5.0); Alkaline Phosphatase 100 U/L (40-110); Anion Gap 14 mmol/L (10-20); BUN (Urea Nitrogen) 7 mg/dL (8.9-20.6); Bilirubin, Total 0.5 mg/dL (0.2-1.2); CK (CPK) 64 U/L (30-200); Calc. Creatinine Clearance 0 mL/min (70-130); Calcium 8.8 mg/dL (7.8-10.44); Carbon Dioxide 19 mmol/L (22-29); Chloride 106 mmol/L (98-107); Estimated GFR 98; Glucose 82 mg/dL (70-105); Potassium 3.7 mmol/L (3.5-5.1); Protein, Total 6.8 g/dL (6.0-8.3); Sodium 135 mmol/L (136-145)
[2022-11-14] MEDS ORDERED: niCARdipine 25 MG in Sodium Chloride 0.9% 250 ML 250 ML IVPB PRN (06:32)
[2022-11-14] MEDS ORDERED: Communication Order-Pharmacy FS SCH (06:32)
[2022-11-14 07:11] LABS: Amphetamine Not Detected (NotDetected); Barbiturates Screen Not Detected (NotDetected); Benzodiazepine Screen Not Detected (NotDetected); Cocaine Metabolite Screen Not Detected (NotDetected); Methadone Not Detected (NotDetected); Methamphetamine Not Detected (NotDetected); Opiate Screen Not Detected (NotDetected); Oxycodone Screen Not Detected (NotDetected); Phencyclidine (PCP) Not Detected (NotDetected); THC/Cannabinoid Screen Detected (NotDetected); Tricyclic Screen Not Detected (NotDetected)
[2022-11-14] MEDS ORDERED: Folic Acid 1 MG TAB ONE (09:16)
[2022-11-14] MEDS ORDERED: Thiamine 100 MG TAB ONE (09:16)
[2022-11-14] MEDS: Folic Acid 1 MG TAB PO SCH (09:20)
[2022-11-14] MEDS: Thiamine 100 MG TAB PO SCH (09:21)
[2022-11-14] MEDS ORDERED: Lactated Ringer's 1,000 ML IV SCH (10:45)
[2022-11-14] MEDS: hydrALAZINE 20 MG/ML VIAL SLOW IVP PRN (10:55)
[2022-11-14] MEDS: Multivitamin W/ Minerals 1 TAB PO SCH (13:04)
[2022-11-14] MEDS: Labetalol HCl 100 MG/20 ML VIAL SLOW IVP PRN ×2 (13:04→14:52)
[2022-11-14] MEDS ORDERED: Iopamidol 370 76% 100 ML VIAL ONE (13:19)
[2022-11-14] MEDS ORDERED: Metoprolol Tartrate 50 MG TAB PO SCH (13:30)
[2022-11-14 16:10] LABS: SARS-CoV-2 NAA Rapid Test Not Detected (NotDetected)
[2022-11-14] MEDS: Metoprolol Tartrate 50 MG TAB PO SCH (20:27)
[2022-11-14] MEDS: Atorvastatin Calcium 40 MG TAB PO SCH (20:27)
[2022-11-14] MEDS: Sacubitril 49 MG/Valsartan 51 MG TABLET PO SCH (20:27)
[2022-11-15 07:29] LABS: #Eosinphils 0.1 thou/uL (0.0-0.7); #Lymphocytes 1.5 thou/uL (1.20-3.40); #Monocytes 0.7 thou/uL (0.11-0.59); %Basophils 0.4 % (0.0-1.0); %Eosinophils 2.2 % (0.0-10.0); %Lymphocytes 22.8 % (21.0-51.0); %Monocytes 11.5 % (0.0-10.0); %Neutrophils 63.1 % (42.0-75.0); Hemoglobin 16.6 g/dL (14.0-18.0); Mean Corpuscular HGB CONC 32.8 g/dL (32.0-36.0); Mean Corpuscular Hemoglobin 30.6 pg (27.0-31.0); Mean Corpuscular Volume 93.4 fl (78.0-98.0); Mean Platelet Volume 7.6 fL (7.4-10.4); Platelet Count 236 10x3/uL (130-400); RBC Distribution Width 14.6 % (11.5-14.5); Red Blood Cell (RBC) Count 5.43 mill/uL (4.70-6.10); White Blood Cell (WBC) Count 6.4 10x3/uL (4.8-10.8)
[2022-11-15 07:45] LABS: Anion Gap 14 mmol/L (10-20); BUN (Urea Nitrogen) 7 mg/dL (8.9-20.6); Calc. Creatinine Clearance 115 mL/min (70-130); Calcium 9.3 mg/dL (7.8-10.44); Carbon Dioxide 20 mmol/L (22-29); Cardiac Risk 7.5 (Less than 4.5); Chloride 105 mmol/L (98-107); Cholesterol 166 mg/dl (< 200 Desired); Estimated GFR 114; Glucose 97 mg/dL (70-105); HDL Cholesterol 22 mg/dL (>60 Neg Risk); LDL Cholesterol, Calculated 117 mg/dL; Sodium 135 mmol/L (136-145); Triglycerides 135 mg/dL (Less than 150)
[2022-11-15] MEDS: Escitalopram Oxalate 10 mg Tablet PO SCH (08:10)
[2022-11-15] MEDS: Thiamine 100 MG TAB PO SCH (08:10)
[2022-11-15] MEDS: Folic Acid 1 MG TAB PO SCH (08:10)
[2022-11-15] MEDS: Multivitamin W/ Minerals 1 TAB PO SCH (08:10)
[2022-11-15] MEDS: Metoprolol Tartrate 50 MG TAB PO SCH ×2 (08:10→20:15)
[2022-11-15] MEDS ORDERED: FLU VACC QS2022-23(6MOS UP)/PF 60 MCG/0.5 ML SYRINGE IM ONE (09:00)
[2022-11-15] MEDS ORDERED: Enoxaparin Sodium 40 MG/0.4 ML SYRINGE SC SCH (11:00)
[2022-11-15] MEDS ORDERED: Aspirin 325 MG TAB PO SCH (11:00)
[2022-11-15] MEDS: Labetalol HCl 100 MG/20 ML VIAL SLOW IVP PRN ×2 (16:45→22:15)
[2022-11-15] MEDS ORDERED: oxyCODONE 5 MG TAB PO SCH (19:15)
[2022-11-15] MEDS: Acetaminophen 500 MG TAB PO SCH (20:14)
[2022-11-15] MEDS: Sacubitril 49 MG/Valsartan 51 MG TABLET PO SCH (20:15)
[2022-11-15] MEDS: Atorvastatin Calcium 40 MG TAB PO SCH (20:15)
[2022-11-16] MEDS: hydrALAZINE 20 MG/ML VIAL SLOW IVP PRN (00:34)
[2022-11-16] MEDS ORDERED: Lorazepam 2 MG/ML VIAL IM PRN (04:17)
[2022-11-16] MEDS ORDERED: Electrolyte Replacement Protocol 1 EACH FS SCH (04:30)
[2022-11-16] MEDS: Lorazepam 1 MG TAB PO PRN ×2 (04:33→20:50)
[2022-11-16 05:17] LABS: #Basophils 0.1 thou/uL (0.0-0.2); #Eosinphils 0.2 thou/uL (0.0-0.7); #Lymphocytes 1.8 thou/uL (1.20-3.40); #Neutrophils 6.8 thou/uL (1.40-6.50); %Basophils 0.9 % (0.0-1.0); %Eosinophils 1.6 % (0.0-10.0); %Lymphocytes 17.8 % (21.0-51.0); %Monocytes 10.6 % (0.0-10.0); %Neutrophils 69.2 % (42.0-75.0); Mean Corpuscular HGB CONC 33.5 g/dL (32.0-36.0); Mean Corpuscular Hemoglobin 31.2 pg (27.0-31.0); Mean Corpuscular Volume 93.2 fl (78.0-98.0); Mean Platelet Volume 7.9 fL (7.4-10.4); Platelet Count 266 10x3/uL (130-400); RBC Distribution Width 14.7 % (11.5-14.5); Red Blood Cell (RBC) Count 5.45 mill/uL (4.70-6.10); White Blood Cell (WBC) Count 9.9 10x3/uL (4.8-10.8)
[2022-11-16 05:38] VITALS: BMI 18.8
[2022-11-16 05:43] LABS: Anion Gap 15 mmol/L (10-20); BUN (Urea Nitrogen) 7 mg/dL (8.9-20.6); Calc. Creatinine Clearance 114 mL/min (70-130); Calcium 9.6 mg/dL (7.8-10.44); Carbon Dioxide 19 mmol/L (22-29); Chloride 104 mmol/L (98-107); Estimated GFR 115; Glucose 93 mg/dL (70-105); Potassium 3.6 mmol/L (3.5-5.1); Sodium 134 mmol/L (136-145)
[2022-11-16] MEDS: Acetaminophen 500 MG TAB PO SCH ×3 (09:08→20:49)
[2022-11-16] MEDS: Aspirin 325 mg Enteric Coated Tablet PO SCH (09:08)
[2022-11-16] MEDS: Metoprolol Tartrate 50 MG TAB PO SCH ×2 (09:09→20:50)
[2022-11-16] MEDS: Enoxaparin Sodium 40 MG/0.4 ML SYRINGE SC SCH (09:09)
[2022-11-16] MEDS: Escitalopram Oxalate 10 mg Tablet PO SCH (09:09)
[2022-11-16] MEDS: Multivit, Therapeutic 1 TAB PO SCH (09:09)
[2022-11-16] MEDS: Folic Acid 1 MG TAB PO SCH (09:09)
[2022-11-16] MEDS: Thiamine 100 MG TAB PO SCH (09:09)
[2022-11-16] MEDS ORDERED: Lidocaine 1% PF 5 ML VIAL ONE ×2 (13:29→13:32)
[2022-11-16] MEDS ORDERED: PROPOFOL 200 MG/20 ML VIAL ONE (13:32)
[2022-11-16] MEDS: Sacubitril 49 MG/Valsartan 51 MG TABLET PO SCH (20:49)
[2022-11-16] MEDS: Atorvastatin Calcium 40 MG TAB PO SCH (20:50)
[2022-11-17 05:44] LABS: #Eosinphils 0.2 thou/uL (0.0-0.7); #Lymphocytes 1.7 thou/uL (1.20-3.40); #Neutrophils 5.2 thou/uL (1.40-6.50); %Basophils 0.5 % (0.0-1.0); %Eosinophils 2.5 % (0.0-10.0); %Lymphocytes 20.5 % (21.0-51.0); %Monocytes 12.2 % (0.0-10.0); %Neutrophils 64.3 % (42.0-75.0); Hemoglobin 16.5 g/dL (14.0-18.0); Mean Corpuscular HGB CONC 33.3 g/dL (32.0-36.0); Mean Corpuscular Volume 92.9 fl (78.0-98.0); Mean Platelet Volume 7.8 fL (7.4-10.4); Platelet Count 237 10x3/uL (130-400); RBC Distribution Width 14.6 % (11.5-14.5); Red Blood Cell (RBC) Count 5.34 mill/uL (4.70-6.10); White Blood Cell (WBC) Count 8.1 10x3/uL (4.8-10.8)
[2022-11-17 06:42] LABS: Anion Gap 11 mmol/L (10-20); BUN (Urea Nitrogen) 8 mg/dL (8.9-20.6); Calc. Creatinine Clearance 107 mL/min (70-130); Calcium 9.1 mg/dL (7.8-10.44); Carbon Dioxide 22 mmol/L (22-29); Chloride 105 mmol/L (98-107); Estimated GFR 113; Glucose 83 mg/dL (70-105); Potassium 3.3 mmol/L (3.5-5.1); Sodium 135 mmol/L (136-145)
[2022-11-17] MEDS ORDERED: Potassium Chloride 20 MEQ TAB PO SCH (08:00)
[2022-11-17] MEDS: Metoprolol Tartrate 50 MG TAB PO SCH ×2 (08:25→20:21)
[2022-11-17] MEDS: Escitalopram Oxalate 10 mg Tablet PO SCH (08:25)
[2022-11-17] MEDS: Enoxaparin Sodium 40 MG/0.4 ML SYRINGE SC SCH (08:26)
[2022-11-17] MEDS: Acetaminophen 500 MG TAB PO SCH ×3 (08:26→20:21)
[2022-11-17] MEDS: Folic Acid 1 MG TAB PO SCH (08:26)
[2022-11-17] MEDS: Multivit, Therapeutic 1 TAB PO SCH (08:26)
[2022-11-17] MEDS: Thiamine 100 MG TAB PO SCH (08:26)
[2022-11-17] MEDS: Aspirin 325 mg Enteric Coated Tablet PO SCH (08:26)
[2022-11-17] MEDS: Lorazepam 1 MG TAB PO PRN ×2 (15:22→20:21)
[2022-11-17] MEDS: Atorvastatin Calcium 40 MG TAB PO SCH (20:21)
[2022-11-17] MEDS: Sacubitril 49 MG/Valsartan 51 MG TABLET PO SCH (20:21)
[2022-11-18] MEDS ORDERED: traMADol HCl 50 MG TAB PO SCH (01:30)
[2022-11-18] MEDS ORDERED: Lorazepam 1 MG TAB PO PRN (04:17)
[2022-11-18 05:50] LABS: #Eosinphils 0.2 thou/uL (0.0-0.7); #Lymphocytes 1.8 thou/uL (1.20-3.40); #Neutrophils 4.2 thou/uL (1.40-6.50); %Basophils 0.6 % (0.0-1.0); %Eosinophils 2.9 % (0.0-10.0); %Lymphocytes 25.2 % (21.0-51.0); %Monocytes 13.3 % (0.0-10.0); Hemoglobin 16.3 g/dL (14.0-18.0); Mean Corpuscular Hemoglobin 31.9 pg (27.0-31.0); Mean Platelet Volume 7.7 fL (7.4-10.4); Platelet Count 241 10x3/uL (130-400); RBC Distribution Width 14.6 % (11.5-14.5); Red Blood Cell (RBC) Count 5.09 mill/uL (4.70-6.10); White Blood Cell (WBC) Count 7.2 10x3/uL (4.8-10.8)
[2022-11-18 05:54] LABS: Anion Gap 12 mmol/L (10-20); BUN (Urea Nitrogen) 6 mg/dL (8.9-20.6); Calc. Creatinine Clearance 114 mL/min (70-130); Calcium 9.4 mg/dL (7.8-10.44); Carbon Dioxide 20 mmol/L (22-29); Chloride 107 mmol/L (98-107); Estimated GFR 115; Glucose 83 mg/dL (70-105); Potassium 3.7 mmol/L (3.5-5.1); Sodium 135 mmol/L (136-145)
[2022-11-18] MEDS: Acetaminophen 500 MG TAB PO SCH ×3 (08:24→20:15)
[2022-11-18] MEDS: Folic Acid 1 MG TAB PO SCH (08:25)
[2022-11-18] MEDS: Multivit, Therapeutic 1 TAB PO SCH (08:25)
[2022-11-18] MEDS: Aspirin 325 mg Enteric Coated Tablet PO SCH (08:25)
[2022-11-18] MEDS: Escitalopram Oxalate 10 mg Tablet PO SCH (08:25)
[2022-11-18] MEDS: Metoprolol Tartrate 50 MG TAB PO SCH ×2 (08:25→20:16)
[2022-11-18] MEDS: Thiamine 100 MG TAB PO SCH (08:25)
[2022-11-18] MEDS: Enoxaparin Sodium 40 MG/0.4 ML SYRINGE SC SCH (08:25)
[2022-11-18] MEDS: HYDROcodone/Acetaminophen 5/325 mg Tablet PO PRN (12:16)
[2022-11-18] MEDS: Atorvastatin Calcium 40 MG TAB PO SCH (20:15)
[2022-11-18] MEDS: Sacubitril 49 MG/Valsartan 51 MG TABLET PO SCH (20:15)
[2022-11-19] MEDS ORDERED: Lorazepam 0.5 MG TAB PO PRN (04:17)
[2022-11-19 06:07] LABS: #Eosinphils 0.1 thou/uL (0.0-0.7); #Lymphocytes 1.5 thou/uL (1.20-3.40); #Neutrophils 5.8 thou/uL (1.40-6.50); %Basophils 0.5 % (0.0-1.0); %Eosinophils 1.7 % (0.0-10.0); %Lymphocytes 17.6 % (21.0-51.0); %Monocytes 11.9 % (0.0-10.0); %Neutrophils 68.4 % (42.0-75.0); Hemoglobin 16.1 g/dL (14.0-18.0); Mean Corpuscular HGB CONC 33.5 g/dL (32.0-36.0); Mean Corpuscular Hemoglobin 31.3 pg (27.0-31.0); Mean Corpuscular Volume 93.5 fl (78.0-98.0); Mean Platelet Volume 7.8 fL (7.4-10.4); Platelet Count 249 10x3/uL (130-400); RBC Distribution Width 14.3 % (11.5-14.5); Red Blood Cell (RBC) Count 5.15 mill/uL (4.70-6.10); White Blood Cell (WBC) Count 8.4 10x3/uL (4.8-10.8)
[2022-11-19 06:16] LABS: Anion Gap 14 mmol/L (10-20); BUN (Urea Nitrogen) 7 mg/dL (8.9-20.6); Calc. Creatinine Clearance 116 mL/min (70-130); Calcium 9.3 mg/dL (7.8-10.44); Carbon Dioxide 19 mmol/L (22-29); Chloride 107 mmol/L (98-107); Estimated GFR 116; Glucose 76 mg/dL (70-105); Potassium 3.7 mmol/L (3.5-5.1); Sodium 136 mmol/L (136-145)
[2022-11-19] MEDS: Enoxaparin Sodium 40 MG/0.4 ML SYRINGE SC SCH (10:08)
[2022-11-19] MEDS: Aspirin 325 mg Enteric Coated Tablet PO SCH (10:08)
[2022-11-19] MEDS: Thiamine 100 MG TAB PO SCH (10:09)
[2022-11-19] MEDS: Multivit, Therapeutic 1 TAB PO SCH (10:09)
[2022-11-19] MEDS: Acetaminophen 500 MG TAB PO SCH ×3 (10:09→20:54)
[2022-11-19] MEDS: Folic Acid 1 MG TAB PO SCH (10:10)
[2022-11-19] MEDS: Escitalopram Oxalate 10 mg Tablet PO SCH (10:10)
[2022-11-19] MEDS: Metoprolol Tartrate 50 MG TAB PO SCH ×2 (10:10→20:56)
[2022-11-19] MEDS: HYDROcodone/Acetaminophen 5/325 mg Tablet PO PRN (11:21)
[2022-11-19] MEDS: Sacubitril 49 MG/Valsartan 51 MG TABLET PO SCH (20:56)
[2022-11-19] MEDS: Atorvastatin Calcium 40 MG TAB PO SCH (20:56)
[2022-11-20] MEDS: HYDROcodone/Acetaminophen 5/325 mg Tablet PO PRN ×3 (01:40→21:10)
[2022-11-20 05:45] LABS: Anion Gap 11 mmol/L (10-20); BUN (Urea Nitrogen) 6 mg/dL (8.9-20.6); Calc. Creatinine Clearance 111 mL/min (70-130); Calcium 9.1 mg/dL (7.8-10.44); Carbon Dioxide 22 mmol/L (22-29); Chloride 105 mmol/L (98-107); Estimated GFR 114; Glucose 84 mg/dL (70-105); Potassium 3.5 mmol/L (3.5-5.1); Sodium 134 mmol/L (136-145)
[2022-11-20 05:57] LABS: #Basophils 0.1 thou/uL (0.0-0.2); #Eosinphils 0.2 thou/uL (0.0-0.7); #Lymphocytes 1.8 thou/uL (1.20-3.40); #Monocytes 0.8 thou/uL (0.11-0.59); #Neutrophils 4.2 thou/uL (1.40-6.50); %Basophils 1.1 % (0.0-1.0); %Eosinophils 2.2 % (0.0-10.0); %Lymphocytes 25.4 % (21.0-51.0); %Monocytes 11.3 % (0.0-10.0); Hemoglobin 15.5 g/dL (14.0-18.0); Mean Corpuscular HGB CONC 33.5 g/dL (32.0-36.0); Mean Corpuscular Hemoglobin 31.3 pg (27.0-31.0); Mean Corpuscular Volume 93.3 fl (78.0-98.0); Mean Platelet Volume 7.7 fL (7.4-10.4); Platelet Count 229 10x3/uL (130-400); RBC Distribution Width 14.3 % (11.5-14.5); Red Blood Cell (RBC) Count 4.96 mill/uL (4.70-6.10)
[2022-11-20] MEDS ORDERED: Potassium Chloride 20 MEQ TAB PO SCH (08:45)
[2022-11-20] MEDS: Folic Acid 1 MG TAB PO SCH (09:39)
[2022-11-20] MEDS: Enoxaparin Sodium 40 MG/0.4 ML SYRINGE SC SCH (09:39)
[2022-11-20] MEDS: Thiamine 100 MG TAB PO SCH (09:40)
[2022-11-20] MEDS: Escitalopram Oxalate 10 mg Tablet PO SCH (09:40)
[2022-11-20] MEDS: Multivit, Therapeutic 1 TAB PO SCH (09:40)
[2022-11-20] MEDS: Aspirin 325 mg Enteric Coated Tablet PO SCH (09:40)
[2022-11-20] MEDS: Acetaminophen 500 MG TAB PO SCH ×3 (09:41→21:20)
[2022-11-20] MEDS: Metoprolol Tartrate 50 MG TAB PO SCH (09:42)
[2022-11-20] MEDS ORDERED: pyridOXINE 50 MG (B6) TAB PO SCH (21:00)
[2022-11-20] MEDS ORDERED: Cyanocobalamin (Vitamin B-12) 1,000 MCG TAB PO SCH (21:00)
[2022-11-20] MEDS: Atorvastatin Calcium 40 MG TAB PO SCH (21:09)
[2022-11-20] MEDS: Sacubitril 49 MG/Valsartan 51 MG TABLET PO SCH (21:10)
[2022-11-21] MEDS: HYDROcodone/Acetaminophen 5/325 mg Tablet PO PRN (04:35)
[2022-11-21] MEDS: Thiamine 100 MG TAB PO SCH (09:44)
[2022-11-21] MEDS: Aspirin 325 mg Enteric Coated Tablet PO SCH (09:44)
[2022-11-21] MEDS: Folic Acid 1 MG TAB PO SCH (09:44)
[2022-11-21] MEDS: Multivit, Therapeutic 1 TAB PO SCH (09:44)
[2022-11-21] MEDS: Enoxaparin Sodium 40 MG/0.4 ML SYRINGE SC SCH (09:45)
[2022-11-21] MEDS: Acetaminophen 500 MG TAB PO SCH (09:45)
[2022-11-21] MEDS: Escitalopram Oxalate 10 mg Tablet PO SCH (09:45)
[2022-11-21 12:06] VITALS: BP 131/91; TEMP 97.3
== END 2022-11-21 12:55 | disposition home or self-care (01) | DRG 62 ==
LOC: ERS 03:30 → ERHOLD 05:30 → CCU 10:35 → NEURO 11-15 23:20
PROVIDERS: ADMIT Internal Medicine; ATTEND Internal Medicine
PROC: 3E03317 Introduction of Other Thrombolytic into Peripheral Vein, Percutaneous Approach (ICD-10-PCS; principal; 2022-11-14)
PROC: B24BZZ4 Ultrasonography of Heart with Aorta, Transesophageal (ICD-10-PCS; 2022-11-16)
DX: I63.81 Other cerebral infarction due to occlusion or stenosis of small artery (principal); E87.1 Hypo-osmolality and hyponatremia; G81.91 Hemiplegia, unspecified affecting right dominant side; I50.42 Chronic combined systolic (congestive) and diastolic (congestive) heart failure; I42.8 Other cardiomyopathies; I11.0 Hypertensive heart disease with heart failure; F12.10 Cannabis abuse, uncomplicated; F17.210 Nicotine dependence, cigarettes, uncomplicated; I25.10 Atherosclerotic heart disease of native coronary artery without angina pectoris; R29.707 NIHSS score 7; R47.81 Slurred speech; F10.20 Alcohol dependence, uncomplicated; E87.6 Hypokalemia; Z88.0 Allergy status to penicillin; Z88.2 Allergy status to sulfonamides; Z79.01 Long term (current) use of anticoagulants; Z79.899 Other long term (current) drug therapy
CPT/HCPCS: 36415; 36416; 70450; 70496; 70498; 70551; 71045; 74230; 80048; 80053; 80061; 80306; 80307; 82550; 84484; 85025; 85610; 85730; 86850; 86900; 86901; 87040; 87811; 93005; 93312; 96374; J0360; J1650; J2704; J3101; J7120; Q9967; U0002